=== PATIENT | male | born 1940 | race Caucasian/White ===

== ENCOUNTER → 2019-10-18 12:07 | Outpatient (BNVA) | payer MEDICARE, OTHER, SELFPAY | PROVIDERS: PCP Physician Assistant Medical; Visit Provider Internal Medicine Cardiovascular Disease | DX: I25.10 Atherosclerotic heart disease of native coronary artery without angina pectoris (principal); R94.39 Abnormal result of other cardiovascular function study; Z79.01 Long term (current) use of anticoagulants; R06.02 Shortness of breath; R07.1 Chest pain on breathing; E78.2 Mixed hyperlipidemia; I10 Essential (primary) hypertension; E11.65 Type 2 diabetes mellitus with hyperglycemia | CPT/HCPCS: 80048; 85025 ==

== ENCOUNTER 2019-10-19 13:51 | Observation (INO) | payer MEDICARE, OTHER, SELFPAY ==
--- NOTE | 2019-10-18 12:00 | XR_ITS ---
WS: [id number] XR chest 2V* [id number] REASON FOR EXAM: chest pain FINDINGS: The heart mediastinum are normal. The lung thomason are well aerated. No pneumonia, pleural effusion, pulmonary edema, or pneumothorax. The hilum and apices are normal. No osseous abnormalities. XR/XR chest 2V* [id number] IMPRESSION: Negative chest for acute pathology.
[2019-10-19] VITALS (45 sets, daily range): BP systolic 93–163; BP diastolic 45–134; PULSE 59–93; RESP 13–24; TEMP 36.6; O2SAT 95–100; BMI 25.4
--- NOTE | 2019-10-19 10:00 | XACV_ITS ---
Ht: 178 cm Wt: 80 kg BSA: 2.00 m2 Gender: Male : 1940 Any Known Allergies: No known allergies Exam Priority: Routine Procedure(s): Procedure Description: Diagnostic procedure Procedure Description: PCI procedure Procedure Description: Drug Eluting Coronary Stent Procedure Description: PTCA Procedure Description: Miscellaneous Procedure Description: ACT Procedure Description: Coronary Angiography Diagnostic Cath Status: Elective Diagnostic Findings Coronary angiography shows right dominance. The left main is a medium caliber vessel with mild diffuse disease. The left artery descending artery is a medium caliber vessel which appears to taper off towards the LV apex. The proximal stented segment of the LAD was found to be patent. No significant in-stent stenosis. The mid LAD was found to have minimal intimal irregularities. After the third diagonal branch, the LAD proper was found to have around 80 to 90% tubular narrowing. The distal LAD is a very small caliber vessel. The first septal heel sprayer was found to have 80 to 90% diffuse narrowing proximally. No other significant stenosis. The left circumflex artery is a medium caliber vessel. After giving off the first obtuse marginal branch, the circumflex artery was found to have around 90% lesion, involving the ostium. The mid and distal circumflex artery appears to have no significant stenotic lesions. The right coronary artery is a medium to large caliber vessel with was found to have mild diffuse intimal irregularities in the mid and distal segments. No significant stenotic lesions. The first RV branch also was found to be relatively long vessel with mild diffuse intimal irregularities. PCI Status: Elective Interventional Findings Mid Circumflex Coronary Artery: 99% stenosis treated with AB TREK 2.50X12 RX BALLOON, MDT R TYRELL 3.0X8 TIFFANY, and MDT CARMENZA EUPHORA RX 3.06R37CL BALLOON. 0% residual stenosis, BHARATHI: 3 flow. First Obtuse Marginal Branch Segment: 70% stenosis treated with AB MINI TREK 2.00X6 RX BALLOON. 0% residual stenosis, BHARATHI: 3 flow. Conclusions This is an 79-year-old white male with a history of hypertension, diabetes, dyslipidemia, coronary disease, status post PCI of the LAD in 2015, presenting with increasing episodes of chest pain and shortness of breath. He had a myocardial perfusion imaging in September of last year which revealed some areas of reversible and reversible defects. Because of the patient symptoms, a cardiac catheterization was recommended at that time. But the patient was wanting to wait and try medications. Lately his symptoms are getting worse. For that reason, a repeat cardiac catheterization was recommended. Patient underwent left heart catheterization with left and right coronary angiogram and LV angiogram today. The findings are as follows. The stented segment of the LAD was patent. There was a high-grade lesion in the distal LAD after the third diagonal branch. The distal left anterior descending artery was found to be a small caliber vessel . There is a high-grade lesion of around 90% at the mid circumflex, soon after the takeoff of the first obtuse marginal branch. Mild diffuse disease in the other vessels. LV ejection fraction was 55%. LVEDP 15 mmHg. Mild hypokinesia of the LV apex. I discussed and reviewed the cardiac catheterization data with It was thought to be appropriate to consider PCI of the circumflex and possible LAD lesions. Dr. Thompson took over further management of this patient at this point. Mid Circumflex Coronary Artery was treated with two Balloon and Drug Eluting Stent. First Obtuse Marginal Branch Segment was treated with Balloon. Recommendations 1-Return to inpatient for close monitoring and routine cath care2-Risk factor modification for secondary prevention3-Statin and aspirin 81 mg life--long, if tolerated4-Plavix 75mg p.o. daily for at least one year. We will assess at the end of one year again to continue if further or not5-Continue optimal medical management. Interventional RX Recommendation: PCI w/o planned CABG Diagnostic RX Recommendation: PCI w/o planned CABG Ejection Fraction: 55.0 % LV EDP: 15 mmHg Left Ventriculography Findings: The LV gram was performed the FONTENOT projection. The LV cavity appears to be of normal size. There is mild hypokinesia of the LV apex. No significant mitral valve prolapse or any mitral regurgitation. Pressures Phase:Rest AO : 134 mmHg / 63 mmHg ( 93 mmHg ) @ 7:42:00 AM 131 mmHg / 61 mmHg ( 90 mmHg ) @ 7:42:00 AM LV : 124 mmHg / -10 mmHg / @ 7:40:00 AM 120 mmHg / 1 mmHg / @ 7:42:00 AM 122 mmHg / -1 mmHg / @ 7:42:00 AM Valves Phase:DefaultPhase AV : 0.0 mmHg @ 1:42:09 PM AV Mean Gradient: 0.0 mmHg @ 1:42:09 PM Clinical Evaluation EBL: 5mL-10mL Procedural Details Procedure Consent Obtained. Pre-Procedure Time Out. Identified patient by full name and date of as verbalized by the patient/guarantor. Does the consent match the physician's order: Yes. Accurate & Complete Informed Consent: Yes. Inpatient/Outpatient History & Physical on Chart: Yes. If H&P is completed, is and addenduem needed: No; If yes, is the addendum complete: N/A. Visualize and Verify Site with Patient/Guarantor: N/A. Relevant Radiology Images available: Yes. Pre-op teaching completed and patient verbalized understanding. The risks, benefits, and alternatives of sedation and/or procedure were discussed by physician. The patient agrees to continue. Procedure started. Correct patient, site and procedure confirmed by cath team. Current diagnosis: Chest Pain. PERRLA. 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 Lungs clear x 5 lobes. IV Site on Arrival: 18 gauge in the left anticubital. IV Fluids: 0.9% NaCl at KVO. 0 mL infused prior to woven label designer. Oxygen started at 2liters/min via nasal canula. bilateral groins was prepped with chloroprep then draped in the usual sterile fashion. right radial was prepped with chloroprep then draped in the usual sterile fashion. Physician notified. Baseline sample Acquired. HR: 60 BPM. Physician arrived. Equipment: 6F - Radial. Game [employer] Manifold Kit Model BT 2000. Cardiac Cath Pack. Heparinized Saline (2 units/mL), 1000 mL bag. Physician scrubbed in. Immediate Pre-Procedure Time Out. Correct Patient: Yes; Correct Procedure: Yes; Correct Site: Yes; Correct Patient Position: Yes; Correct Supplies: Yes; Dried Flammable Prep: Yes; Blood Products Available: No;. Lidocaine 1% infiltrated to the right radial. Unable to obtain radial access. MD attempting to gain access in the Femoral artery. Lidocaine 1% infiltrated to the right groin. Arterial access obtained with micropuncture set. A 5 andorran JL4 catheter in over wire. Multiple views taken of left coronary artery. Catheter out. A 5 andorran JR4 catheter in over wire. Multiple views taken of right coronary artery. A 5 andorran Angled Pig catheter in over wire. Dr. Thompson contacted. EDP Sample taken: LV 124/-11,11; HR: 80 BPM; SpO2: 96%. Dr. Thompson arrived. LV gram performed in FONTENOT @ 10 mL/second for a total of 30 mL. EDP Sample taken: LV 120/1,12; HR: 78 BPM; SpO2: 96%. Pullback taken: LV 122/-2,13; AO 134/63(93); Mean: 0mmHg, Peak to Peak: 0mmHg, SEP: 7sec/min; HR: 78 BPM; SpO2: 96%. Flushing sheath periodically to maintain patency. Dr. Soto scrubbed out to review films. Dr. Thompson scrubbed in. Dr. Soto contacted and spoke with patient's . 6 andorran XB 3.5 guide catheter was inserted over the wire. [place] guidewire was advanced through the guide catheter to lesion in the mid Circ. Inflation number : 1 A AB TREK 2.50X12 RX BALLOON was prepped and advanced across the Mid CX , then inflated to 12 DANII for 0:09 seconds. Inflation number: 2 The AB TREK 2.50X12 RX BALLOON was reinflated across the Mid CX, to 12 DANII for 0:11 seconds. Balloon out. Inflation Number : 3 Yves Olivo TYRELL 3.0X8 TIFFANY -Lot Number# [id number] was prepped and advanced across the Mid CX. The stent was deployed at 12 DANII for 0:12 seconds. Stent expiration date: 05-15-2021. Stent balloon out over wire. Inflation number : 4 A MDT NC EUPHORA RX [id number] BALLOON was prepped and advanced across the Mid CX , then inflated to 12 DANII for 0:15 seconds. Inflation number: 5 The MDT NC EUPHORA RX 3.13S28BP BALLOON was reinflated across the Mid CX, to 12 DANII for 0:08 seconds. [place] wire out. ACT drawn. Results 277 seconds. Therapeutic limits - pre-heparin administration 90-150 seconds and monitoring heparin during a vascular procedure >250 seconds. Runthrough wire inserted. Inflation number : 1 A AB MINI TREK 2.00X6 RX BALLOON was prepped and advanced across the 1st Ob Ofe , then inflated to 10 DANII for 0:12 seconds. Inflation number: 2 The AB MINI TREK 2.00X6 RX BALLOON was reinflated across the 1st Ob Ofe, to 10 DANII for 0:06 seconds. Balloon and runthrough wire out. Sheath(s) sutured into position with 2-0 silk and sterile 4x4's and Op-site applied over the site. No oozing or signs and symptoms of hematoma noted. Arterial sheath flushed and connected to tranducer and pressure bag with heparinized saline. Post Procedure: Pulses reassessed and unchanged. PERRLA. 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 No VTE prophylaxis required. Medication's Wasted: Lidocaine 1% = 6 mL. Medication's Wasted: Heparin = 500 units. Medication's Wasted: Verapamil = 5 mg. Total IV fluids: 150 mL. Contrast type used: Omnipaque 300 mgI/mL, 500 mL bottle. Post-op diagnosis: Obstructive CAD. Complications: None. Estimated blood loss: 5mL-10mL. [facility] Clinical Fraility Score: 4: Vulnerable. Put In Beat Adjuster Indications: Worsening Angina. Chest Pain Symptom Assessment: Atypical Angina. Cardiovascular Instability: No. PCI Indication: CAD (without ischemic symptoms). Vital chart was stopped. Procedure completed. Patient transferred by bed to 1st floor. Site: Right Femoral artery Sheath Size: 5 Fr Hemostasis Success: Unsuccessful Procedure Medications Start: 12:09 PM Stop: 12:09 PM Medication: Versed Amount: 1 mg Route: I.V. Start: 12:10 PM Stop: 12:10 PM Medication: Fentanyl Amount: 50 mcg Route: I.V. Start: 12:20 PM Stop: 12:20 PM Medication: Versed Amount: 1 mg Route: I.V. Start: 12:25 PM Stop: 12:25 PM Medication: Versed Amount: 1 mg Route: I.V. Start: 12:25 PM Stop: 12:25 PM Medication: Fentanyl Amount: 50 mcg Route: I.V. Start: 12:28 PM Stop: 12:28 PM Medication: Heparin Amount: 1500 units Route: I.V. Start: 12:54 PM Stop: 12:54 PM Medication: Versed Amount: 1 mg Route: I.V. Start: 12:54 PM Stop: 12:54 PM Medication: Heparin Amount: 7000 units Route: I.V. I, the attending physician, have reviewed and verified all procedure medications. Yes, all medications given per verbal order History/Risk Factors Hypertension: Yes Dyslipidemia: Yes Diabetic Therapy: Insulin Peripheral Arterial Disease (PAD): No Myocardial Infarction (IL): Yes Obesity: No Renal Disease: No Tobacco Use: Never Prior Interventions PCI: Yes CABG: No Valve Surgery: No Date of PCI: 04/17/2016 Report Signatures Interventional Workflow - Finalized by: Franky Thompson MD on 10/31/2019 4:05:38 PM Diagnostic Workflow - Finalized by:Dr Tyra Soto MD [facility] on 10/19/2019 3:24:05 PM
--- NOTE | 2019-10-19 11:19 | W.PM.OPSUD ---
Surgery/Procedure H&P Update DATE OF PROCEDURE: October 19, 2019 DATE H&P PERFORMED: 10/18/19 H&P UPDATE INFORMATION: I have reviewed H&P completed within last 30 days, I have examined patient prior to procedure and No changes to prior documentation PREOP DIAGNOSIS: Atherosclerotic heart disease/unstable angina PLANNED PROCEDURE: Operation Date: 10/19/19 12:00 Proposed Procedures p Cardiac Catheterization(Left) - Tyra Soto MD PATIENT REASSESSED PRIOR TO SEDATION, WITH NO CHANGE NOTED: Yes PHYSICAL EXAM: alert, oriented x 3, clear to auscultation bilaterally and regular rate & rhythm AIRWAY EVAL/ANESTHESIA PLAN: normal airway, ASA III, Monitored Anesthesia, Local Anesthesia, Risks, benefits & alternatives of sedation and/or procedure discussed and Patient agrees to continue as planned
[2019-10-19 15:11] LABS: Glucose Point of Care 78 mg/dL (70-110)
[2019-10-19 16:06] LABS: Glucose Point of Care 125 mg/dL (70-110)
[2019-10-19 16:40] LABS: Partial Thromboplastin Time 156.6 SECONDS (23.9-36.7)
[2019-10-19] MEDS: ALPRAZolam 0.25 mg Tablet 0.125 MG PO (18:24)
--- NOTE | 2019-10-19 19:29 | PC.NURSE ---
REPORT RECEIVED FROM OFF GOING NURSE. PT DENIES PAIN AT THIS TIME. PT WISHES THAT THEY DIDN'T HAVE TO LAY ON THEIR BACK ANYMORE. WAITING ON PTT RESULTS FROM LAB TO COME BACK. DRESSING TO RIGHT GROIN IS C/D/I. SHEETH STILL IN PLACE. RN TO REMOVE PENDING PTT RESULTS. WILL CONTINUE TO MONITOR.
[2019-10-19 19:31] LABS: Partial Thromboplastin Time 33.8 SECONDS (23.9-36.7)
[2019-10-19 20:41] LABS: Glucose Point of Care 271 mg/dL (70-110)
[2019-10-19] MEDS: acetaminophen 325 mg Tablet 650 MG PO (20:53)
--- NOTE | 2019-10-19 21:26 | PC.NURSE ---
Initiated sheath removal at 2202 per protocol using aseptic technique. Hemostasis achieved immediately. Maintained pressure for 20min. No s/s of bleeding or hematoma formation. Dressed site with 2x2 and bio-occlusive. VS monitored every 5min and remained WNL. Patient denies pain to site. Instruction provided regarding site care and restrictions. Patient stated, I have been through this procedure many times verbalizing complete understanding. Positioned patient for comfort.
[2019-10-19 23:41] LABS: Anion Gap 16.1 (5-19); Blood Urea Nitrogen 16 mg/dL (8-23); Calcium 9.3 mg/dL (8.5-10.5); Carbon Dioxide 23 mmol/L (22-29); Chloride 99 mmol/L (98-107); Glucose 149 mg/dL (65-115); Osmolality Calculated 277 mOsm/kg (285-295); Potassium 4.1 mmol/L (3.5-5.1); Sodium 134 mmol/L (136-145)
[2019-10-20] VITALS (9 sets, daily range): BP systolic 105–136; BP diastolic 50–83; PULSE 61–100; RESP 15–22; TEMP 36.5–36.7; O2SAT 95–96
[2019-10-20] MEDS: acetaminophen 325 mg Tablet 650 MG PO (04:47)
[2019-10-20 05:49] LABS: Basophils % 0.2 %; Eosinophils % 0.2 %; Hematocrit 43.5 % (42.0-52.0); Hemoglobin 14.4 g/dL (11.7-16.6); Lymphocytes # 1.1 10^3/uL (0.8-4.8); Lymphocytes % 8.8 %; Mean Corpuscular HGB Conc 33.1 g/dL (30.0-36.0); Mean Corpuscular Hemoglobin 33.4 pg (28.0-34.0); Mean Corpuscular Volume 100.9 fL (80-94); Mean Platelet Volume 10.3 fL (7.4-10.4); Monocytes # 0.7 10^3/uL (0.2-0.9); Monocytes % 5.4 %; Neutrophils # 10.9 10^3/uL (1.8-7.7); Neutrophils % 84.9 %; Nucleated Red Blood Cells % 0 %; Platelet Count 174 10^3/cmm (130-400); Red Blood Count 4.31 10^6/uL (4.1-5.3); Red Cell Distribution Width 12.5 % (12.1-15.1); White Blood Count 12.8 10^3/uL (4.0-10.0)
[2019-10-20 06:11] LABS: Anion Gap 17.2 (5-19); Blood Urea Nitrogen 16 mg/dL (8-23); Calcium 9.3 mg/dL (8.5-10.5); Carbon Dioxide 23 mmol/L (22-29); Chloride 100 mmol/L (98-107); Glucose 93 mg/dL (65-115); Osmolality Calculated 278 mOsm/kg (285-295); Potassium 4.2 mmol/L (3.5-5.1); Sodium 136 mmol/L (136-145)
[2019-10-20 06:23] LABS: Glucose Point of Care 114 mg/dL (70-110)
--- NOTE | 2019-10-20 06:35 | PC.NURSE ---
PT HAD C/O HEADACHE 8/ PAIN. PRN TYLENOL WAS GIVEN. PT DENIES PAIN AT THIS TIME. DRESSING TO RIGHT GROIN IS C/D/I. NO REDNESS OR HEMATOMA PRESENT. WILL DO BESIDE REPORT WITH NURSE.
[2019-10-20 06:39] LABS: Basophils % 0.3 %; Eosinophils # 0.1 10^3/uL (0.0-0.8); Hematocrit 41.5 % (42.0-52.0); Hemoglobin 13.6 g/dL (11.7-16.6); Lymphocytes # 1.7 10^3/uL (0.8-4.8); Lymphocytes % 19.1 %; Mean Corpuscular HGB Conc 32.8 g/dL (30.0-36.0); Mean Corpuscular Hemoglobin 33.5 pg (28.0-34.0); Mean Corpuscular Volume 102.2 fL (80-94); Mean Platelet Volume 10.7 fL (7.4-10.4); Monocytes # 0.7 10^3/uL (0.2-0.9); Monocytes % 7.3 %; Neutrophils # 6.5 10^3/uL (1.8-7.7); Neutrophils % 72.1 %; Nucleated Red Blood Cells % 0 %; Platelet Count 165 10^3/cmm (130-400); Red Blood Count 4.06 10^6/uL (4.1-5.3); Red Cell Distribution Width 12.6 % (12.1-15.1)
[2019-10-20] MEDS: aspirin 81 mg EC Tablet PO (09:14)
[2019-10-20] MEDS: clopidogrel 75 mg Tablet PO (09:14)
[2019-10-20] MEDS: ALPRAZolam 0.25 mg Tablet 0.125 MG PO (09:14)
[2019-10-20] MEDS: lisinopril 10 mg Tablet 30 MG PO (09:15)
--- NOTE | 2019-10-20 09:49 | PM.DCS ---
Discharge Providers Date of Admission: 10/19/19 13:51 Date of Discharge: October 20, 2019 Attending Provider at Admission: Tyra Soto MD Attending Provider at Discharge: Robyn Rehman MD Primary Care Provider: Porter Mirza Diagnoses at Discharge Discharge Diagnosis (1) Abnormal stress test: Status: Acute (2) CAD (coronary artery disease): Status: Acute Problem details: Status post drug-eluting stent placement to mid circumflex and balloon angioplasty of jailed first obtuse marginal. Continue dual antiplatelet therapy and low-dose Crestor. Qualifiers: Coronary Disease-Associated Artery/Lesion type: cantwell artery [place] vs. transplanted heart: cantwell heart Associated angina: without angina Qualified Code(s): I25.10 - Atherosclerotic heart disease of cantwell coronary artery without angina pectoris (3) Hypertension: Status: Acute Problem details: Well-controlled. Continue current medications. Qualifiers: Hypertension type: essential hypertension Qualified Code(s): I10 - Essential (primary) hypertension (4) Hyperlipidemia: Status: Acute Qualifiers: Hyperlipidemia type: mixed hyperlipidemia Qualified Code(s): E78.2 - Mixed hyperlipidemia (5) Diabetes: Status: Acute Qualifiers: Diabetes mellitus type: type 2 Diabetes mellitus custodial insulin use: without custodial use Diabetes mellitus complication status: with hyperglycemia Qualified Code(s): E11.65 - Type 2 diabetes mellitus with hyperglycemia Reason for Visit Reason for Visit: NO DX AVAILABLE Brief History: Clinton is a 78-year-old man with past medical history of coronary artery disease status post drug-eluting stent placement in proximal LAD after non-ST elevation [place] in April 2016, hypertension, hyperlipidemia, diabetes mellitus type 2, history of TIA with right-sided weakness on 24 October 2018. He usually follows up with Dr. Soto and last saw him on 18 October 2019. He started having some left arm and chest pain and subsequently underwent sestamibi myocardial perfusion imaging that revealed moderate area of moderately decreased persistent tracer uptake in inferior and inferolateral hodges with subtle area of inconsistent reversibility in mid inferior and inferolateral hodges. Left ventricular ejection fraction was 86% with no regional wall motion abnormality. Given these findings, patient underwent elective outpatient coronary angiogram. Hospital Course Hospital Course: Patient underwent coronary angiogram with Dr. Soto and Dr. Thompson. He was found to have 99% stenosis of mid circumflex and underwent drug-eluting stent placement x 1. OM1 was jailed and underwent ballooning with good results at the end of the procedure. His only concern this morning is episodes of dizziness that he has been having for a while. Denies having any chest pain or shortness of breath. Physical Exam Narrative: EXAM NARRATIVE: GENERAL: Averagely built and averagely nourished in no acute distress HEENT: Extraocular movement intact. Pupils equal round reactive to light. No pallor or icterus. NECK: central trachea, no JVD, No carotid bruit. CARDIOVASCULAR SYSTEM: S1-S2 regular. No S3 or S4 present. No murmur rubs or gallops. RESPIRATORY SYSTEM: Chest clear to auscultation. No wheezes rhonchi or rubs heard. No use of accessory muscles. EXTREMITIES: No cyanosis or clubbing. No edema. No signs of chronic venous insufficiency. Right femoral access site with no significant bruising or hematoma. 2+ femoral, dorsalis pedis COUNTERINTELLIGENCE AGENT: Patient is alert oriented ?3. No focal neurological deficits. PSYCH: Normal insight and judgment. Discharge Data Data Completed and Pending: Completed Studies During Hospitalization Category Date Time Status XR chest 2V* [id number] 6 Routine Exams 10/18/19 12:00 Completed Pending at discharge Category Date Time Status PROJECT GEOPHYSICIST request for service Routin e Exams 10/19/19 10:00 Taken Labs from last 24 hours 10/20/19 10/20/19 10/20/19 06:15 05:10 05:10 WBC 12.8 H RBC 4.31 Hgb 14.4 Hct 43.5 MCV 100.9 H MCH 33.4 MCHC 33.1 RDW 12.5 Plt Count 174 MPV 10.3 Neut % (Auto) 84.9 Lymph % (Auto) 8.8 [place] % (Auto) 5.4 Eos % (Auto) 0.2 Baso % (Auto) 0.2 Neut # (Auto) 10.9 H Lymph # (Auto) 1.1 [place] # (Auto) 0.7 Eos # (Auto) 0.0 Baso # (Auto) 0.0 Nucleated RBC % (a uto) 0 Nucleated RBCs # 0.0 APTT Sodium 136 Potassium 4.2 Chloride 100 Carbon Dioxide 23 Anion Gap 17.2 BUN 16 Creatinine 1.0 Glucose 93 POC Glucose 114 Calculated Osmolal ity 278 L Calcium 9.3 06/19/20 06/19/20 06/19/20 23:10 23:10 20:03 WBC 9.0 RBC 4.06 L Hgb 13.6 Hct 41.5 L MCV 102.2 H MCH 33.5 MCHC 32.8 RDW 12.6 Plt Count 165 MPV 10.7 H Neut % (Auto) 72.1 Lymph % (Auto) 19.1 [place] % (Auto) 7.3 Eos % (Auto) 1.0 Baso % (Auto) 0.3 Neut # (Auto) 6.5 Lymph # (Auto) 1.7 [place] # (Auto) 0.7 Eos # (Auto) 0.1 Baso # (Auto) 0.0 Nucleated RBC % (a uto) 0 Nucleated RBCs # 0.0 APTT Sodium 134 L Potassium 4.1 Chloride 99 Carbon Dioxide 23 Anion Gap 16.1 BUN 16 Creatinine 1.0 Glucose 149 H POC Glucose 271 Calculated Osmolal ity 277 L Calcium 9.3 10/19/19 10/19/19 10/19/19 19:03 17:30 16:00 WBC RBC Hgb Hct MCV MCH MCHC RDW Plt Count MPV Neut % (Auto) Lymph % (Auto) [place] % (Auto) Eos % (Auto) Baso % (Auto) Neut # (Auto) Lymph # (Auto) [place] # (Auto) Eos # (Auto) Baso # (Auto) Nucleated RBC % (a uto) Nucleated RBCs # APTT 33.8 66.0 H D Sodium Potassium Chloride Carbon Dioxide Anion Gap BUN Creatinine Glucose POC Glucose 125 Calculated Osmolal ity Calcium 10/19/19 10/19/19 15:45 15:03 WBC RBC Hgb Hct MCV MCH MCHC RDW Plt Count MPV Neut % (Auto) Lymph % (Auto) [place] % (Auto) Eos % (Auto) Baso % (Auto) Neut # (Auto) Lymph # (Auto) [place] # (Auto) Eos # (Auto) Baso # (Auto) Nucleated RBC % (a uto) Nucleated RBCs # APTT 156.6 H* Sodium Potassium Chloride Carbon Dioxide Anion Gap BUN Creatinine Glucose POC Glucose 78 Calculated Osmolal ity Calcium Vitals: Last Vital Signs Temp 98.0 F 10/20/19 07:23 Pulse 79 10/20/19 07:23 Resp 15 10/20/19 07:23 BP 136/82 10/20/19 07:23 Pulse Ox 95 10/20/19 07:23 Discharge Plan Discharge Patient Disposition: Home, Self-Care Condition: Stable Prescriptions: Continued lisinopril 30 mg tablet 30 mg PO DAILY RF: 0 clopidogrel 75 mg tablet 75 mg PO DAILY RF: 0 rosuvastatin 5 mg tablet 5 mg PO DAILY RF: 0 Tresiba FlexTouch U-100 100 unit/mL (3 mL) insulin pen 12 unit SUBCUT DAILY RF: 0 nitroglycerin [Nitrostat] 0.4 mg tablet, sublingual 0.4 mg SUBLINGUAL Q5M PRN (Reason: Chest Pain) RF: 0 glipizide 10 mg tablet extended release 24hr 10 mg PO BID RF: 0 alprazolam 0.25 mg tablet 0.125 mg PO BID RF: 0 aspirin [Adult Low Dose Aspirin] 81 mg tablet,delayed release (DR/EC) 81 mg PO DAILY RF: 0 Discharge Orders: Discharge Order (Routine); Ordered 10/20/19 Ordered By: Robyn Rehman Referrals: Tyra Soto MD [Physician] - 3 months Nicki Martinez FNP [Nurse Practitioner] - 1 week (Post cath. Follow up for site check and BMP) Discharge Diet: Cardiac and Low Fat Discharge Activity: Increase activity as tolerated Patient Instructions: Left Heart Catheterization (DC) Activity Restrictions/Additional Instructions: Do not lift anything more than 10 lbs for 1 week. Keep the site dry and clean Take medications as prescribed and follow up as scheduled. Discharge Attestations Time Spent in Discharge Care*: less than 30 min Specific Discharge Activities: Specific discharge activities: educating patient and documenting/other paperwork Status at Discharge: Cognitive status at discharge: cognitively intact, Behavioral status at discharge: cooperative, Functional status at discharge: independent ambulation Quality Metrics Clinical Quality Measures During this hospital stay, did patient experience: None Coding Level of Care Code Acute Supervisor Residential for [facility] Diagnoses Abnormal stress test R94.39 CAD (coronary artery disease) I25.10 Coronary Disease-Associated Artery/Lesion type: cantwell artery [place] vs. transplanted heart: cantwell heart Associated angina: without angina Hypertension I10 Hypertension type: essential hypertension Hyperlipidemia E78.2 Hyperlipidemia type: mixed hyperlipidemia Diabetes E11.65 Diabetes mellitus type: type 2 Diabetes mellitus custodial insulin use: without custodial use Diabetes mellitus complication status: with hyperglycemia
--- NOTE | 2019-10-20 11:11 | PC.NURSE ---
Discharge to home Instructed pt on ff-up appointments. Educated pt on post angiogram home care instructions such as activity, how to take care of his incision and what to expect. Informed pt to take his glipizide starting tomorrow as ordered and to continue the rest of his home meds. Pt verbalizes understanding. Discharge papers provided. Ushered pt via wheelchair to E.R
== END 2019-10-20 11:07 | disposition home or self-care (01) ==
LOC: CSU 13:53
PROVIDERS: Internal Medicine Cardiovascular Disease; Admitting Provider Internal Medicine Cardiovascular Disease; PCP Physician Assistant Medical; Visit Provider Internal Medicine Cardiovascular Disease
DX: I25.110 Atherosclerotic heart disease of native coronary artery with unstable angina pectoris (principal); R94.39 Abnormal result of other cardiovascular function study; E78.2 Mixed hyperlipidemia; I10 Essential (primary) hypertension; E11.65 Type 2 diabetes mellitus with hyperglycemia; I25.10 Atherosclerotic heart disease of native coronary artery without angina pectoris; Z79.01 Long term (current) use of anticoagulants; R06.02 Shortness of breath; R07.1 Chest pain on breathing
CPT/HCPCS: 12345; 36415; 36416; 71046; 80048; 82962; 85025; 85347; 85730; 93452; 96372; C1725; C1769; C1874; C1887; C1894; C9600; G0378; J1644; J1815; J2001; J2250; J3010; J3490; J7030; Q0163; Q9967

== ENCOUNTER → 2019-10-29 10:56 | Outpatient (BNVA) | payer MEDICARE, OTHER, SELFPAY | PROVIDERS: PCP Physician Assistant Medical; Visit Provider Internal Medicine Cardiovascular Disease | DX: R07.1 Chest pain on breathing (principal); R06.02 Shortness of breath; E78.2 Mixed hyperlipidemia; I25.10 Atherosclerotic heart disease of native coronary artery without angina pectoris; E11.65 Type 2 diabetes mellitus with hyperglycemia; I10 Essential (primary) hypertension | CPT/HCPCS: 80048; 84484 ==

== ENCOUNTER → 2019-12-26 15:02 | Outpatient (BNVA) | payer MEDICARE, OTHER, SELFPAY | PROVIDERS: PCP Physician Assistant Medical; Visit Provider Internal Medicine Cardiovascular Disease | DX: Z79.01 Long term (current) use of anticoagulants (principal); R06.02 Shortness of breath | CPT/HCPCS: 80048; 85025 ==

== ENCOUNTER → 2020-02-25 15:02 | Outpatient (BNVA) | payer MEDICARE, OTHER, SELFPAY | PROVIDERS: PCP Physician Assistant Medical; Visit Provider Internal Medicine Cardiovascular Disease | DX: I25.10 Atherosclerotic heart disease of native coronary artery without angina pectoris (principal); Z79.01 Long term (current) use of anticoagulants; R06.02 Shortness of breath; R07.1 Chest pain on breathing; I10 Essential (primary) hypertension; R07.9 Chest pain, unspecified | CPT/HCPCS: 80048 ==

== ENCOUNTER 2021-03-29 15:20 | Inpatient (IN) | payer MEDICARE, OTHER, SELFPAY ==
[2021-03-29] VITALS (7 sets, daily range): BP systolic 125–161; BP diastolic 74–89; PULSE 69–100; RESP 13–18; TEMP 36.3; O2SAT 98–100; BMI 26.5
--- NOTE | 2021-03-29 15:44 | XRR_ITS ---
PROCEDURE INFORMATION: Exam: XR Chest Exam date and time: 03/29/2021 3:44 PM Age: 80 years old Clinical indication: Left-sided; Patient HX: Chest pain down L arm TECHNIQUE: Imaging protocol: XR of the chest. Views: 1 view. Total images: 1 COMPARISON: CR XR chest 2V* [id number] 10/18/2019 2:12 PM FINDINGS: Lungs: Minimal left basilar costophrenic angle subsegmental consolidated alveolar airspace disease which could reflect atelectasis and/or pneumonia. Pleural spaces: No visible pneumothorax or pleural effusion. Heart/Mediastinum: Cardiac structures and configuration with arteriosclerosis. Bones/joints: Unremarkable. XR/XR chest 1V portable [id number] IMPRESSION: Minimal left basilar costophrenic angle subsegmental consolidated alveolar airspace disease which could reflect atelectasis and/or pneumonia. Radiation Dose CTDIVOL = (mGy): DLP = (mGy-cm)
--- NOTE | 2021-03-29 15:45 | ECG_ITS ---
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
[2021-03-29] MEDS: aspirin 325 mg Tablet PO (16:08)
--- NOTE | 2021-03-29 16:09 | W.ED.CHESTPA ---
Documented by User: Davina Mir 03/29/21 16:12 HPI - Chest Pain General: Chief Complaint: Chest Pain Stated Complaint: CHEST PAIN, LEADING DOWN ARM Time Seen by Provider: 03/29/21 15:33 Source: patient Mode of arrival: ambulatory Limitations: no limitations History of Present Illness: HPI narrative: Mr. Duran is a very nice 80-year-old male who comes in complaining of chest pain intermittently for the past week. He describes the pain is left-sided that causes him to have pain radiate down his left arm. It is brought on or made worse by exertion. It is relieved by rest and somewhat by nitroglycerin. He denies any nausea or vomiting and denies any diaphoresis. Patient states that the pain will last anywhere up to a few minutes to 2 hours. Today it is worse in intensity and how long it lasted. Because of this and having history of heart problems he came into the hospital to be evaluated. Associated symptoms: Deny abdominal pain, diaphoresis, dyspnea, fever(s), nausea, palpitations, syncope or vomiting Review of Systems Const: Denies: fever(s), chills, body aches, fatigue, malaise or diaphoresis Eyes: Denies: change in vision, blurry vision, photophobia, eye discomfort, eye discharge, eye redness or yellow eyes ENMT: Denies: throat pain, odynophagia, hoarseness, swelling of lips/tongue, ear or mastoid pain, ear discharge, change in hearing or nasal discharge Card: Reports: chest pain and dyspnea on exertion; Denies: palpitations, irregular heart rhythm, edema, lightheadedness, syncope, pre-syncope or orthopnea Resp: Denies: dyspnea, productive cough, non-productive cough, wheezing, hemoptysis or chest congestion GI: Denies: abdominal pain, nausea, vomiting, hematemesis, coffee ground emesis, heartburn, diarrhea, constipation, GI cramping, hematochezia or melena : Denies: flank pain, dysuria, urinary frequency, urinary urgency or hematuria Musc: Denies: neck pain, back pain, extremity pain, extremity swelling, joint pain, joint swelling, joint redness, joint warmth or joint stiffness Skin/Breast: Denies: rash, pruritus, erythema, skin pain or skin tenderness Neuro: Denies: headache(s), numbness in extremities, weakness in extremities, sensory changes, lack of coordination, difficulty walking, dizziness, vertigo, confusion, Slurred speech present or seizure-like activity Wyatt/Lymph: Denies: easy bruising, easy bleeding, petechiae, purpura or enlarged lymph nodes All/Imm: Denies: urticaria, throat swelling, tongue swelling, facial swelling or acute wheezing PFSH ED PFSH: Medical History Abnormal stress test Atherosclerotic heart disease of [place] coronary artery with other forms of angina pectoris EKG revealed on 12/26/2019 revealed a sinus rhythm with a normal ST-T's. No evidence of pericarditis or ischemia. CAD (coronary artery disease) Status post drug-eluting stent placement to mid circumflex and balloon angioplasty of jailed first obtuse marginal. Continue dual antiplatelet therapy and low-dose Crestor. Chest pain Diabetes Dizziness Hyperlipidemia Hypertension Well-controlled. Continue current medications. Osteoarthritis Renal insufficiency TIA (transient ischemic attack) Surgical History H/O hernia repair H/O vein stripping History of back surgery Stented coronary artery Family History Brother Cancer Chronic kidney disease (CKD) Diabetes Mother Diabetes Father Diabetes Sister Diabetes Denies family history of CAD (coronary artery disease) Clotting disorder Dementia Suicide Anesthesia complication Bleeding disorder Lung disease Stroke Social History Smoking and tobacco status: never smoked Alcohol intake: never Physical Exam Const: COMMON NORMALS: no acute distress, patient oriented x3, no limitations and alert GENERAL APPEARANCE: cooperative HENMT: COMMON NORMALS: normocephalic, atraumatic, external ears normal, EAC's normal and Normal external nose present HEAD & SCALP: normal to inspection, normocephalic and atraumatic FACE & SINUS: normal facial exam and face symmetric NOSE: Normal external nose present and Normal nares present EXTERNAL EAR: Yes external ears normal EXTERNAL AUDITORY CANAL: EAC's normal MOUTH: Normal oral and palatal mucosa present, lip normal and tongue normal Eye: COMMON NORMALS: Equal, round and reactive pupils present and conjunctivae normal GENERAL EYE: appearance normal, both eyes and all related structures ALIGNMENT: Yes alignment normal PERIORBITAL: periorbital findings normal EYELID: eyelids normal CONJUNCTIVA: Yes conjunctivae normal SCLERA: sclerae normal PUPIL: Yes Equal, round and reactive pupils present Neck/C-Spine: COMMON NORMALS: full ROM, no lymphadenopathy, supple, no meningeal signs and no JVD GENERAL: Yes normal visual inspection and Yes trachea midline Chest: COMMONS NORMALS: normal inspection of the chest and normal palpation of entire chest wall Resp: COMMON NORMALS: normal respiratory effort, No retractions, No use of accessory muscles and clear to auscultation bilaterally EFFORT & INSPECTION: Yes able to speak in complete sentences and Yes symmetric chest movement AUSCULTATION: clear to auscultation bilaterally, no crackles, no rales, no rhonchi and no wheezes Cardio: COMMON NORMALS: no JVD, regular rate, regular rhythm, S1 normal heart sound present and S2 normal heart sound present RATE: regular rate RHYTHM: regular rhythm HEART SOUNDS: S1 normal heart sound present, S2 normal heart sound present, no click, no gallops, no murmurs and no rubs GI: COMMON NORMALS: Soft to palpation and No hepatosplenomegaly present PALPATION: Yes Soft to palpation, No Tenderness to palpation present (GI), No Guarding due to palpation present (GI), No Rigid due to palpation, Yes No hepatosplenomegaly present, No Hernia present, No Palpable mass present and No Pulsatile mass present : COMMON NORMALS: Yes no CVA tenderness BLADDER/KIDNEY EXAM: Yes no CVA tenderness Back/Pelvis: COMMON NORMALS: no CVA tenderness, thoracic and lumbar spine normal to inspection, no thoracic nor lumbar tenderness and thoraco-lumbar ROM normal Extremity: COMMON NORMALS: normal to inspection, full ROM, capillary refill normal, no joint enlargement, no clubbing, cyanosis or edema and no calf tenderness Neuro: COMMON NORMALS: patient oriented x3, CN's II-XII intact bilaterally, moves all extremities, no focal motor deficits and no sensory deficits noted SENSORIUM/ORIENTATION: Yes alert MENINGEAL SIGNS: Yes no meningeal signs SPEECH: speech normal Psych: COMMON NORMALS: mental status grossly normal, Normal thought process present, cooperative, normal affect, speech normal and activity/motor behavior normal SPEECH: Yes normal speech THOUGHT PROCESS: Normal thought process present Skin: COMMON NORMALS: no rashes or lesions noted, turgor normal, no jaundice, no petechiae and no mottling GENERAL SKIN EXAM: no rashes or lesions noted and turgor normal Course Vital Signs: Vital signs: Vital Signs Temperature 97.3 F L 03/29/21 15:33 Pulse Rate 100 03/29/21 20:39 Respiratory Rate 18 03/29/21 20:39 Blood Pressure 157/89 03/29/21 20:39 Pulse Oximetry 99 03/29/21 20:39 MDM - Chest Pain Lab Data: Labs: Lab Results 03/29/21 03/29/21 03/29/21 16:16 17:25 17:25 WBC 7.9 10^3/uL 10^3/ uL (4.0-10.0) RBC 4.36 10^6/uL 10^6 /uL (4.1-5.3) Hgb 14.4 g/dL g/dL (11.7-16.6) Hct 43.2 % % (42.0-52.0) MCV 99.1 fl H fl (80-94) MCH 33.0 pg pg (28.0-34.0) MCHC 33.3 g/dL g/dL (30.0-36.0) RDW 12.4 % % (12.1-15.1) Plt Count 184 10^3/cmm 10^3 /cmm (130-400) MPV 10.1 fL fL (7.4-10.4) Neut % (Auto) 75.8 % % Lymph % (Auto) 16.5 % % [place] % (Auto) 6.2 % % Eos % (Auto) 1.1 % % Baso % (Auto) 0.1 % % Neut # (Auto) 5.99 10^3/uL 10^3 /uL (1.8-7.7) Lymph # (Auto) 1.3 10^3/uL 10^3/ uL (0.8-4.8) [place] # (Auto) 0.5 10^3/uL 10^3/ uL (0.2-0.9) Eos # (Auto) 0.1 10^3/uL 10^3/ uL (0.0-0.8) Baso # (Auto) 0.0 10^3/uL 10^3/ uL (0.0-0.1) Nucleated RBC % (a uto) 0 % % Nucleated RBCs # 0.0 /100WBC /100W BC Sodium 134 mmol/L L mmol /L (136-145) Potassium 4.3 mmol/L mmol/L (3.5-5.1) Chloride 99 mmol/L mmol/L (98-107) Carbon Dioxide 22 mmol/L mmol/L (22-29) Anion Gap 17.3 (5-19) BUN 16 mg/dL mg/dL (8-23) Creatinine 1.1 mg/dL mg/dL (0.7-1.2) GFR Calculation Not Reportable Glucose 381 mg/dL H mg/dL (65-115) Calculated Osmolal ity 295 mOsm/kg mOsm/ kg (285-295) Calcium 8.5 mg/dL mg/dL (8.5-10.5) Magnesium 2.0 mg/dL mg/dL (1.7-2.3) Total Bilirubin 0.3 mg/dL mg/dL (0.15-1.2) AST 14 U/L U/L (0-40) ALT 15 U/L U/L (0-41) Alkaline Phosphata se 120 IU/L IU/L (40-130) Troponin T Baselin e Troponin T 120 Min [place] Troponin T Total Protein 6.1 g/dL L g/dL (6.6-8.7) Albumin 4.1 g/dL g/dL (3.5-5.2) Globulin 2.0 g/dL g/dL (1.3-4.6) Urine Color Yellow (Yellow) Urine Appearance Clear (CLEAR) Urine pH 5 (5-7) Ur Specific Gravit y 1.020 (1.005-1.030) Urine Protein Neg (Negative) Urine Glucose (UA) 4+ H (Normal) Urine Ketones Negative (Negative) Urine Blood Neg (Negative) Urine Nitrate Negative (Negative) Urine Bilirubin Neg (Negative) Urine Urobilinogen Norm mg/dL mg/dL (Negative) Ur Leukocyte Love ase Negative (Negative) 03/29/21 03/29/21 17:25 19:28 WBC RBC Hgb Hct MCV MCH MCHC RDW Plt Count MPV Neut % (Auto) Lymph % (Auto) [place] % (Auto) Eos % (Auto) Baso % (Auto) Neut # (Auto) Lymph # (Auto) [place] # (Auto) Eos # (Auto) Baso # (Auto) Nucleated RBC % (a uto) Nucleated RBCs # Sodium Potassium Chloride Carbon Dioxide Anion Gap BUN Creatinine GFR Calculation Glucose Calculated Osmolal ity Calcium Magnesium Total Bilirubin AST ALT Alkaline Phosphata se Troponin T Baselin e 15 ng/L ng/L (0-15) Troponin T 120 Min [place] 15.02 ng/L H ng/L (0-15) Delta Troponin T 0.02 ABS# ABS# (0-10) Total Protein Albumin Globulin Urine Color Urine Appearance Urine pH Ur Specific Gravit y Urine Protein Urine Glucose (UA) Urine Ketones Urine Blood Urine Nitrate Urine Bilirubin Urine Urobilinogen Ur Leukocyte Love ase EKG Data^: EKG 1: EKG interpretation date: 03/29/21 EKG interpretation time: 16:12 Interpretation: Normal sinus rhythm at 81 beats a minute, left axis deviation, no blocks, normal intervals, no acute ST or T wave changes. Discharge Plan Discharge Patient Disposition: Placed in Observation Clinical Impression: CAD (coronary artery disease) Chest pain Qualifiers: Chest pain type: precordial pain Qualified Code(s): R07.2 - Precordial pain Coding Level of Care Code ED Microbiology Analyst for Chg Fwd Exam Comprehensive Documented by User: Sander Ruelas DO 03/29/21 22:18 HPI - Chest Pain General: Chief Complaint: Chest Pain Stated Complaint: CHEST PAIN, LEADING DOWN ARM Time Seen by Provider: 03/29/21 15:33 PFSH ED PFSH: Medical History Abnormal stress test Atherosclerotic heart disease of [place] coronary artery with other forms of angina pectoris EKG revealed on 12/26/2019 revealed a sinus rhythm with a normal ST-T's. No evidence of pericarditis or ischemia. CAD (coronary artery disease) Status post drug-eluting stent placement to mid circumflex and balloon angioplasty of jailed first obtuse marginal. Continue dual antiplatelet therapy and low-dose Crestor. Chest pain Diabetes Dizziness Hyperlipidemia Hypertension Well-controlled. Continue current medications. Osteoarthritis Renal insufficiency TIA (transient ischemic attack) Surgical History H/O hernia repair H/O vein stripping History of back surgery Stented coronary artery Family History Brother Cancer Chronic kidney disease (CKD) Diabetes Mother Diabetes Father Diabetes Sister Diabetes Denies family history of CAD (coronary artery disease) Clotting disorder Dementia Suicide Anesthesia complication Bleeding disorder Lung disease Stroke Social History Smoking and tobacco status: never smoked Alcohol intake: never Course Consultations: Consultation #1: ashlee Time: 22:16 Vital Signs: Vital signs: Vital Signs Temperature 97.3 F L 03/29/21 15:33 Pulse Rate 100 03/29/21 20:39 Respiratory Rate 18 03/29/21 20:39 Blood Pressure 157/89 03/29/21 20:39 Pulse Oximetry 99 03/29/21 20:39 MDM - Chest Pain MDM Narrative: Medical decision making narrative: 80-year-old gentleman checked out to me by Dr. Domingo at shift change. This gentleman has a history of coronary disease and has been experiencing crescendoing chest discomfort over the past couple of weeks. His EKG remained unchanged at 2 hours. Both showed sinus rhythm with a first-degree AV block, rate of 70, mild left axis, and no acute ST changes. His troponin did not change. Chest x-ray shows minimal atelectasis in the left lower lobe. His CBC and BMP are essentially normal. He will be observed for a 6-hour troponin, and potentially a stress Lab Data: Labs: Lab Results 03/29/21 03/29/21 03/29/21 16:16 17:25 17:25 WBC 7.9 10^3/uL 10^3/ uL (4.0-10.0) RBC 4.36 10^6/uL 10^6 /uL (4.1-5.3) Hgb 14.4 g/dL g/dL (11.7-16.6) Hct 43.2 % % (42.0-52.0) MCV 99.1 fl H fl (80-94) MCH 33.0 pg pg (28.0-34.0) MCHC 33.3 g/dL g/dL (30.0-36.0) RDW 12.4 % % (12.1-15.1) Plt Count 184 10^3/cmm 10^3 /cmm (130-400) MPV 10.1 fL fL (7.4-10.4) Neut % (Auto) 75.8 % % Lymph % (Auto) 16.5 % % [place] % (Auto) 6.2 % % Eos % (Auto) 1.1 % % Baso % (Auto) 0.1 % % Neut # (Auto) 5.99 10^3/uL 10^3 /uL (1.8-7.7) Lymph # (Auto) 1.3 10^3/uL 10^3/ uL (0.8-4.8) [place] # (Auto) 0.5 10^3/uL 10^3/ uL (0.2-0.9) Eos # (Auto) 0.1 10^3/uL 10^3/ uL (0.0-0.8) Baso # (Auto) 0.0 10^3/uL 10^3/ uL (0.0-0.1) Nucleated RBC % (a uto) 0 % % Nucleated RBCs # 0.0 /100WBC /100W BC Sodium 134 mmol/L L mmol /L (136-145) Potassium 4.3 mmol/L mmol/L (3.5-5.1) Chloride 99 mmol/L mmol/L (98-107) Carbon Dioxide 22 mmol/L mmol/L (22-29) Anion Gap 17.3 (5-19) BUN 16 mg/dL mg/dL (8-23) Creatinine 1.1 mg/dL mg/dL (0.7-1.2) GFR Calculation Not Reportable Glucose 381 mg/dL H mg/dL (65-115) Calculated Osmolal ity 295 mOsm/kg mOsm/ kg (285-295) Calcium 8.5 mg/dL mg/dL (8.5-10.5) Magnesium 2.0 mg/dL mg/dL (1.7-2.3) Total Bilirubin 0.3 mg/dL mg/dL (0.15-1.2) AST 14 U/L U/L (0-40) ALT 15 U/L U/L (0-41) Alkaline Phosphata se 120 IU/L IU/L (40-130) Troponin T Baselin e Troponin T 120 Min [place] Troponin T Total Protein 6.1 g/dL L g/dL (6.6-8.7) Albumin 4.1 g/dL g/dL (3.5-5.2) Globulin 2.0 g/dL g/dL (1.3-4.6) Urine Color Yellow (Yellow) Urine Appearance Clear (CLEAR) Urine pH 5 (5-7) Ur Specific Gravit y 1.020 (1.005-1.030) Urine Protein Neg (Negative) Urine Glucose (UA) 4+ H (Normal) Urine Ketones Negative (Negative) Urine Blood Neg (Negative) Urine Nitrate Negative (Negative) Urine Bilirubin Neg (Negative) Urine Urobilinogen Norm mg/dL mg/dL (Negative) Ur Leukocyte Love ase Negative (Negative) 03/29/21 03/29/21 17:25 19:28 WBC RBC Hgb Hct MCV MCH MCHC RDW Plt Count MPV Neut % (Auto) Lymph % (Auto) [place] % (Auto) Eos % (Auto) Baso % (Auto) Neut # (Auto) Lymph # (Auto) [place] # (Auto) Eos # (Auto) Baso # (Auto) Nucleated RBC % (a uto) Nucleated RBCs # Sodium Potassium Chloride Carbon Dioxide Anion Gap BUN Creatinine GFR Calculation Glucose Calculated Osmolal ity Calcium Magnesium Total Bilirubin AST ALT Alkaline Phosphata se Troponin T Baselin e 15 ng/L ng/L (0-15) Troponin T 120 Min [place] 15.02 ng/L H ng/L (0-15) Delta Troponin T 0.02 ABS# ABS# (0-10) Total Protein Albumin Globulin Urine Color Urine Appearance Urine pH Ur Specific Gravit y Urine Protein Urine Glucose (UA) Urine Ketones Urine Blood Urine Nitrate Urine Bilirubin Urine Urobilinogen Ur Leukocyte Love ase Discharge Plan Discharge Patient Disposition: Placed in Observation Clinical Impression: CAD (coronary artery disease) Chest pain Qualifiers: Chest pain type: precordial pain Qualified Code(s): R07.2 - Precordial pain Coding Level of Care Code ED Microbiology Analyst for [facility] Fwd Exam Comprehensive
[2021-03-29 16:33] LABS: Add Urine Microscopic? NO; Charge for UA Resulting for Rev
[2021-03-29 16:39] LABS: Urine Appearance Clear (CLEAR); Urine Color Yellow (Yellow); pH Urine 5 (5-7)
[2021-03-29 16:40] LABS: Bilirubin Urine Neg (Negative); Blood Urine Neg (Negative); Glucose Urine UA 4+ (Normal); Ketones Urine Negative (Negative); Leukocyte Esterase Urine Negative (Negative); Nitrate Urine Negative (Negative); Protein Urine Neg (Negative); Urobilinogen Urine Norm (Negative)
[2021-03-29] MEDS: nitroglycerin 0.4 mg sublingual Tablet SUBLINGUAL ×2 (16:59→17:25)
[2021-03-29 17:34] LABS: Basophils % 0.1 %; Eosinophils # 0.1 10^3/uL (0.0-0.8); Eosinophils % 1.1 %; Hematocrit 43.2 % (42.0-52.0); Hemoglobin 14.4 g/dL (11.7-16.6); Lymphocytes # 1.3 10^3/uL (0.8-4.8); Lymphocytes % 16.5 %; Mean Corpuscular HGB Conc 33.3 g/dL (30.0-36.0); Mean Corpuscular Volume 99.1 fl (80-94); Mean Platelet Volume 10.1 fL (7.4-10.4); Monocytes # 0.5 10^3/uL (0.2-0.9); Monocytes % 6.2 %; Neutrophils # 5.99 10^3/uL (1.8-7.7); Neutrophils % 75.8 %; Nucleated Red Blood Cells % 0 %; Platelet Count 184 10^3/cmm (130-400); Red Blood Count 4.36 10^6/uL (4.1-5.3); Red Cell Distribution Width 12.4 % (12.1-15.1); White Blood Count 7.9 10^3/uL (4.0-10.0)
--- NOTE | 2021-03-29 17:45 | ECG_ITS ---
[facility] Test Date: 2021-03-29 Pat Name: Clinton Duran Department: Room: Gender: Male Devops Solutions Architect: : 1940 Requested By: Davina Almeida Order Number: [id number] Reading MD: ELIZABETH GALINDO Measurements Intervals [place] Rate: 67 P: 55 VA: 235 QRS: -3 QRSD: 97 T: 30 QT: 395 QTc: 420 Interpretive Statements SINUS RHYTHM WITH FIRST DEGREE AV BLOCK Compared to ECG 03/29/2021 15:32:27 First degree AV block now present Electronically Signed On 03-30-2021 12:58:06 AUTOMOTIVE PAINTER HELPER by ELIZABETH GALINDO [id number]
[2021-03-29 17:59] LABS: Alanine Aminotransferase 15 U/L (0-41); Albumin Level 4.1 g/dL (3.5-5.2); Alkaline Phosphatase 120 IU/L (40-130); Anion Gap 17.3 (5-19); Aspartate Amino Transferase 14 U/L (0-40); Blood Urea Nitrogen 16 mg/dL (8-23); Calcium 8.5 mg/dL (8.5-10.5); Carbon Dioxide 22 mmol/L (22-29); Chloride 99 mmol/L (98-107); Glucose 381 mg/dL (65-115); Osmolality Calculated 295 mOsm/kg (285-295); Potassium 4.3 mmol/L (3.5-5.1); Sodium 134 mmol/L (136-145); Total Bilirubin 0.3 mg/dL (0.15-1.2); Total Protein 6.1 g/dL (6.6-8.7)
[2021-03-29 18:03] LABS: Troponin(5th) Baseline 15 ng/L (0-15)
[2021-03-29 20:09] LABS: Troponin 5 2HR 15.02 ng/L (0-15); Troponin 5 2HR Delta 0.02 ABS# (0-10)
--- NOTE | 2021-03-29 21:45 | ECG_ITS ---
[facility] Test Date: 2021-03-29 Pat Name: Clinton Duran Department: Room: Gender: Male Imcu Specialist: : 1940 Requested By: Davina Almeida Order Number: [id number] Reading MD: ELIZABETH GALINDO Measurements Intervals [place] Rate: 70 P: 75 SC: 214 QRS: -21 QRSD: 97 T: 23 QT: 398 QTc: 430 Interpretive Statements SINUS RHYTHM WITH FIRST DEGREE AV BLOCK Compared to ECG 03/29/2021 18:14:21 No significant changes Electronically Signed On 03-30-2021 12:57:45 SAUSAGE WRAPPER by ELIZABETH GALINDO [id number]
[2021-03-29] MEDS: lidocaine 2% viscous 15 ML, aluminum-mag hydrox-simethicon 30 ML, sucralfate oral liq 1 GM PO (21:59)
--- NOTE | 2021-03-29 23:05 | PM.HP ---
Providers/Chief Complaint Primary Care Provider: Porter Mirza Chief Complaint: CHEST PAIN, LEADING DOWN ARM History of Present Illness 80 year old with past medical history of hypertension, hyperlipidemia, diabetes mellitus, chronic kidney disease and coronary artery disease with hx of PCI/Carlos to mLcx on10/2019 who presented to ER with left sided chest pain. Patient stated this has been ongoing intermittently for the past few days. Excerbated with any type of exertion. Radiating to left upper extremity. Resolved with SL NGT. Upon arrival to emergency room she has had laboratory workup showed a WBC of 7.9, hemoglobin 14.4, hematocrit of 43.2 and platelet count of 184. Sodium 134, potassium 4.3, chloride 99, bicarb 22, BUN 16 and creatinine of 1.1. Glucose was elevated 381. Troponin T 15 -> 15.02 -> 13.7. EKG did not show any evidence of acute ischemia.Emergency room patient was given sublingual nitroglycerin, aspirin 325 mg p.o. x1 and GI cocktail. Review of Systems General: Reports: 10 or more systems reviewed and unremarkable except in HPI and below Medications/Allergies Home Medications Medication Instructions Recorded Confirmed Last Taken Type alprazolam 0.25 mg tablet 0.125 mg PO BID tab 07/04/19 12/26/19 Unknown History clopidogrel 75 mg tablet 75 mg PO DAILY 07/04/19 12/26/19 Unknown History nitroglycerin 0.4 mg sublingual 0.4 mg SUBLINGUAL Q5M PRN 07/04/19 12/26/19 Unknown History tablet amlodipine 5 mg tablet 5 mg PO DAILY #30 tab 12/27/19 12/28/19 Unknown Rx baclofen 10 mg tablet 5 mg PO .bedtime tab 10/27/20 Unknown History insulin degludec 100 unit/mL (3 20 unit SUBCUT DAILY ml 10/27/20 Unknown History mL) subcutaneous pen Allergies Allergy/AdvReac Type Severity Reaction Status Date / Time lisinopril AdvReac Mild Rashes and Verified 10/27/20 07:55 Dizziness PFSH Acute PFSH: Medical History Abnormal stress test Atherosclerotic heart disease of [place] coronary artery with other forms of angina pectoris EKG revealed on 12/26/2019 revealed a sinus rhythm with a normal ST-T's. No evidence of pericarditis or ischemia. CAD (coronary artery disease) Status post drug-eluting stent placement to mid circumflex and balloon angioplasty of jailed first obtuse marginal. Continue dual antiplatelet therapy and low-dose Crestor. Chest pain Diabetes Dizziness Hyperlipidemia Hypertension Well-controlled. Continue current medications. Osteoarthritis Renal insufficiency TIA (transient ischemic attack) Surgical History H/O hernia repair H/O vein stripping History of back surgery Stented coronary artery Family History Brother Cancer Chronic kidney disease (CKD) Diabetes Mother Diabetes Father Diabetes Sister Diabetes Denies family history of CAD (coronary artery disease) Clotting disorder Dementia Suicide Anesthesia complication Bleeding disorder Lung disease Stroke Social History Smoking and tobacco status: never smoked Alcohol intake: never Vitals/I&O/Wt Last Vital Signs Temp 97.3 F L 03/29/21 15:33 Pulse 69 03/29/21 22:18 Resp 18 03/29/21 22:18 BP 152/78 03/29/21 22:18 Pulse Ox 98 03/29/21 22:18 Weight last 48 hrs Weight 83.915 kg Physical Exam Narrative: EXAM NARRATIVE: General: Alert, Awake, NAD HEENT : Grossly unremarkable CVS; RRR Chest : CTABL Abd: Soft,NT,ND Ext: No edema Data : 03/29/21 17:25 03/29/21 17:25 A&P Assessment and plan (1) Chest pain: Status: Acute Qualifiers: Chest pain type: precordial pain Qualified Code(s): R07.2 - Precordial pain (2) Hyperlipidemia: Status: Acute Qualifiers: Hyperlipidemia type: mixed hyperlipidemia Qualified Code(s): E78.2 - Mixed hyperlipidemia (3) CAD (coronary artery disease): Status: Acute (4) Hypertension: Status: Acute Qualifiers: Hypertension type: essential hypertension Qualified Code(s): I10 - Essential (primary) hypertension (5) Diabetes: Status: Acute Qualifiers: Diabetes mellitus type: type 2 Diabetes mellitus penitentiary insulin use: without penitentiary use Diabetes mellitus complication status: with hyperglycemia Qualified Code(s): E11.65 - Type 2 diabetes mellitus with hyperglycemia Additional A&P Information Chest pain hx of CAD s/p PCI/CARLOS to mLCx ACS ruled out Troponin trend negative Monitor on telemetry Aspirin 325 mg PO x 1 in ER Plavix 75 mg PO daily restarted Noted to have statin intolerance ? - noted weakness NPO at midnight Lexiscan in am PRN SL ngt GERD Protonix 40 mg PO daily GI cocktail in ER DVT ppx Lovenox 40 mg SQ daily Additional Medical Problems Hypertension Hyperlipidemia Diabetes Mellitus Chronic stage 2 kidney disease Attestations Medical Necessity Statement*: Anticipate less than 2 midnight stay in hospital for evaluation treatment Time Spent in Patient Care: Greater than 35 minutes (>than 50% of time spent in counselling and/or direct pt care on unit). Coding Level of Care Code Acute Staff Services Manager for Dawn [employer] Diagnoses Chest pain R07.2 Chest pain type: precordial pain Hyperlipidemia E78.2 Hyperlipidemia type: mixed hyperlipidemia CAD (coronary artery disease) I25.10 Hypertension I10 Hypertension type: essential hypertension Diabetes E11.65 Diabetes mellitus type: type 2 Diabetes mellitus penitentiary insulin use: without penitentiary use Diabetes mellitus complication status: with hyperglycemia
[2021-03-29] MEDS: enoxaparin 40 mg/0.4 mL Syringe SUBCUT (23:55)
[2021-03-29 23:56] LABS: Glucose Point of Care 372 mg/dL (70-110)
[2021-03-29 23:56] LABS: Troponin 5 6HR 13.79 ng/L (0-15)
[2021-03-30] LABS: Troponin 5 6HR Delta -1.21 ng/L (0-12)
[2021-03-30 02:05] VITALS: BP 163/97; PULSE 73; RESP 18; O2SAT 99
[2021-03-30] MEDS: acetaminophen 325 mg Tablet 650 MG PO ×2 (02:14→23:12)
--- NOTE | 2021-03-30 02:29 | PC.NURSE ---
0214 Pt complaint of headache. Tylenol given.
--- NOTE | 2021-03-30 06:10 | PC.NURSE ---
Spoke with Michelle DOMÍNGUEZ. Pt to go for stress test this a.m.
--- NOTE | 2021-03-30 06:30 | ECG_ITS ---
[facility] Test Date: 2021-03-30 Pat Name: Clinton Duran Department: Room: EDIP Gender: Male Early Childhood Educator Aide: Myesha White : 1940 Requested By: Allen Fernandez Order Number: [id number] Hedy MD: Robyn Rehman M.D. Interpretive Statements NAME OF STUDY: LEXISCAN SESTAMIBI STRESS TEST INDICATION: Chest Pain PROCEDURE: At the baseline, the blood pressure was 163/84 mmHg with a heart rate of 62 bpm. The electrocardiogram showed normal sinus rhythm with frequent PACs. Normal axis. Normal ST and T wave changes. The Lexiscan was infused over a period of 20 seconds. A total of 0.4 milligrams of Lexiscan was infused. The stress phase was continued for a total of 5 minutes. Heart rate at the end of the stress phase was 85 bpm with a blood pressure of 146/81 mmHg. The EKG at the peak infusion revealed sinus rhythm with no significant ST-T wave changes. The study was terminated due to protocol completion. Sestamibi was injected 20 seconds after the Lexiscan infusion. Blood pressure at the end of the recovery phase was 146/81 mmHg with a heart rate of 84 beats per minute. CONCLUSION: 1. No significant EKG changes with the LexiScan infusion. 2. No LexiScan induced chest pain or cardiac arrhythmia. 3. Normal blood pressure and heart rate response. 4. Sestamibi/sestamibi perfusion scan pending; see separate report. Electronically Signed On 03-30-2021 13:50:06 VEGETABLE FARMING SUPERVISOR by Robyn Rehman M.D. [id number]
[2021-03-30 06:40] LABS: Basophils % 0.4 %; Eosinophils # 0.1 10^3/uL (0.0-0.8); Eosinophils % 2.3 %; Hematocrit 40.7 % (42.0-52.0); Hemoglobin 13.5 g/dL (11.7-16.6); Lymphocytes # 1.4 10^3/uL (0.8-4.8); Lymphocytes % 24.1 %; Mean Corpuscular HGB Conc 33.2 g/dL (30.0-36.0); Mean Corpuscular Hemoglobin 32.8 pg (28.0-34.0); Mean Platelet Volume 10.1 fL (7.4-10.4); Monocytes # 0.5 10^3/uL (0.2-0.9); Monocytes % 8.5 %; Neutrophils # 3.67 10^3/uL (1.8-7.7); Neutrophils % 64.5 %; Nucleated Red Blood Cells % 0 %; Platelet Count 159 10^3/cmm (130-400); Red Blood Count 4.11 10^6/uL (4.1-5.3); Red Cell Distribution Width 12.4 % (12.1-15.1); White Blood Count 5.7 10^3/uL (4.0-10.0)
[2021-03-30 07:05] LABS: Alanine Aminotransferase 13 U/L (0-41); Albumin Level 3.6 g/dL (3.5-5.2); Alkaline Phosphatase 107 IU/L (40-130); Anion Gap 14.1 (5-19); Aspartate Amino Transferase 13 U/L (0-40); Carbon Dioxide 23 mmol/L (22-29); Chloride 105 mmol/L (98-107); Globulin 1.9 g/dL (1.3-4.6); Potassium 4.1 mmol/L (3.5-5.1); Sodium 138 mmol/L (136-145)
[2021-03-30 07:12] LABS: Blood Urea Nitrogen 14 mg/dL (8-23); Calcium 8.2 mg/dL (8.5-10.5); Creatinine Clr Calc Pharmacy 77.9033; Glucose 178 mg/dL (65-115); Osmolality Calculated 289 mOsm/kg (285-295); Total Bilirubin 0.4 mg/dL (0.15-1.2); Total Protein 5.6 g/dL (6.6-8.7)
--- NOTE | 2021-03-30 08:33 | PC.NURSE ---
Intermittent pneumatic compression not available in the ER.
--- NOTE | 2021-03-30 08:36 | PC.NURSE ---
Attempted to call central scheduling to inquire about stress test. Placed on hold for 15 minutes, no answer by staff.
[2021-03-30 08:37] LABS: Glucose Point of Care 154 mg/dL (70-110)
[2021-03-30 08:44] VITALS: BP 157/81; PULSE 67; RESP 18; O2SAT 99
--- NOTE | 2021-03-30 08:53 | PC.NURSE ---
Spoke to the supervisor labor gang. They estimate that pt will go for the stress test sometime between 1-2pm. Pt notified. States he's upset about the wait. This RN apologizes for the wait but explains the importance of the stress test. Pt verbalizes understanding.
--- NOTE | 2021-03-30 12:16 | PM.CONSULT ---
Providers/Reason For Consult Consulting Physician/Specialty*: Dr. Rehman, cardiology Reason for Consult*: Exertional chest discomfort, history of coronary artery disease Attending Physician: Oz Dow MD Primary Care Provider: Porter Mirza History of Present Illness History of Present Illness Clinton Duran is a 80 year old male with past medical history of coronary artery disease s/p mid LAD stent in 2015, TIFFANY placement to mid circumflex and balloon angioplasty of jailed first obtuse marginal in 09/2018, hypertension, hyperlipidemia, insulin-dependent diabetes mellitus, intermittent chronic dizziness, osteoarthritis, history of TIA and renal insufficiency. He tells me that even after his stent in 10/2019 he has been having exertional chest and left arm pain. These symptoms have worsened in last 3 weeks. No fever, chills, edema, URI or UTi like symptoms. EKG with sinus rhythm, first degree AV block and non specific T wave changes. Troponin T x3 with no delta change. No chest pain at the time of symptoms. He took NTG Sl yesterday that helped him some and then presented to ER. Review of Systems General: Reports: 10 or more systems reviewed and unremarkable except in HPI and below Const: Denies: fever(s) or chills Card: Reports: chest pain and lightheadedness; Denies: irregular heart rhythm or swelling of feet/ankles Resp: Reports: dyspnea; Denies: productive cough GI: Denies: diarrhea or hematochezia : Denies: oliguria or hematuria Skin/Breast: Denies: rash Neuro: Reports: dizziness; Denies: headache(s) or frequent falls Psych: Denies: anxiety or depression Wyatt/Lymph: Denies: petechiae or purpura Meds/Allergies Home Medications and Allergies Home Medications Medication Instructions Recorded Confirmed Last Taken Type alprazolam 0.25 mg tablet 0.125 mg PO BID tab 07/04/19 03/30/21 Unknown History clopidogrel 75 mg tablet 75 mg PO BEDTIME 07/04/19 03/30/21 Unknown History nitroglycerin 0.4 mg sublingual 0.4 mg SUBLINGUAL Q5M PRN 07/04/19 03/30/21 Unknown History tablet Vitamin B-6 1 cap PO DAILY 03/30/21 03/30/21 Unknown History amlodipine 5 mg PO BEDTIME 03/30/21 03/30/21 Unknown History insulin degludec [Tresiba 22 unit SUBCUT DAILY@19 03/30/21 03/30/21 Unknown History FlexTouch U-200] lovastatin 20 mg PO BEDTIME 03/30/21 03/30/21 Unknown History Allergies Allergy/AdvReac Type Severity Reaction Status Date / Time lisinopril AdvReac Mild Rashes and Verified 03/30/21 08:10 Dizziness Current Medications Current Medications Generic Name Dose Route Start Last Admin Trade Name Freq PRN Reason Stop Dose Admin Acetaminophen 650 mg 03/29/21 23:01 03/30/21 02:14 Acetaminophen 325 Mg Tablet PO 650 mg Q6H PRN Administration Mild/Mod Pain Or Temp >/= 101 Enoxaparin Sodium 40 mg 03/29/21 23:15 03/29/21 23:55 Enoxaparin 40 Mg/0.4 Ml Syringe SUBCUT 40 mg Q24H SOLOMON Administration Nitroglycerin 0.4 mg 03/29/21 15:44 03/29/21 17:25 Nitroglycerin 0.4 Mg Sublingual Tablet SUBLINGUAL 1 tab Q5M PRN Administration CHEST PAIN PFSH Acute PFSH: Medical History Abnormal stress test Atherosclerotic heart disease of [place] coronary artery with other forms of angina pectoris EKG revealed on 12/26/2019 revealed a sinus rhythm with a normal ST-T's. No evidence of pericarditis or ischemia. CAD (coronary artery disease) Status post drug-eluting stent placement to mid circumflex and balloon angioplasty of jailed first obtuse marginal. Continue dual antiplatelet therapy and low-dose Crestor. Chest pain Diabetes Dizziness Hyperlipidemia Hypertension Well-controlled. Continue current medications. Osteoarthritis Renal insufficiency TIA (transient ischemic attack) Surgical History H/O hernia repair H/O vein stripping History of back surgery Stented coronary artery Family History Brother Cancer Chronic kidney disease (CKD) Diabetes Mother Diabetes Father Diabetes Sister Diabetes Denies family history of CAD (coronary artery disease) Clotting disorder Dementia Suicide Anesthesia complication Bleeding disorder Lung disease Stroke Social History Smoking and tobacco status: never smoked Alcohol intake: never Vitals/I&O/Wt Last Vital Signs Temp 97.3 F L 03/29/21 15:33 Pulse 67 03/30/21 08:44 Resp 18 03/30/21 08:44 BP 157/81 03/30/21 08:44 Pulse Ox 99 03/30/21 08:44 Weight last 48 hrs Weight 185 lb Physical Exam Narrative: EXAM NARRATIVE: GENERAL: Averagely built and averagely nourished in no acute distress HEENT: Pupils equal round reactive to light. No pallor or icterus. NECK: No JVD, . No carotid bruit. CARDIOVASCULAR SYSTEM: S1-S2 regular. No murmur or gallops. RESPIRATORY SYSTEM: Chest clear to auscultation. No wheezes rhonchi or rubs heard. [] No use of accessory muscles. ABDOMEN: Soft, nontender and nondistended. Normal bowel sounds present. EXTREMITIES: No cyanosis or clubbing. No edema. No signs of chronic venous insufficiency. SAP PAYROLL CONSULTANT: Patient is alert oriented ?3. No focal neurological deficits. Data Labs: Other Labs: Baseline troponin T 15 at 2 hours 15 and at 6 hours 14. TSH 2.8. Other Data: Other data: Chest x-ray Mar, IMPRESSION: Minimal left basilar costophrenic angle subsegmental consolidated alveolar airspace disease which could reflect atelectasis and/or pneumonia. [facility] 10/19/2019 Patient underwent left heart catheterization with left and right coronary angiogram and LV angiogram today. The findings are as follows. The stented segment of the LAD was patent. There was a high-grade lesion (80 to 90% tubular narrowing) in the distal LAD after the third diagonal branch. The distal left anterior descending artery was found to be a small caliber vessel . The first septal materials coordinator was found to have 80 to 90% diffuse narrowing proximally. There is a high-grade lesion of around 90% at the mid circumflex, soon after the takeoff of the first obtuse marginal branch. Mild diffuse disease in the other vessels. LV ejection fraction was 55%. LVEDP 15 mmHg. Mild hypokinesia of the LV apex. Mid Circumflex Coronary Artery was treated with two Balloon and Drug Eluting Stent. First Obtuse Marginal Branch Segment was treated with Balloon. CAROTID DUPLEX EXAMINATION 10/25/2018 Normal carotid doppler ultrasound. LEXISCAN SPECT CARDIAC STRESS TEST 09/04/2018 1. No significant EKG changes with the LexiScan infusion 2. No LexiScan induced chest pain or cardiac arrhythmia 3. Normal blood pressure and heart rate response #1. Myocardial perfusion imaging revealing a moderate area of moderately decreased persistent tracer uptake in the inferior wall and inferolateral regions with a subtle area of inconsistent reversibility in the mid inferior and inferolateral regions, suggestive of myocardial scarring with subtle area of ischemia in the distribution of the right coronary artery/circumflex artery. However because of the inconsistency, this could be artifactual. #2. Normal LV ejection fraction 86%. #3. LV wall motion analysis revealing no gross wall motion abnormalities. #4. Normal LV volume. ECHOCARDIOGRAPHY, COMPLETE 08/21/2018 Normal left ventricular size and systolic function, EF 73 %. Mild left ventricular hypertrophy. No regional wall motion abnormalities. Grade I/IV diastolic dysfunction (abnormal relaxation filling pattern), normal to mildly elevated filling pressures. Minimally thickened aortic and mitral valves. Mild left atrial enlargement Mild mitral annular calcification. Trace mitral and pulmonic valve regurgitation. There is no pericardial effusion. There are no intracardiac masses. No similar previous studies available for comparison HOLTER MONITORING WITH INTERPRETATION [10/10/2017]: 1. Baseline rhythm is sinus bradycardia to sinus tachycardia with first-degree AV block and sinus arrhythmia. Average heart rate of 77 bpm. 2. 0.02% of total beats were supraventricular ectopic and less than 0.01% of total beats were ventricular ectopic beats. 3. No significant pauses or bradycardias noted.No significant tachyarrhythmia. 4. No symptoms note A&P Assessment and plan (1) Chest pain: Stress test today with old IN with mild darrius-infarct ischemia in LCx artery territory. -continue DAPT, statin and amlodipine. -He did not tolerate 10 mg of amlodipine d/t leg swelling. -start on low dose imdur and monitor overnight. -May consider LHC if patient continues to be symptomatic. Status: Acute Qualifiers: Chest pain type: precordial pain Qualified Code(s): R07.2 - Precordial pain (2) CAD (coronary artery disease): s/p LAD and LCx stents, see above. Status: Acute (3) Hypertension: BP elevated in ER. Status: Acute Qualifiers: Hypertension type: essential hypertension Qualified Code(s): I10 - Essential (primary) hypertension (4) Diabetes: Status: Acute Qualifiers: Diabetes mellitus complication status: with hyperglycemia Diabetes mellitus mcfp insulin use: without regional intermodal truck driver use Diabetes mellitus type: type 2 Qualified Code(s): E11.65 - Type 2 diabetes mellitus with hyperglycemia Additional A&P Information Hyperlipidemia History of statin intolerance Chronic kidney disease Thank you for allowing me to participate in patient care. Please feel free to call with questions or concerns. Consult Attestations Medical Necessity Statement: Needs hospital stay for chest pain. Time Spent in Patient Care: 16 - 35 minutes (>than 50% of time spent in counselling and/or direct pt care on unit). Coding Level of Care Code Acute Bullet Slug Casting Machine Operator for Naseem Caterinad Diagnoses Chest pain R07.2 Chest pain type: precordial pain CAD (coronary artery disease) I25.10 Hypertension I10 Hypertension type: essential hypertension Diabetes E11.65 Diabetes mellitus complication status: with hyperglycemia Diabetes mellitus regional intermodal truck driver insulin use: without mcfp use Diabetes mellitus type: type 2
[2021-03-30] MEDS: regadenoson 0.4 Mg/5 ml Syringe IVP (12:33)
[2021-03-30 12:40] VITALS: BP 163/84; PULSE 86
[2021-03-30] MEDS: pantoprazole DR 40 mg Tablet PO (13:58)
[2021-03-30] MEDS: clopidogrel 75 mg Tablet PO (13:59)
--- NOTE | 2021-03-30 14:01 | PC.NURSE ---
Pt back from stress test at this time.
[2021-03-30 14:04] LABS: Glucose Point of Care 150 mg/dL (70-110)
--- NOTE | 2021-03-30 14:24 | PM.PN ---
Subjective Subjective: Interval history: History and physical reviewed. He reports progressive chest discomfort with radiation into his left arm worsening with exertion lately. He is always had some, even after his last angiogram with intervention. He denies any chest discomfort currently. Medications: Reviewed: Yes Vitals/I&O/Wt Last Vital Signs Temp 97.3 F L 03/29/21 15:33 Pulse 86 03/30/21 12:40 Resp 18 03/30/21 08:44 BP 163/84 03/30/21 12:40 Pulse Ox 99 03/30/21 08:44 Weight last 48 hrs Weight 83.915 kg Physical Exam Narrative: EXAM NARRATIVE: General exam no distress Neck is supple Cardiovascular regular rate and rhythm without murmur Lungs clear Abdomen is soft with positive bowel sounds Extremities no cyanosis clubbing or edema Data : 03/30/21 06:29 03/30/21 06:29 A&P Assessment and plan (1) Chest pain: Patient with increasing exertional symptoms of chest discomfort and left arm discomfort that go away with rest. Troponin with no significant delta Nuclear stress test ordered Continue Plavix, statin Add aspirin Unsure why he is not on beta-mayelin Check echocardiogram Check TSH Cardiology consultation Status: Acute Qualifiers: Chest pain type: precordial pain Qualified Code(s): R07.2 - Precordial pain (2) CAD (coronary artery disease): Most recent angiogram October 2019 demonstrated third diagonal narrowing of 85 to 90%, septal elevator repair mechanic 80 to 90%, circumflex ostial 90%. He received obtuse marginal and circumflex balloon. I believe drug-eluting stent was used on 1 of these vessels. Aspirin, statin, Plavix Status: Acute (3) Diabetes: Sliding scale insulin Consistent carb diet Status: Acute Qualifiers: Diabetes mellitus type: type 2 Diabetes mellitus senior living insulin use: without assistant terminal manager use Diabetes mellitus complication status: with hyperglycemia Qualified Code(s): E11.65 - Type 2 diabetes mellitus with hyperglycemia (4) Hypertension: Continue amlodipine Status: Acute Qualifiers: Hypertension type: essential hypertension Qualified Code(s): I10 - Essential (primary) hypertension Additional A&P Information Lovenox for DVT prophylaxis Attestations Medical Necessity Statement*: Needs continued hospitalization for delineation of chest discomfort with nuclear stress testing and cardiology consultation. Coding Level of Care Code Acute Mold Maker Apprentice for Dawn Ho Diagnoses Chest pain R07.2 Chest pain type: precordial pain CAD (coronary artery disease) I25.10 Diabetes E11.65 Diabetes mellitus type: type 2 Diabetes mellitus senior living insulin use: without assistant terminal manager use Diabetes mellitus complication status: with hyperglycemia Hypertension I10 Hypertension type: essential hypertension
--- NOTE | 2021-03-30 15:00 | PC.NURSE ---
Attempted to call report to Med Surg. Told that patient is not on the board and to call back.
--- NOTE | 2021-03-30 15:30 | PC.NURSE ---
Attempted to call report to Med Surg. Told room is not clean.
--- NOTE | 2021-03-30 15:50 | PC.NURSE ---
Attempted to call report to med surg. Phone rang with no answer for 4 minutes.
--- NOTE | 2021-03-30 16:10 | PC.NURSE ---
Attempted to call report to med surg. Staff state they will get RN. Placed on hold for 9 minutes with no answer. veterinary technologist aware of attempts.
[2021-03-30 17:29] LABS: Glucose Point of Care 252 mg/dL (70-110)
[2021-03-30 17:32] VITALS: BMI 26.5
[2021-03-30] MEDS: insulin lispro 100 unit/1 mL SUBCUT ×2 (19:02→20:16)
[2021-03-30] MEDS: isosorbide mononitrate ER 30 mg Tablet 15 MG PO (19:02)
[2021-03-30 20:00] VITALS: BP 151/79; PULSE 68; RESP 17; TEMP 36.6; O2SAT 98
[2021-03-30] MEDS: atorvastatin 40 mg Tablet 20 MG PO (20:16)
[2021-03-30] MEDS: amlodipine 5 mg Tablet PO (20:16)
[2021-03-30 21:16] LABS: Glucose Point of Care 233 mg/dL (70-110)
--- NOTE | 2021-03-30 23:03 | NMCV_ITS ---
NM [place] perf SPECT r/s* [id number] Clinton Duran Age: 80 Gender: M : 1940 Exam Date: 03/30/2021 23:03 Ordering Phys: Allen Fernandez MD Technologist: BETH Herrera Exam Location: [facility] Indications: CHEST PAIN STRESS TEST Please see separate stress test report in [facility] for full findings IMAGE PROTOCOL Rest/Stress 1 Lexiscan Day Radiopharmaceutical Dose (mCi) Administration Site Administered by Rest: Tc-99m 11.0 IV BETH Herrera Sestamibi Stress:Tc-99m 33.0 IV BETH Colón Sestamibi Rest: 30-Mar-2021 60 Discovery 630 Stress: 30-Mar-2021 30 Discovery 630 0.4mg Lexiscan. Images obtained in supine and prone position. SPECT RESULTS Technical Quality: Excellent Raw Data Analysis: Normal Image Corrections: No attenuation or motion correction applied Summed Stress Score: 4 Summed Rest Score: 4 Summed Difference Score: 1 PERFUSION FINDINGS Small sized perfusion abnormality of mild severity of basal to mid inferior hodges with subtle reversibility in apical lateral wall. FUNCTIONAL RESULTS (calculated via Gated SPECT) Stress Image LV EF (%): 74 Stress EDV (mL):61 TID: 1.13 Stress ESV (mL):16 FUNCTIONAL FINDINGS: The left ventricle is normal in size. Transient Ischemia Dilatation of 1.1. The left ventricular ejection fraction is normal with a value of 74%. There is normal left ventricular wall thickening with no regional wall motion abnormality. Normal end-diastolic and end-systolic volumes. IMPRESSIONS 1. Small sized perfusion abnormality of mild severity of basal to mid inferior hodges with subtle reversibility in mid to apical lateral wall. 2. This is suggestive of old myocardial infarction with mild darrius-infarct ischemia in circumflex artery territory. 3. Overall left ventricular systolic function is normal without regional wall motion abnormalities, LVEF=74%. 4. No significant EKG changes with Lexiscan infusion. Please refer to separate report for details. Robyn Rehman MD (Electronically Signed) Final Date: 30 March 2021 16:48 S
[2021-03-30] MEDS: enoxaparin 40 mg/0.4 mL Syringe SUBCUT (23:12)
[2021-03-31] VITALS: BP 121/65; PULSE 95; RESP 17; TEMP 36.6; O2SAT 97
[2021-03-31 04:00] VITALS: BP 116/61; PULSE 90; RESP 17; TEMP 36.6; O2SAT 95
[2021-03-31 06:45] LABS: Glucose Point of Care 145 mg/dL (70-110)
[2021-03-31 06:54] LABS: Basophils % 0.2 %; Eosinophils # 0.1 10^3/uL (0.0-0.8); Eosinophils % 1.2 %; Hematocrit 40.1 % (42.0-52.0); Hemoglobin 13.5 g/dL (11.7-16.6); Lymphocytes # 1.6 10^3/uL (0.8-4.8); Lymphocytes % 17.1 %; Mean Corpuscular HGB Conc 33.7 g/dL (30.0-36.0); Mean Corpuscular Hemoglobin 33.3 pg (28.0-34.0); Mean Corpuscular Volume 98.8 fl (80-94); Mean Platelet Volume 10.4 fL (7.4-10.4); Monocytes # 0.6 10^3/uL (0.2-0.9); Monocytes % 6.3 %; Neutrophils # 7.03 10^3/uL (1.8-7.7); Neutrophils % 74.8 %; Nucleated Red Blood Cells % 0 %; Platelet Count 176 10^3/cmm (130-400); Red Blood Count 4.06 10^6/uL (4.1-5.3); Red Cell Distribution Width 12.4 % (12.1-15.1); White Blood Count 9.4 10^3/uL (4.0-10.0)
[2021-03-31 07:19] LABS: Alanine Aminotransferase 13 U/L (0-41); Albumin Level 3.8 g/dL (3.5-5.2); Alkaline Phosphatase 86 IU/L (40-130); Anion Gap 17.3 (5-19); Aspartate Amino Transferase 12 U/L (0-40); Blood Urea Nitrogen 19 mg/dL (8-23); Carbon Dioxide 20 mmol/L (22-29); Chloride 105 mmol/L (98-107); Globulin 1.7 g/dL (1.3-4.6); Glucose 133 mg/dL (65-115); Osmolality Calculated 290 mOsm/kg (285-295); Potassium 4.3 mmol/L (3.5-5.1); Sodium 138 mmol/L (136-145); Total Bilirubin 0.6 mg/dL (0.15-1.2); Total Protein 5.5 g/dL (6.6-8.7)
[2021-03-31 07:39] VITALS: BP 116/64; PULSE 65; RESP 18; TEMP 36.5; O2SAT 96
[2021-03-31] MEDS: insulin lispro 100 unit/1 mL SUBCUT (07:45)
[2021-03-31] MEDS: aspirin 81 mg EC Tablet PO (07:46)
[2021-03-31] MEDS: isosorbide mononitrate ER 30 mg Tablet 15 MG PO (07:46)
[2021-03-31] MEDS: pantoprazole DR 40 mg Tablet PO (07:46)
[2021-03-31] MEDS: clopidogrel 75 mg Tablet PO (07:46)
--- NOTE | 2021-03-31 09:56 | P.PN_ITS ---
Subjective Subjective: Interval history: He feels well and denies any chest pain overnight or with ambulation. Medications: Reviewed: Yes Vitals/I&O/Wt Last Vital Signs Temp 97.7 F 03/31/21 07:39 Pulse 65 03/31/21 07:39 Resp 18 03/31/21 07:39 BP 116/64 03/31/21 07:39 Pulse Ox 96 03/31/21 07:39 03/30/21 03/31/21 03/31/21 22:59 06:59 14:59 Intake Total 480 / 480 180 / 660 360 / 360 Balance 480 / 480 180 / 660 360 / 360 Weight last 48 hrs Weight 185 lb Weight 185 lb Physical Exam Narrative: EXAM NARRATIVE: GENERAL: Averagely built and averagely nourished in no acute distress HEENT: Pupils equal round reactive to light. No pallor or icterus. NECK: No JVD, . No carotid bruit. CARDIOVASCULAR SYSTEM: S1-S2 regular. No murmur or gallops. RESPIRATORY SYSTEM: Chest clear to auscultation. No wheezes rhonchi or rubs heard. [] No use of accessory muscles. ABDOMEN: Soft, nontender and nondistended. Normal bowel sounds present. EXTREMITIES: No cyanosis or clubbing. No edema. No signs of chronic venous insufficiency. RESIDENTIAL MANAGER: Patient is alert oriented ?3. No focal neurological deficits. Data : 03/31/21 04:59 03/31/21 04:59 A&P Assessment and plan (1) Chest pain: Stress test today with old MD with mild darrius-infarct ischemia in LCx artery territory. -continue DAPT, statin and amlodipine. -He did not tolerate 10 mg of amlodipine d/t leg swelling. -started on low dose imdur. tolerating imdue fine so far w/o side effects. -stable to be discharged on imdur 15 mg and NTG SL PRN -advised to track BP/HR at least twice a day till his office follow up. -f/u with Dr. Soto in [facility] in 2-3 weeks Status: Acute Qualifiers: Chest pain type: precordial pain Qualified Code(s): R07.2 - Precordial pain (2) CAD (coronary artery disease): s/p LAD and LCx stents, see above. Status: Acute (3) Hypertension: BP elevated in ER. well controlled now. Status: Acute Qualifiers: Hypertension type: essential hypertension Qualified Code(s): I10 - Essential (primary) hypertension (4) Diabetes: Status: Acute Qualifiers: Diabetes mellitus type: type 2 Diabetes mellitus prison insulin use: without prison use Diabetes mellitus complication status: with hyperglycemia Qualified Code(s): E11.65 - Type 2 diabetes mellitus with hyperglycemia Additional A&P Information Hyperlipidemia History of statin intolerance Chronic kidney disease Thank you for allowing me to participate in patient care. Please feel free to call with questions or concerns. Attestations Medical Necessity Statement*: stable to be discharged Time Spent in Patient Care: 16 - 35 minutes (>than 50% of time spent in counselling and/or direct pt care on unit) . Coding Level of Care Code Acute Sous Chef for Dawn Ho Diagnoses Chest pain R07.2 Chest pain type: precordial pain CAD (coronary artery disease) I25.10 Hypertension I10 Hypertension type: essential hypertension Diabetes E11.65 Diabetes mellitus type: type 2 Diabetes mellitus intermediate card tender insulin use: without intermediate card tender use Diabetes mellitus complication status: with hyperglycemia
--- NOTE | 2021-03-31 10:00 | P.DS_ITS ---
Discharge Providers Date of Admission: 03/30/21 15:00 Date of Discharge: March 31, 2021 Attending Provider at Admission: Allen Fernandez Attending Provider at Discharge: Oz Dow MD Primary Care Provider: Porter Mirza Diagnoses at Discharge Discharge Diagnosis (1) Chest pain: Status: Acute Qualifiers: Chest pain type: precordial pain Qualified Code(s): R07.2 - Precordial pain (2) CAD (coronary artery disease): Status: Acute Permanent problem details: Status post drug-eluting stent placement to mid circumflex and balloon angioplasty of jailed first obtuse marginal. Continue dual antiplatelet therapy and low-dose Crestor. (3) Hypertension: Status: Acute Permanent problem details: Well-controlled. Continue current medications. Qualifiers: Hypertension type: essential hypertension Qualified Code(s): I10 - Essential (primary) hypertension (4) Diabetes: Status: Acute Qualifiers: Diabetes mellitus type: type 2 Diabetes mellitus mcc insulin use: without mcc use Diabetes mellitus complication status: with hyperglycemia Qualified Code(s): E11.65 - Type 2 diabetes mellitus with hyperglycemia Reason for Visit Reason for Visit: CHEST PAIN, LEADING DOWN ARM Hospital Course Hospital Course Clinton is an 80-year-old white male who presented to the emergency department with complaints of chest discomfort radiating down into his left arm from his left chest with exertion. He reported he had some of this present since his last angiogram but it had worsened lately. EKG was nondiagnostic. Troponin had no significant delta. He was placed in the hospital and a nuclear stress test was ordered. Cardiology was consulted. Nuclear stress test demonstrated small sized perfusion abnormality with subtle reversibility mid to apical lateral wall. This was suggestive of old myocardial infarction with some mild darrius- infarct ischemia. Cardiology visited with the patient, adjusted medications by adding low-dose Imdur. Patient tolerated this well, was able to ambulate around the hospital floor without any recurrent chest discomfort. 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 He is to return for any severe return of discomfort. He will continue his statin and Plavix. Aspirin was added to his regimen. Physical Exam Narrative: EXAM NARRATIVE: General exam no distress Neck supple Cardiovascular regular rate and rhythm without murmur Lungs clear Abdomen is soft with positive bowel sounds Extremities no cyanosis clubbing or edema Discharge Data Data Completed and Pending: Completed Studies During Hospitalization Category Date Time Status Cardiac Stress Te st MIBI [Sestamibi Stress Test Reque st Exams 03/30/21 06:30 Completed ] Routine XR chest 1V tara ble [id number] Stat Exams 03/29/21 15:44 Completed NM [place] perf SPECT r/s* [id number] Routin e Nuc Med 03/30/21 23:03 Completed Pending at discharge Category Date Time Status Sestamibi Stress Test Request Routi ne Exams 03/29/21 23:03 Ordered CV. echo complete * [id number] Routine Ultrasound 03/31/21 06:00 Stop Req Labs from last 24 hours 03/31/21 03/31/21 03/31/21 06:37 04:59 04:59 WBC 9.4 RBC 4.06 L Hgb 13.5 Hct 40.1 L MCV 98.8 H MCH 33.3 MCHC 33.7 RDW 12.4 Plt Count 176 MPV 10.4 Neut % (Auto) 74.8 Lymph % (Auto) 17.1 Meade % (Auto) 6.3 Eos % (Auto) 1.2 Baso % (Auto) 0.2 Neut # (Auto) 7.03 Lymph # (Auto) 1.6 Meade # (Auto) 0.6 Eos # (Auto) 0.1 Baso # (Auto) 0.0 Nucleated RBC % (a uto) 0 Nucleated RBCs # 0.0 Sodium 138 Potassium 4.3 Chloride 105 Carbon Dioxide 20 L Anion Gap 17.3 BUN 19 Creatinine 0.9 GFR Calculation Not Reportable Glucose 133 H POC Glucose 145 H Calculated Osmolal ity 290 Calcium 8.0 L Total Bilirubin 0.6 AST 12 ALT 13 Alkaline Phosphata se 86 Total Protein 5.5 L Albumin 3.8 Globulin 1.7 03/30/21 03/30/21 03/30/21 21:08 17:23 14:00 WBC RBC Hgb Hct MCV MCH MCHC RDW Plt Count MPV Neut % (Auto) Lymph % (Auto) Meade % (Auto) Eos % (Auto) Baso % (Auto) Neut # (Auto) Lymph # (Auto) Meade # (Auto) Eos # (Auto) Baso # (Auto) Nucleated RBC % (a uto) Nucleated RBCs # Sodium Potassium Chloride Carbon Dioxide Anion Gap BUN Creatinine GFR Calculation Glucose POC Glucose 233 H 252 H 150 H Calculated Osmolal ity Calcium Total Bilirubin AST ALT Alkaline Phosphata se Total Protein Albumin Globulin Vitals: Last Vital Signs Temp 97.7 F 03/31/21 07:39 Pulse 65 03/31/21 07:39 Resp 18 03/31/21 07:39 BP 116/64 03/31/21 07:39 Pulse Ox 96 03/31/21 07:39 Discharge Plan Discharge Patient Disposition: Home Condition: Stable Prescriptions: New pantoprazole 40 mg Tablet,Delayed Release (Dr/Ec) 40 mg PO DAILY Qty: 30 RF: 0 aspirin 81 mg Tablet,Delayed Release (Dr/Ec) 81 mg PO DAILY Qty: 30 RF: 0 isosorbide mononitrate 30 mg Tablet Extended Release 24 Hr 15 mg PO DAILY Qty: 15 RF: 0 Continued clopidogrel 75 mg tablet 75 mg PO BEDTIME RF: 0 alprazolam 0.25 mg tablet 0.125 mg PO BID RF: 0 amlodipine 5 mg tablet 5 mg PO BEDTIME RF: 0 lovastatin 20 mg tablet 20 mg PO BEDTIME RF: 0 Tresiba FlexTouch U-200 200 unit/mL (3 mL) insulin pen 22 unit SUBCUT DAILY@19 RF: 0 Vitamin B-6 1 cap PO DAILY RF: 0 nitroglycerin [Nitrostat] 0.4 mg tablet, sublingual 0.4 mg SUBLINGUAL Q5M PRN (Reason: Chest Pain) Qty: 30 RF: 2 Discharge Orders: Discharge Order (Routine); Ordered 03/31/21 Ordered By: Oz Dow Referrals: Porter Mirza [Primary Care Provider] - 4-7 days Tyra Soto MD [Physician] - 7-10 days Discharge Diet: Cardiac and Diabetic Discharge Activity: Increase activity as tolerated Patient Instructions: Opioid Safety Activity Restrictions/Additional Instructions: Return for any persistent chest discomfort, worsening chest discomfort. Follow- up with your primary care provider 3 to 5 days. Follow-up with cardiology 7 to 10 days. 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
--- NOTE | 2021-03-31 10:04 | PC.CHAP ---
Pastoral Care Encounter/Spiritual Assessment Type of Contact [] Declined oracle manager visit [] Patient/Family/Request visit [] Outpatient visit [] Follow-up visit [] Physician referral [] Code/Alert [x] Routine visit [] Staff referral [] Actively dying [] Patient sleeping [] Family support [] [] Out of room [] Palliative care [] [] Receiving care in room [] Pre-surgical visit [] Trauma [] Long length of stay [] ICU visit [] Other: Relational/Emotional Strength [x] Patient feels connected with others/family/visitors/staff [] Distress [] Loneliness/isolation [] Abandonment Spirituality of Patient [x] Person of Wendy [] Attends Congregation of their Wendy [x] Believes in Prayer [] Reads Bible or Shinto materials [] There are Spiritual issues to be addressed Exceptional Student Education Aide Interventions [x] Prayer [x] Active listening [x] Non-anxious presence [x] Spiritual/emotional support [] Crisis/trauma care [] Spiritual counseling [] Bereavement support [] Provided bereavement packet [] Provided Bible/devotional materials [] Provided toy/stuffed animal, coloring book to patient or family member [] Provided Communion [] Anointing/[place] [] Salvation [x] Completed spiritual assessment [] Other: Impact on Illness or Injury [] Angry [] Fearful [] Anxious [] Often cries [] Exhaustion [] Unable to work [] Unable to attend tenriism [] Unable to walk/stand [] Unable to read [] Unable to drive [] Unable to eat/drink [] Unable to sleep [] Unable to be with family [] Patient intubated [] Other: Summary Pt expecting to be released today. His is coming around noon so he will have a ride home. [place] live 125 [place]. The doctors have decided to change his medication in an attempt to correct the heart issues he is having. He was in the ER 25 hours before moved to a room. Time spent with patient 15m
--- NOTE | 2021-04-02 09:47 | PC.SOCIAL ---
pts nitro didn't get his nitro from the pharmacy, there was no script. policy writer typist called nitro into [facility].
--- NOTE | 2021-04-02 13:39 | PC.SOCIAL ---
pt wished for his follow up appointment with Dr. Vargas to be cancelled. he will reschedule when he is ready.
== END 2021-03-31 12:27 | disposition home or self-care (01) | DRG 303 ==
LOC: ER 22:18 → ER IP 03-30 01:50 → MEDSURG 03-30 15:40
PROVIDERS: Emergency Medicine; Admitting Provider Hospitalist; Emergency Provider Emergency Medicine; PCP Physician Assistant Medical; Visit Provider Internal Medicine
DX: I25.10 Atherosclerotic heart disease of native coronary artery without angina pectoris (principal); R07.2 Precordial pain; Z95.5 Presence of coronary angioplasty implant and graft; E11.65 Type 2 diabetes mellitus with hyperglycemia; E11.22 Type 2 diabetes mellitus with diabetic chronic kidney disease; I12.9 Hypertensive chronic kidney disease with stage 1 through stage 4 chronic kidney disease, or unspecified chronic kidney disease; N18.9 Chronic kidney disease, unspecified; E78.5 Hyperlipidemia, unspecified; M19.90 Unspecified osteoarthritis, unspecified site; Z86.73 Personal history of transient ischemic attack (TIA), and cerebral infarction without residual deficits; I25.2 Old myocardial infarction; Z79.02 Long term (current) use of antithrombotics/antiplatelets
CPT/HCPCS: 36415; 36416; 71045; 78452; 80053; 81003; 82962; 83735; 84443; 84484; 85025; 93005; 96372; 99285; A9500; G0378; J1650; J1815; J2785

== ENCOUNTER → 2021-08-06 14:08 | Outpatient (BNVA) | payer MEDICARE, OTHER, SELFPAY | PROVIDERS: PCP Family Medicine; Visit Provider Internal Medicine Cardiovascular Disease | DX: I25.118 Atherosclerotic heart disease of native coronary artery with other forms of angina pectoris (principal); E78.2 Mixed hyperlipidemia; I10 Essential (primary) hypertension; N28.9 Disorder of kidney and ureter, unspecified; E11.65 Type 2 diabetes mellitus with hyperglycemia; Z79.4 Long term (current) use of insulin | CPT/HCPCS: 99214 ==

== ENCOUNTER 2023-11-27 10:57 | Emergency (ER) | payer MEDICARE, OTHER, SELFPAY ==
[2023-11-27 11:02] VITALS: PULSE 65; TEMP 37.1; O2SAT 99; BMI 24.7
--- NOTE | 2023-11-27 11:06 | XRR_ITS ---
PROCEDURE INFORMATION: Exam: XR Left Hip Exam date and time: 11/27/2023 11:21 AM Age: 83 years old Clinical indication: Hip pain; Left hip; Additional info: Nontraumatic left hip pain. With pelvis TECHNIQUE: Imaging protocol: Radiologic exam of the left hip. Views: 2 or 3 views hip with pelvis when performed. COMPARISON: No relevant prior studies available. FINDINGS: Bones/joints: Mild-moderate degenerative changes left hip joint consisting of mild joint space narrowing, subchondral sclerosis and mild marginal spurring. No fracture or malalignment. Similar degenerative changes are present at the right hip joint. Soft tissues: Unremarkable. XR/XR hip LT 2-3V wo/w pel* [id number] IMPRESSION: Mild-moderate degenerative changes left hip joint. No acute bony abnormalities.
--- NOTE | 2023-11-27 11:17 | W.ED.EXTPRO ---
HPI - Extremity Problem General: Chief complaint: Extremity Injury, Lower Stated complaint: left side hip pain Time Seen by Provider: 11/27/23 11:04 History of Present Illness: Patient developed left hip pain radiating down the back of his leg for the last 3 days. He is never anything like this before. No known injury. He is still able to walk but with difficulty. He is neurovascularly intact. Review of Systems Narrative: Constitutional symptoms: Negative except as documented in HPI. Skin symptoms: Negative except as documented in HPI. Eye symptoms: Negative except as documented in HPI. ENMT symptoms: Negative except as documented in HPI. Respiratory symptoms: Negative except as documented in HPI. Cardiovascular symptoms: Negative except as documented in HPI. Gastrointestinal symptoms: Negative except as documented in HPI. Genitourinary symptoms: Negative except as documented in HPI. Musculoskeletal symptoms: Negative except as documented in HPI. Neurologic symptoms: Negative except as documented in HPI. Psychiatric symptoms: Negative except as documented in HPI. Endocrine symptoms: Negative except as documented in HPI. [facility] ED PFSH: Medical History Abnormal stress test Atherosclerotic heart disease of [place] coronary artery with other forms of angina pectoris EKG revealed on 12/26/2019 revealed a sinus rhythm with a normal ST-T's. No evidence of pericarditis or ischemia. CAD (coronary artery disease) Status post drug-eluting stent placement to mid circumflex and balloon angioplasty of jailed first obtuse marginal. Continue dual antiplatelet therapy and low-dose Crestor. Chest pain Diabetes Dizziness Hyperlipidemia Hypertension Well-controlled. Continue current medications. Osteoarthritis Renal insufficiency TIA (transient ischemic attack) Surgical History H/O hernia repair H/O vein stripping History of back surgery Stented coronary artery Family History Brother Cancer Chronic kidney disease (CKD) Diabetes Mother Diabetes Father Diabetes Sister Diabetes Denies family history of CAD (coronary artery disease) Clotting disorder Dementia Suicide Anesthesia complication Bleeding disorder Lung disease Stroke Social History Smoking and tobacco/nicotine status: never used tobacco/nicotine Alcohol intake: never Substance/Drug Use: never Physical Exam Narrative: EXAM NARRATIVE: General: Alert, no acute distress. Skin: warm and dry Head: Normocephalic Neck: Trachea midline Eye: Extraocular movements are intact. Ears, nose, mouth and throat: Oral mucosa moist Respiratory: Respirations are non-labored Musculoskeletal: Normal ROM Neurological: Alert and oriented, No focal neurological deficit observed. Psychiatric: Cooperative, appropriate mood & affect. Course Vital Signs: Vital signs: Vital Signs Temperature 98.7 F 11/27/23 11:02 Pulse Rate 65 11/27/23 11:02 Pulse Oximetry 99 11/27/23 11:02 MDM - Extremity (Nontraumatic) Medical Decision Making X-ray of the left hip and pelvis: No obvious focal abnormalities. No fractures. No dislocations. He does have some degenerative changes of his hip. Films were interpreted by myself the emergency room provider and pending final radiology review. Assessment and plan: Sciatica -Low-dose IM Toradol and IM Decadron in the emergency room - Discharged home - Discussed plan with patient. Answered any questions. - Evaluation and treatment of this problem were appropriate in the emergency setting. All radiology interpretation(s) finalized by discharge Discharge Plan Discharge Patient Disposition: Home Clinical Impression: Sciatica Qualifiers: Laterality: left Qualified Code(s): M54.32 - Sciatica, left side Condition: Stable Prescriptions: New diclofenac sodium 50 mg tablet,delayed release (DR/EC) 50 mg PO BID PRN (Reason: pain) Qty: 14 0RF tramadol 50 mg tablet 50 mg PO Q8H PRN (Reason: pain) Qty: 10 0RF cyclobenzaprine 5 mg tablet 5 mg PO BEDTIME PRN (Reason: back pain) Qty: 10 0RF No Action clopidogrel 75 mg tablet 75 mg PO BEDTIME alprazolam 0.25 mg tablet 0.125 mg PO BID isosorbide mononitrate 30 mg tablet extended release 24 hr 30 mg PO DAILY Patient Comments: Pt wants to continue taking 15mg for now due to stomach upset ketoconazole 2 % cream 1 applic topical BID Qty: 30 6RF Rx Instructions: Apply to red, scaly areas on face 1-2 times daily amlodipine 5 mg tablet 5 mg PO BEDTIME lovastatin 20 mg tablet 20 mg PO BEDTIME Tresiba FlexTouch U-200 200 unit/mL (3 mL) insulin pen 22 unit SUBCUT DAILY@19 Vitamin B-6 1 cap PO DAILY Nitrostat 0.4 mg tablet, sublingual 0.4 mg SUBLINGUAL Q5M PRN (Reason: Chest Pain) Qty: 30 2RF Discharge Orders: Discharge ED (Routine); Ordered 11/27/23 Ordered By: Bijal Tinoco Referrals: Francisco Vargas [Primary Care Provider] - 1-3 days Discharge Diet: Usual diet Discharge Activity: Increase activity as tolerated Patient Instructions: Sciatica (ED) Activity Restrictions/Additional Instructions: Please be very careful taking the tramadol and Flexeril as they can make older individuals dizzy and off balance and sometimes confused. If any of these things happen please discontinue their use. Thank you for choosing [facility] for your healthcare needs today. Please realize this is an emergency room and that we are providing you with a medical screening exam and this may not be complete and all inclusive of all the testing and or work up that you may need to determine your ailment or severity of your illness. You have been screened and evaluated and felt safe for discharge. Health conditions do change or evolve sometimes and as such it is important that you follow up with your Primary Doctor to be re checked, 3-5 days is a general good time frame for follow up. You are always welcome to return to the ED for re assessment if your symptoms are worsening or you have new concerns Coding Level of Care Code ED Physicist Astrophysics for Dawn Ho
[2023-11-27] MEDS: ketorolac 30 mg/mL INJ IM (12:17)
[2023-11-27] MEDS: dexamethasone 10 mg/mL INJ IM (12:17)
== END 2023-11-27 12:34 | disposition home or self-care (01) ==
PROVIDERS: Emergency Provider Emergency Medicine; PCP Family Medicine
DX: M54.32 Sciatica, left side (principal); Z79.02 Long term (current) use of antithrombotics/antiplatelets; Z79.4 Long term (current) use of insulin; I25.10 Atherosclerotic heart disease of native coronary artery without angina pectoris; E11.9 Type 2 diabetes mellitus without complications; E78.5 Hyperlipidemia, unspecified; I10 Essential (primary) hypertension; Z86.73 Personal history of transient ischemic attack (TIA), and cerebral infarction without residual deficits
CPT/HCPCS: 73502; 96372; 99284; J1100; J1885

== ENCOUNTER → 2024-01-16 08:23 | Outpatient (BNVA) | payer MEDICARE, OTHER, SELFPAY | PROVIDERS: PCP Family Medicine; Visit Provider Specialist | DX: M70.62 Trochanteric bursitis, left hip (principal) | CPT/HCPCS: 20610; 73502; 99204; J1100; J2795; J3301 ==

== ENCOUNTER → 2024-02-27 10:31 | Outpatient (BNVA) | payer MEDICARE, OTHER, SELFPAY | PROVIDERS: PCP Family Medicine; Visit Provider Specialist | DX: M16.11 Unilateral primary osteoarthritis, right hip (principal) | CPT/HCPCS: 20610; 73502; 99214 ==

== ENCOUNTER → 2024-03-01 09:02 | Outpatient (BNVA) | payer MEDICARE, OTHER, SELFPAY | PROVIDERS: PCP Family Medicine; Visit Provider Orthopaedic Surgery | DX: M54.50 Low back pain, unspecified (principal); M54.9 Dorsalgia, unspecified; M48.062 Spinal stenosis, lumbar region with neurogenic claudication | CPT/HCPCS: 72110; 99204 ==

== ENCOUNTER 2024-03-05 11:49 | Outpatient (CLI) | payer MEDICARE, OTHER, SELFPAY ==
--- NOTE | 2024-03-05 12:15 | MR_ITS ---
WS: [id number] MRI LUMBAR SPINE NONCONTRAST HISTORY: back pain COMPARISON: None available. TECHNIQUE: Sagittal and axial multisequence imaging is submitted. Moderate increase in thoracic kyphosis. Increase in cervical lordosis. C5-6 Central disc protrusion. Normal posterior lumbar alignment. Disc spaces are desiccated. No fracture. No marrow edema Conus terminates normally at L1-2 disc level. L1-L2: Diffuse annular disc bulging. No stenosis. Mild facet arthritis. L2-L3: Diffuse annular disc bulging. Shallow bilateral foraminal disc protrusions with moderate ligam entum flavum and facet arthritis. Encroachment upon the central thecal sac and subarticular recesses. Mild central, bilateral subarticular recess and LEFT foraminal stenosis. Encroachment upon the trave rsing L3 nerve roots. L3-L4: Diffuse annular disc bulging with moderate ligamentum flavum and facet arthritis. Disc contact s the traversing L4 nerve roots. Mild central, bilateral subarticular recess and LEFT foraminal steno sis. L4-L5: Diffuse annular disc bulging with osteophytic ridging. Central and bilateral small foraminal d isc protrusions. There is contact on the traversing L5 nerve roots. Mild central with moderate subart icular recess and LEFT foraminal stenosis. Mild RIGHT foraminal stenosis. L5-S1: Diffuse annular disc bulging with disc contacting the traversing S1 nerve roots. Small amount of fluid in the facet joints. Mild bilateral foraminal and subarticular recess stenosis. MR/MR lumbar spine wo con* [id number] IMPRESSION: 1. L4-5: Small central and bilateral foraminal disc protrusions contacting the traversing L5 nerve roots. Mild central with moderate subarticular recess and LEFT foraminal stenosis. 2. L3-4: Mild central, bilateral subarticular recess and LEFT foraminal stenos is. 3. L2-3: Mild central, bilateral subarticular recess and LEFT foraminal stenos is. Encroachment upon the traversing L3 nerve roots. 4. L5-S1: Mild bilateral foraminal and subarticular recess stenosis.
== END 2024-03-05 11:50 | disposition home or self-care (01) ==
LOC: RAD 11:50
PROVIDERS: PCP Family Medicine; Visit Provider Orthopaedic Surgery
DX: M47.896 Other spondylosis, lumbar region (principal); M51.360 Other intervertebral disc degeneration, lumbar region with discogenic back pain only; M99.63 Osseous and subluxation stenosis of intervertebral foramina of lumbar region; M25.78 Osteophyte, vertebrae
CPT/HCPCS: 72148

== ENCOUNTER → 2024-03-08 13:03 | Outpatient (BNVA) | payer MEDICARE, OTHER, SELFPAY | PROVIDERS: PCP Family Medicine; Visit Provider Orthopaedic Surgery | DX: Z01.818 Encounter for other preprocedural examination (principal); E11.65 Type 2 diabetes mellitus with hyperglycemia; M48.062 Spinal stenosis, lumbar region with neurogenic claudication | CPT/HCPCS: 36415; 80053; 81001; 83036; 85025; 99214 ==

== ENCOUNTER → 2024-03-13 08:13 | Outpatient (BNVA) | payer MEDICARE, OTHER, SELFPAY | PROVIDERS: PCP Family Medicine; Visit Provider Family Medicine | DX: Z01.818 Encounter for other preprocedural examination (principal) | CPT/HCPCS: 93005 ==

== ENCOUNTER 2024-03-19 09:46 | Day surgery (SDC) | payer MEDICARE, OTHER, SELFPAY ==
[2024-03-19] VITALS (9 sets, daily range): BP systolic 150–180; BP diastolic 72–102; PULSE 62–74; RESP 13–20; TEMP 36.1–36.4; O2SAT 95–100; BMI 24.9
--- NOTE | 2024-03-19 10:02 | W.PM.OPSUD ---
Surgery/Procedure H&P Update DATE OF PROCEDURE: March 19, 2024 DATE H&P PERFORMED: 03/13/24 H&P UPDATE INFORMATION: I have reviewed H&P completed within last 30 days, I have examined patient prior to procedure and No changes to prior documentation PREOP DIAGNOSIS: Lumbar stenosis with neurogenic claudication PLANNED PROCEDURE: Operation Date: 03/19/24 11:30 Proposed Procedures p Lumbar Spine Decompression Lumbar Decompression(Not Applicable) - Cecilio Prado DO
--- NOTE | 2024-03-19 10:29 | ANES.PREANE2 ---
Pre-Anesthetic Assessment Height/Weight: Height 1.73 m Preop Diagnosis: Lumbar stenosis with neurogenic claudication Operation Date: 03/19/24 11:30 Proposed Procedures p Lumbar Spine Decompression Lumbar Decompression(Not Applicable) - Cecilio Prado DO Familial anesthetic complications: None Was Beta Shon taken within 24 hours: N/A Was Clonidine taken within 24 hours: N/A Last intake: > 8 hrs Social No alcohol and No tobacco Exam alert, oriented x 3, clear to auscultation bilaterally and regular rate & rhythm Airway Mallampati: Class II Dentition: other (missing (Mulitple)) CV/HEM Coronary Artery Disease (TIFFANY in 2019 - denies any interim CP) and Hypertension Metabolic Diabetes Mellitus (BG 93) and Hyperlipidemia Neuropsych Cerebrovascular Accident Anesthetic Plan ASA status: 3 Anesthesia: General Risk of > 500 ml blood loss (7ml/kg in children): No Medications/Allergies Home Medications Medication Instructions Recorded Confirmed Last Taken Type alprazolam 0.25 mg tablet 0.125 mg PO BID 07/04/19 03/15/24 03/14/24 History clopidogrel 75 mg tablet 75 mg PO BEDTIME 07/04/19 03/15/24 03/14/24 History amlodipine 5 mg tablet 5 mg PO BEDTIME 03/30/21 03/15/24 03/14/24 History lovastatin 20 mg tablet 20 mg PO BEDTIME 03/30/21 03/15/24 03/15/24 History insulin degludec 200 unit/mL (3 24 unit SUBCUT DAILY@19 03/13/24 03/15/24 03/15/24 History mL) subcutaneous pen (Tresiba FlexTouch U-200 insulin) isosorbide mononitrate 30 mg 30 mg PO DAILY 03/13/24 03/15/24 03/15/24 History tablet,extended release 24 hr Allergies Allergy/AdvReac Type Severity Reaction Status Date / Time lisinopril AdvReac Mild Rashes and Verified 03/13/24 08:44 Dizziness [facility] Anesthesia Medical History Renal insufficiency Dizziness Atherosclerotic heart disease of [place] coronary artery with other forms of angina pectoris EKG revealed on 12/26/2019 revealed a sinus rhythm with a normal ST-T's. No evidence of pericarditis or ischemia. Abnormal stress test Chest pain Hyperlipidemia CAD (coronary artery disease) Status post drug-eluting stent placement to mid circumflex and balloon angioplasty of jailed first obtuse marginal. Continue dual antiplatelet therapy and low-dose Crestor. Hypertension Well-controlled. Continue current medications. TIA (transient ischemic attack) Osteoarthritis Diabetes Surgical History History of back surgery H/O hernia repair Stented coronary artery H/O vein stripping Family History Brother Cancer Chronic kidney disease (CKD) Diabetes Mother Diabetes Father Diabetes Sister Diabetes Denies family history of CAD (coronary artery disease) Clotting disorder Dementia Suicide Anesthesia complication Bleeding disorder Lung disease Stroke Social History Smoking and tobacco/nicotine status: never used tobacco/nicotine Alcohol intake: never Substance/Drug Use: never Data Anesthesia Cardiac Studies: Sestamibi Stress Test (Cardiology) 03/30/21
[2024-03-19] MEDS: ceFAZolin 2,000 mg SDV 2000 MG IVP (10:34)
[2024-03-19] MEDS: sodium chloride 0.9% 1,000 ML 30 ML IV (10:37)
[2024-03-19] MEDS: lidocaine-epi 1% 20 mL INJ INJECTION (11:16)
--- NOTE | 2024-03-19 12:10 | PM.OP ---
Operative Report Date of procedure: March 19, 2024 Pre-op diagnosis: Lumbar stenosis neurogenic claudication Post-op diagnosis: same Procedure done: 1. L4-5 revision laminectomy with partial facetectomy Surgeon: Cecilio Prado DO Estimated blood loss (mL): 5 Procedure: 1. L4-5 revision laminectomy with partial facetectomy Patient is brought to the operative suite. After undergoing anesthesia they are placed in the prone position. All areas of impingement are well padded. Patient is then prepped and draped in the normal sterile fashion. A skin incision is made over the L4/5 level. This is confirmed under c-arm guidance. A series of dilators are passed and the tubular retractor is docked on the L4/5 lamina. A bovie is used to clear the soft tissue off the lamina and the L 4/5 facet joint. A high speed watson is then used to perform the laminectomy and take down the medial aspect of the L 4/5 facet joint. A kerrison rongeure was then used to take down the remaining lamina and smooth the edge of the laminectomy up to the point where the ligamentum flavum attaches. Attention was then brought to the medial aspect of the facet joint. The remaining medial aspect of the superior and inferior aspect of the facet joint were taken down with the kerrison from the pedicle of L4 to L 5. The facet joint had significant hypertrophy. Attention was then brought to the Ligamentum Flavum. The ligament was scarred it was peeled off of the facet joint. It was mostly scar tissue. Curved curette was used to separate the nerve from the scar tissue. In the facet. The ligament was taken down from the lamina of L4 to L5 and out medially to the remaining facet joint. The ligament was scarred down. The dura was then exposed. The dura was in good repair. The L4 nerve was then traced with a curette out the L4/5 foramen and found to be adequately decompressed. The L5 nerve was traced with a curette around the L5 pedicle. The lateral recess was opened with a kerrison helping to further decompress the L5 nerve. Wound is then irrigated copiously with saline and surgiflo is used to stop any bleeding. The tubular retractor is removed and the wound is closed with vicryl and monocryl suture. Glue is then used to protect the wound. A sterile dressing is then placed. Patient was then placed in the supine position and transferred to the PACU in stable condition.
--- NOTE | 2024-03-19 13:35 | ANE.PACU2 ---
Inpatient post-anesthesia follow up: Airway intact: Yes Vital signs: Temperature 97.6 F Pulse Rate 67 Respiratory Rate 16 Blood Pressure 150/102 Pulse Oximetry 98 Oxygen Delivery Me thod Room Air Oxygen Flow Rate 8 Fraction of Inspir ed Oxygen Hydration adequate: Yes Nausea and vomiting: No Pain level: 1 Mental status: Baseline
[2024-03-19 14:02] LABS: Glucose Point of Care 93 mg/dL (70-110)
== END 2024-03-19 13:35 | disposition home or self-care (01) ==
PROVIDERS: PCP Family Medicine; Visit Provider Orthopaedic Surgery
PROC: (CPT 63005; principal; 2024-03-19 11:10)
DX: M48.062 Spinal stenosis, lumbar region with neurogenic claudication (principal); I25.110 Atherosclerotic heart disease of native coronary artery with unstable angina pectoris; I10 Essential (primary) hypertension; E11.9 Type 2 diabetes mellitus without complications; E78.5 Hyperlipidemia, unspecified; Z86.73 Personal history of transient ischemic attack (TIA), and cerebral infarction without residual deficits; Z79.4 Long term (current) use of insulin; Z95.5 Presence of coronary angioplasty implant and graft
CPT/HCPCS: 63047; 36416; 76000; 82962; J0690; J1100; J2405; J2704; J3010; J3490; J7030

== ENCOUNTER → 2024-04-03 14:02 | Outpatient (BNVA) | payer MEDICARE, OTHER, SELFPAY | PROVIDERS: PCP Family Medicine; Visit Provider Orthopaedic Surgery | DX: Z98.890 Other specified postprocedural states (principal) | CPT/HCPCS: 99024 ==

== ENCOUNTER → 2024-05-24 10:21 | Outpatient (BNVA) | payer MEDICARE, OTHER, SELFPAY | PROVIDERS: PCP Family Medicine; Visit Provider Orthopaedic Surgery | DX: Z98.890 Other specified postprocedural states (principal) | CPT/HCPCS: 99024 ==

== ENCOUNTER 2024-06-11 13:02 | Emergency (ER) | payer MEDICARE, OTHER, SELFPAY ==
--- NOTE | 2024-06-11 13:12 | XR_ITS ---
WS: [id number] XR chest 1V portable [id number] REASON FOR EXAM: weakness FINDINGS: Mild tortuosity and ectasia of the thoracic aorta. Normal heart size. Calcified granulomatous disease in both hemithoraces. No acute pulmonary parenchymal or pleural abnormality is identified. The chest is unchanged compared to 03/29/2024. XR/XR chest 1V portable [id number] IMPRESSION: Stable chest without acute abnormality.
--- NOTE | 2024-06-11 13:12 | ECG_ITS ---
[facility] Test Date: 2024-06-11 Pat Name: Clinton Duran Department: Room: Gender: Male Department Supervisor: : 1940 Requested By: Guero Aguirre Order Number: [id number] Hedy MD: Tyra Soto M.D. Measurements Intervals [place] Rate: 78 P: 73 ND: 182 QRS: -19 QRSD: 110 T: 44 QT: 372 QTc: 425 Interpretive Statements SINUS RHYTHM WITH OCCASIONAL SUPRAVENTRICULAR PREMATURE COMPLEXES LOW QRS VOLTAGE IN PRECORDIAL LEADS [QRS DEFLECTION < 1.0 mV IN CHEST LEADS] Compared to ECG 03/13/2024 08:22:45 Sinus arrhythmia no longer present Left ventricular hypertrophy no longer present Electronically Signed On 06-13-2024 17:30:06 CLOTH BOIL OFF MACHINE OPERATOR by Tyra Soto M.D. [email or web address]
[2024-06-11 13:15] VITALS: BP 181/97; PULSE 82; TEMP 36.4; O2SAT 97; BMI 25.2
[2024-06-11 13:58] LABS: Basophils % 0.3 %; Eosinophils # 0.1 10^3/uL (0.0-0.8); Eosinophils % 1.3 %; Hematocrit 46.2 % (37-53); Lymphocytes # 1.6 10^3/uL (0.8-4.8); Lymphocytes % 21.5 %; Mean Corpuscular HGB Conc 33.5 g/dL (30-55); Mean Corpuscular Volume 98.3 fl (82-101); Mean Platelet Volume 9.7 fL (7.4-10.4); Monocytes # 0.6 10^3/uL (0.2-0.9); Monocytes % 8.2 %; Neutrophils # 5.19 10^3/uL (1.8-7.7); Neutrophils % 68.4 %; Nucleated Red Blood Cells % 0 %; Platelet Count 168 10^3/cmm (157-399); Red Cell Distribution Width 12.3 % (12.1-15.1); White Blood Count 7.58 10^3/uL (3.29-11.43)
[2024-06-11 14:14] LABS: Alanine Aminotransferase 20 U/L (0-41); Albumin Level 4.3 g/dL (3.5-5.2); Alkaline Phosphatase 132 U/L (40-130); Anion Gap 16.4 (5-19); Aspartate Amino Transferase 17 U/L (0-40); Blood Urea Nitrogen 17 mg/dL (8-23); Calcium 9.5 mg/dL (8.5-10.5); Carbon Dioxide 24 mmol/L (22-29); Chloride 99 mmol/L (98-107); Creatinine Clr Calc Pharmacy 70.9995; Glucose 180 mg/dL (65-115); Osmolality Calculated 286 mOsm/kg (285-295); Potassium 4.4 mmol/L (3.5-5.1); Sodium 135 mmol/L (136-145); Total Bilirubin 0.4 mg/dL (0.15-1.2); Total Protein 7.3 g/dL (6.6-8.7)
--- NOTE | 2024-06-11 16:27 | W.ED.WEAKNES ---
HPI - Weakness General: Chief complaint: Weakness Stated complaint: lighthead, weak Time Seen by Provider: 06/11/24 16:21 Source: patient Mode of arrival: ambulatory Limitations: no limitations History of Present Illness: 84-year-old male states that over the last few weeks he is having some increasing fatigue and just not feeling well states has had some lightheadedness he is also been having some chest pain over the last week. He states that he had had an ultrasound done at [facility] he has a follow-up appointment with Dr. Thompson in cardiology in 2 weeks. He denies any pain currently denies any shortness of breath. Associated symptoms: Reports chest pain; Denies chills, fever(s), headache(s), nausea or vomiting Review of Systems Const: Reports: fatigue and malaise; Denies: fever(s), chills, body aches or change in appetite Eyes: Denies: blurry vision or eye discomfort ENMT: Denies: throat pain or dental pain Card: Reports: chest pain Resp: Denies: dyspnea GI: Denies: abdominal pain, nausea, vomiting or diarrhea Musc: Denies: neck pain or back pain Skin/Breast: Denies: rash Neuro: Denies: headache(s) PFSH ED PFSH: Medical History Renal insufficiency Dizziness Atherosclerotic heart disease of [place] coronary artery with other forms of angina pectoris EKG revealed on 12/26/2019 revealed a sinus rhythm with a normal ST-T's. No evidence of pericarditis or ischemia. Abnormal stress test Chest pain Hyperlipidemia CAD (coronary artery disease) Status post drug-eluting stent placement to mid circumflex and balloon angioplasty of jailed first obtuse marginal. Continue dual antiplatelet therapy and low-dose Crestor. Hypertension Well-controlled. Continue current medications. TIA (transient ischemic attack) Osteoarthritis Diabetes Surgical History History of back surgery H/O hernia repair Stented coronary artery H/O vein stripping Family History Brother Cancer Chronic kidney disease (CKD) Diabetes Mother Diabetes Father Diabetes Sister Diabetes Denies family history of CAD (coronary artery disease) Clotting disorder Dementia Suicide Anesthesia complication Bleeding disorder Lung disease Stroke Social History Smoking and tobacco/nicotine status: never used tobacco/nicotine Alcohol intake: never Substance/Drug Use: never Physical Exam Const: COMMON NORMALS: patient oriented x3 HENMT: COMMON NORMALS: normocephalic and atraumatic HEAD & SCALP: normocephalic and atraumatic Eye: COMMON NORMALS: Equal, round and reactive pupils present and EOMs intact bilaterally PUPIL: Yes Equal, round and reactive pupils present Neck/C-Spine: COMMON NORMALS: full ROM and supple Chest: COMMONS NORMALS: normal inspection of the chest and normal palpation of entire chest wall Resp: COMMON NORMALS: normal respiratory effort, No retractions, No use of accessory muscles and clear to auscultation bilaterally AUSCULTATION: clear to auscultation bilaterally Cardio: COMMON NORMALS: regular rate, regular rhythm and No murmurs present (Cardio) RATE: regular rate RHYTHM: regular rhythm GI: COMMON NORMALS: Normal to inspection, nondistended, normoactive bowel sounds present, Soft to palpation, non-tender and no masses PALPATION: Yes Soft to palpation Extremity: COMMON NORMALS: normal to inspection and full ROM Neuro: COMMON NORMALS: patient oriented x3, moves all extremities and no focal motor deficits Psych: COMMON NORMALS: mental status grossly normal, Normal thought process present and cooperative THOUGHT PROCESS: Normal thought process present Skin: COMMON NORMALS: no rashes or lesions noted and no wounds GENERAL SKIN EXAM: no rashes or lesions noted Course Vital Signs: Vital signs: Vital Signs Temperature 97.6 F 06/11/24 13:15 Pulse Rate 81 06/11/24 18:00 Respiratory Rate 16 06/11/24 18:00 Blood Pressure 147/99 06/11/24 18:00 Pulse Oximetry 98 06/11/24 18:00 Oxygen Delivery Me thod Room Air 06/11/24 18:00 MDM - Weakness Medical Decision Making Patient presents here with feeling generally weak along with having chest pain his troponin and blood work here are all normal he has been well-appearing here he has follow-up with cardiology in 2 weeks he is follow-up as scheduled he is return if worsening he understands agrees to plan Medical Records I reviewed the patient's medical records. Lab Data I reviewed the patient's lab results. 06/11/24 13:49 06/11/24 13:49 Radiology Impressions Chest X-Ray 06/11/24 13:12 IMPRESSION: Stable chest without acute abnormality. Laboratory Results WBC 7.58 10^3/uL (3.29-11.43) 06/11/24 13:49 RBC 4.70 10^6/uL (3.85-5.65) 06/11/24 13:49 Hgb 15.50 g/dL (11.27-16.99) 06/11/24 13:49 Hct 46.2 % (37-53) 06/11/24 13:49 MCV 98.3 fl (82-101) 06/11/24 13:49 MCH 33.0 pg (27-33) 06/11/24 13:49 MCHC 33.5 g/dL (30-55) 06/11/24 13:49 RDW 12.3 % (12.1-15.1) 06/11/24 13:49 Plt Count 168 10^3/cmm (157-399) 06/11/24 13:49 MPV 9.7 fL (7.4-10.4) 06/11/24 13:49 Neut % (Auto) 68.4 % 06/11/24 13:49 Lymph % (Auto) 21.5 % 06/11/24 13:49 [place] % (Auto) 8.2 % 06/11/24 13:49 Eos % (Auto) 1.3 % 06/11/24 13:49 Baso % (Auto) 0.3 % 06/11/24 13:49 Neut # (Auto) 5.19 10^3/uL (1.8-7.7) 06/11/24 13:49 Lymph # (Auto) 1.6 10^3/uL (0.8-4.8) 06/11/24 13:49 [place] # (Auto) 0.6 10^3/uL (0.2-0.9) 06/11/24 13:49 Eos # (Auto) 0.1 10^3/uL (0.0-0.8) 06/11/24 13:49 Baso # (Auto) 0.0 10^3/uL (0.0-0.1) 06/11/24 13:49 Nucleated RBC % (auto) 0 % 06/11/24 13:49 Nucleated RBCs # 0.0 /100WBC 06/11/24 13:49 Sodium 135 mmol/L (136-145) L 06/11/24 13:49 Potassium 4.4 mmol/L (3.5-5.1) 06/11/24 13:49 Chloride 99 mmol/L (98-107) 06/11/24 13:49 Carbon Dioxide 24 mmol/L (22-29) 06/11/24 13:49 Anion Gap 16.4 (5-19) 06/11/24 13:49 BUN 17 mg/dL (8-23) 06/11/24 13:49 Creatinine 0.8 mg/dL (0.7-1.2) 06/11/24 13:49 GFR Calculation Not Reportable 06/11/24 13:49 Glucose 180 mg/dL (65-115) H 06/11/24 13:49 Calculated Osmolality 286 mOsm/kg (285-295) 06/11/24 13:49 Calcium 9.5 mg/dL (8.5-10.5) 06/11/24 13:49 Total Bilirubin 0.4 mg/dL (0.15-1.2) 06/11/24 13:49 AST 17 U/L (0-40) 06/11/24 13:49 ALT 20 U/L (0-41) 06/11/24 13:49 Alkaline Phosphatase 132 U/L (40-130) H 06/11/24 13:49 Troponin T Baseline 14 ng/L (0-15) 06/11/24 17:16 Total Protein 7.3 g/dL (6.6-8.7) 06/11/24 13:49 Albumin 4.3 g/dL (3.5-5.2) 06/11/24 13:49 Globulin 3.0 g/dL (1.3-4.6) 06/11/24 13:49 Urine Color Yellow (Yellow) 06/11/24 16:47 Urine Appearance Clear (CLEAR) 06/11/24 16:47 Urine pH 5.5 (5-7) 06/11/24 16:47 Ur Specific Crystal 1.033 (1.005-1.030) H 06/11/24 16:47 Urine Protein 1+ (Negative) A 06/11/24 16:47 Urine Glucose (UA) 3+ (Normal) H 06/11/24 16:47 Urine Ketones Trace (Negative) 06/11/24 16:47 Urine Blood Negative (Negative) 06/11/24 16:47 Urine Nitrate Negative (Negative) 06/11/24 16:47 Urine Bilirubin Negative (Negative) 06/11/24 16:47 Urine Urobilinogen 1.0 mg/dL (Negative) 06/11/24 16:47 Ur Leukocyte Esterase Negative (Negative) 06/11/24 16:47 Urine RBC 0-2 /hpf (0-2) 06/11/24 16:47 Urine WBC 0-5 /hpf (0-5) 06/11/24 16:47 Ur Squamous Epith Cells 0-5 /hpf (0-5) 06/11/24 16:47 Amorphous Sediment Not Reportable 06/11/24 16:47 Urine Bacteria None seen /hpf (NONE) 06/11/24 16:47 Hyaline Casts 1.21 /lpf 06/11/24 16:47 All radiology interpretation(s) finalized by discharge EKG Data EKG 1: I personally reviewed and interpreted this EKG as follows: EKG interpretation date: 06/11/24 EKG interpretation time: 10:55 Interpretation: paced hr [address] elevation qrs 173 qtc 494 Discharge Plan Discharge Patient Disposition: Home Clinical Impression: Chest pain Condition: Stable Prescriptions: No Action clopidogrel 75 mg tablet 75 mg PO BEDTIME alprazolam 0.25 mg tablet 0.125 mg PO BID isosorbide mononitrate 30 mg tablet extended release 24 hr 30 mg PO DAILY hydrocodone-ibuprofen 5-200 mg tablet 1 tab PO Q4H MDD 6 PRN (Reason: pain) 7 Days Qty: 42 0RF Rx Instructions: replace the hydrocodone/APAP insurance does not pay for amlodipine 5 mg tablet 5 mg PO BEDTIME lovastatin 20 mg tablet 20 mg PO BEDTIME Tresiba FlexTouch U-200 200 unit/mL (3 mL) insulin pen 24 unit SUBCUT DAILY@19 celecoxib [Celebrex] 200 mg capsule 200 mg PO BID PRN (Reason: Pain) Discharge Orders: Discharge ED (Routine); Ordered 06/11/24 Ordered By: Guero Aguirre Referrals: Francisco Vargas [Primary Care Provider] - Discharge Diet: Advance as tolerated Discharge Activity: Resume usual activity Patient Instructions: Chest Pain (ED) Print Language: Ukrainian Coding Level of Care Code ED Wrapper And Preserver for Chg Fwd Related Data Home Medications ?Medication ?Instructions ?Recorded ?Confirmed alprazolam 0.25 mg tablet 0.125 mg PO BID 07/04/19 06/11/24 clopidogrel 75 mg tablet 75 mg PO BEDTIME 07/04/19 06/11/24 Held on 03/19/24. Instructions: Resume on 03/21/24. amlodipine 5 mg tablet 5 mg PO BEDTIME 03/30/21 06/11/24 lovastatin 20 mg tablet 20 mg PO BEDTIME 03/30/21 06/11/24 insulin degludec 200 unit/mL (3 24 unit SUBCUT DAILY@19 03/13/24 06/11/24 mL) subcutaneous pen (Tresiba FlexTouch U-200 insulin) isosorbide mononitrate 30 mg 30 mg PO DAILY 03/13/24 06/11/24 tablet,extended release 24 hr celecoxib 200 mg capsule (Celebrex) 200 mg PO BID PRN Pain 06/11/24 06/11/24 Previous Rx's ?Medication ?Instructions ?Recorded hydrocodone 5 mg-ibuprofen 200 mg 1 tab PO Q4H PRN pain 7 days #42 04/03/24 tablet tabs Allergies Allergy/AdvReac Type Severity Reaction Status Date / Time lisinopril AdvReac Mild Rashes and Verified 06/11/24 13:25 Dizziness
[2024-06-11 17:13] VITALS: BP 151/108; PULSE 84; RESP 15; O2SAT 98
[2024-06-11 17:17] LABS: Bilirubin Urine Negative (Negative); Blood Urine Negative (Negative); Glucose Urine UA 3+ (Normal); Ketones Urine Trace (Negative); Leukocyte Esterase Urine Negative (Negative); Nitrate Urine Negative (Negative); Protein Urine 1+ (Negative); Urine Appearance Clear (CLEAR); Urine Color Yellow (Yellow); pH Urine 5.5 (5-7)
[2024-06-11 17:19] LABS: Add Urine Microscopic? YES; Bacteria Urine None Seen /hpf; Hyaline Casts Urine 1.21 /lpf; RBC Urine 0-2 /hpf (0-2); Squamous Epithelial Cell Urine 0-5 /hpf (0-5); WBC Urine 0-5 /hpf (0-5)
[2024-06-11 17:20] LABS: Specific Gravity, Urine 1.033 (1.005-1.030)
[2024-06-11 18:00] VITALS: BP 147/99; PULSE 81; RESP 16; O2SAT 98
--- NOTE | 2024-06-11 18:08 | ECG_ITS ---
[facility] Test Date: 2024-06-11 Pat Name: Clinton Duran Department: Room: Gender: Male Exercise Teacher: : 1940 Requested By: Guero Aguirre Order Number: [id number] Hedy MD: Tyra Soto M.D. Measurements Intervals [place] Rate: 82 P: 56 ME: 219 QRS: -13 QRSD: 99 T: 31 QT: 361 QTc: 424 Interpretive Statements SINUS RHYTHM WITH SINUS ARRHYTHMIA WITH FIRST DEGREE AV BLOCK LOW QRS VOLTAGE IN PRECORDIAL LEADS [QRS DEFLECTION < 1.0 mV IN CHEST LEADS] INCOMPLETE RIGHT BUNDLE BRANCH BLOCK [90+ ms QRS DURATION, TERMINAL R IN V1/V2, 40+ ms S IN I/aVL/V4/V5/V6] MINIMAL VOLTAGE CRITERIA FOR LVH, CONSIDER NORMAL VARIANT [MEETS CRITERIA IN ONE OF: R(aVL), S(V1), R(V5), R(V5/V6)+S(V1)] Compared to ECG 06/11/2024 13:20:36 First degree AV block now present Incomplete right bundle-branch block now present Electronically Signed On 06-13-2024 18:04:52 MONKEY BREEDER by Tyra Soto M.D. [id number] [id number]
[2024-06-11 18:27] LABS: Troponin(5th) Baseline 14 ng/L (0-15)
[2024-06-11 18:49] VITALS: BP 187/89; PULSE 90; RESP 16; O2SAT 100
== END 2024-06-11 18:49 | disposition home or self-care (01) ==
PROVIDERS: Emergency Provider Emergency Medicine; PCP Family Medicine
DX: R07.9 Chest pain, unspecified (principal); Z79.02 Long term (current) use of antithrombotics/antiplatelets; Z86.73 Personal history of transient ischemic attack (TIA), and cerebral infarction without residual deficits; I25.10 Atherosclerotic heart disease of native coronary artery without angina pectoris; E78.5 Hyperlipidemia, unspecified; E11.9 Type 2 diabetes mellitus without complications; I10 Essential (primary) hypertension
CPT/HCPCS: 36415; 71045; 80053; 81001; 84484; 85025; 93005; 99285

== ENCOUNTER 2024-07-06 08:36 | Outpatient (CLI) | payer MEDICARE, OTHER, SELFPAY ==
--- NOTE | 2024-07-06 | ECG_ITS ---
[facility] Test Date: 2024-07-06 Pat Name: Clinton Duran Department: Room: Gender: Male Suction Plate Carrier Cleaner: : 1940 Requested By: Franky Thompson Order Number: [id number] Reading MD: FRANKY THOMPSON Interpretive Statements Lung unchanged pre/post procedure; Intraprocedure shortess of breath; Symptoms resoled by discharge NOTE: Please note that this is the electrocardiogram portion of the Lexiscan/Sestamibi stress test. The perfusion scan will be documented separately. DATA: Baseline heart rate was 71 beats per minute. Baseline blood pressure was 177/90 millimeters of mercury. Target heart rate was 134. Maximum heart rate achieved was 96. which was 71 % of the predicted target heart rate. Maximum blood pressure was 177/91 millimeters of mercury. The reason for ending the test was completion of the protocol. The patient did not experience any symptoms. ELECTROCARDIOGRAM: BASELINE: Sinus rhythm. Normal axis. Otherwise, no ST-T changes suggestive of ischemia noted. No arrhythmia noted. EXERCISE: After Lexiscan injection, no ST-T changes suggestive of ischemic noted. No arrhythmia noted. CONCLUSION: Please note due to baseline abnormality of the EKG specificity and sensitivity of the EKG portion of LexiScan MIBI stress test will be low 1. EKG not suggestive of ischemia 2. Lexiscan injection unremarkable. 3. Perfusion scan will be documented separately. Electronically Signed On 08-12-2024 20:59:09 CDT by FRANKY THOMPSON [id number] [id number]
[2024-07-06 09:39] VITALS: BMI 25.2
--- NOTE | 2024-07-06 09:39 | NMCV_ITS ---
NM elmira perf SPECT r/s* [id number] Clinton Duran Age: 84 Gender: M : 1940 Exam Date: 07/06/2024 09:39 Ordering Phys: Franky Thompson MD ([email or web address]) Technologist: BETH Tomas Exam Location: [facility] Indications: cp STRESS TEST Please see separate stress test report in [facility] for full findings IMAGE PROTOCOL Rest/Stress 1 Lexiscan Day Radiopharmaceutical Dose (mCi) Administration Site Administered by Rest: Tc-99m 10.6 IV Jeanie Quispe CAMP DISHWASHER Sestamibi Stress:Tc-99m 32.8 IV Jeanie Quispe, CAMP DISHWASHER Sestamibi Rest: 06-Jul-2024 60 Discovery 630 Stress: 06-Jul-2024 30 Discovery 630 0.4mg Lexiscan. Images obtained in supine and prone position. SPECT RESULTS Technical Quality: Good Raw Data Analysis: Normal Image Corrections: No attenuation or motion correction applied Summed Stress Score: 9 Summed Rest Score: 6 Summed Difference Score: 3 PERFUSION FINDINGS There is medium size fixed perfusion defect noted in basal to distal inferior and inferolateral wall suggestive of old myocardial infarction without darrius infarct ischemia. FUNCTIONAL RESULTS (calculated via Gated SPECT) Stress Image LV EF (%): 78 Stress EDV (mL):55 TID: 0.96 Stress ESV (mL):12 FUNCTIONAL FINDINGS: Basal to distal inferior wall akinesis IMPRESSIONS There is medium size fixed perfusion defect noted in basal to distal inferior and inferolateral wall suggestive of old myocardial infarction without darrius infarct ischemia. Franky Thompson MD (Electronically Signed) Final Date: 09 July 2024 09:27 S
[2024-07-06] MEDS: regadenoson 0.4 Mg/5 ml Syringe IVP (11:21)
[2024-07-06 11:30] VITALS: BP 160/91; PULSE 80
== END 2024-07-06 08:37 | disposition home or self-care (01) ==
LOC: CDL 08:37
PROVIDERS: PCP Family Medicine; Visit Provider Internal Medicine Cardiovascular Disease
DX: R07.9 Chest pain, unspecified (principal); R93.1 Abnormal findings on diagnostic imaging of heart and coronary circulation
CPT/HCPCS: 36415; 78452; 93017; 96374; A9500; J2785

== ENCOUNTER → 2024-09-05 14:33 | Outpatient (BNVA) | payer MEDICARE, OTHER, SELFPAY | PROVIDERS: PCP Family Medicine; Visit Provider Internal Medicine Cardiovascular Disease | DX: R26.9 Unspecified abnormalities of gait and mobility (principal); E78.2 Mixed hyperlipidemia; I25.118 Atherosclerotic heart disease of native coronary artery with other forms of angina pectoris; R42 Dizziness and giddiness; E11.65 Type 2 diabetes mellitus with hyperglycemia; I35.0 Nonrheumatic aortic (valve) stenosis; I10 Essential (primary) hypertension; Z79.01 Long term (current) use of anticoagulants; Z86.73 Personal history of transient ischemic attack (TIA), and cerebral infarction without residual deficits; Z95.5 Presence of coronary angioplasty implant and graft | CPT/HCPCS: 99214 ==

== ENCOUNTER 2024-11-05 15:44 | Emergency (ER) | payer MEDICARE, OTHER, SELFPAY ==
--- NOTE | 2024-11-05 15:46 | XRR_ITS ---
PROCEDURE INFORMATION: Exam: XR Chest Exam date and time: 11/05/2024 5:52 PM Age: 84 years old Clinical indication: Cough; Additional info: Weakness TECHNIQUE: Imaging protocol: Radiologic exam of the chest. Views: 1 view. COMPARISON: CR XR chest 1V portable [id number] 06/11/2024 3:35 PM FINDINGS: Lungs: Unremarkable. No consolidation. Pleural spaces: Mild chronic scar or pleural reaction noted in the left costophrenic angle similar to prior. Heart/Mediastinum: Unremarkable. No cardiomegaly. Bones/joints: Unremarkable. XR/XR chest 1V portable [id number] IMPRESSION: No acute findings.
--- OUTSIDE RECORDS SUMMARY | 2024-11-05 15:49 | XMS_ITS | Encounter Summary ---
Author Organization [facility] Address [address] [place] [address] Care Team Providers Care Intelligent Systems Engineer Name Role Phone Francisco Vargas MD Primary Care Provider [phone] [phone] Encounter Details Date Type Department Care Team (Latest Contact Info) Description 10/19/2006 Outpatient Historical [facility]- [address] [phone] Porter Mirza PA NO ADDRESS ON FILE Adjustment Disorder with Anxiety (Primary Dx); Unspecified Essential Hypertension; Other Testicular Hypofunction; Allergy, Unspecified not Elsewhere Classified Social History Tobacco Use Types Packs/Day Years Used Date Smoking Tobacco: Never Assessed Sex and Gender Information Value Date Recorded Sex Assigned at Not on file Legal 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
--- OUTSIDE RECORDS SUMMARY | 2024-11-05 15:49 | XMS_ITS | Encounter Summary ---
Author Organization [facility] Address [address] [place] [address] Care Team Providers Care Sieve Grader Tender Name Role Phone Francisco Vargas MD Primary Care Provider [phone] Encounter Details Date Type Department Care Team (Latest Contact Info) Description 10/28/2004 Outpatient Historical [facility] [address] [place] [phone] Dung Benson MD [address] [facility] [address] [place] [id number] DIABETES MELLITUS TYPE II-UNCOMPL (CMS/HCC) (Primary Dx); TESTICULAR HYPOFUNC NEC; DEPRESSIVE DISORDER NEC Social History Tobacco Use Types Packs/Day Years Used Date Smoking Tobacco: Never Assessed Sex and Gender Information Value Date Recorded Sex Assigned at Not on file Legal 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 Gender Identity Not on file Sexual Orientation Not on file documented as of this encounter Plan of Treatment Not on file documented as of this encounter Visit Diagnoses Diagnosis Type II or unspecified type diabetes mellitus without mention of complication, not stated as uncontrolled- Primary Other testicular hypofunction Depressive disorder, not elsewhere classified documented in this encounter Care Teams Sieve Grader Tender Relationship Specialty Start Date End Date Francisco Vargas MD [address] [facility] [address] [place] [address] PCP - General Family Practice 10/28/20 documented as of this encounter
--- OUTSIDE RECORDS SUMMARY | 2024-11-05 15:49 | XMS_ITS | Encounter Summary ---
Author Organization [facility] Address [address] [place] [address] Care Team Providers Care Bank Note Designer Name Role Phone Francisco Vargas MD Primary Care Provider [phone] Encounter Details Date Type Department Care Team (Late st Contact Info) Description 05/23/2007 Outpatient Historical [facility] Medicine- [address] [phone] Reynold Mejia MD NO ADDRESS ON FILE Social History Tobacco Use Types Packs/Day Years Used Date Smoking Tobacco: Never Assessed Sex and Gender Information Value Date Recorded Sex Assigned at Not on file Legal Sex Male 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
--- OUTSIDE RECORDS SUMMARY | 2024-11-05 15:49 | XMS_ITS | Encounter Summary ---
Author Organization [facility] Address [address] [place] [address] Care Team Providers Care Pilot Instructor Name Role Phone Francisco Vargas MD Primary Care Provider [phone] Encounter Details Date Type Department Care Team (Latest Contact Info) Description 02/22/2007 Outpatient Historical [facility] [place] [address] [place] [address] Rao Lew MD NO ADDRESS ON FILE Special Screening for Malignant Neoplasms, Colon (Primary Dx); Benign Neoplasm of Colon; Benign Neoplasm of Rectum and Anal Canal; DM w/o Complication Type II (CMS/HCC); Old Myocardial Infarction; Unspecified Essential Hypertension Social History Tobacco Use Types Packs/Day Years Used Date Smoking Tobacco: Never Assessed Sex and Gender Information Value Date Recorded Sex Assigned at Not on file Legal Sex 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 Gender Identity Not on file Sexual Orientation Not on file documented as of this encounter Plan of Treatment Not on file documented as of this encounter Procedures Procedure Name Priority Date/Time Associated Diagnosis Comments POC GLUCOSE Routine 02/22/2007 1:59 PM CDT documented in this encounter Results * POC GLUCOSE (02/22/2007 1:59 PM CDT) GLUCOSE POC 98 60 - 100 mg/dL INTERFACE SYSTEM 02/22/2007 1:59 PM CDT us Rao Lew MD POINT OF CARE TESTING Ed ited INTERFACE SYSTEM Refer to clinic/hospital department documented in this encounter Visit Diagnoses Diagnosis Special screening for malignant neoplasms, colon- Primary Benign neoplasm of colon Benign neoplasm of rectum and anal canal Type II or unspecified type diabetes mellitus without mention of complication, not stated as uncontrolled Old myocardial infarction Unspecified essential hypertension documented in this encounter Care Teams Pilot Instructor Relationship Specialty Start Date End Date Francisco Vargas MD [address] [facility] [address] [place] [address] PCP - General Family Practice 10/28/20 documented as of this encounter
--- OUTSIDE RECORDS SUMMARY | 2024-11-05 15:49 | XMS_ITS | Encounter Summary ---
Author Organization [facility] Address [address] [place] [address] Care Team Providers Care Fuel Conversion Technician Name Role Phone Francisco Vargas MD Primary Care Provider [phone] Encounter Details Date Type Department Care Team (Latest Contact Info) Description 03/08/2007 Outpatient Historical [facility]- [address] [phone] Rafal Seth DO NO ADDRESS ON FILE Acute Sinusitis, Unspecified (Primary Dx); Embolism and Thrombosis of Deep Vessels of Proximal Lower Extremity (CMS/HCC); Asymptomatic Varicose Veins Social History Tobacco Use Types Packs/Day Years Used Date Smoking Tobacco: Never Assessed Sex and Gender Information Value Date Recorded Sex Assigned at Not on file Legal 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 Gender Identity Not on file Sexual Orientation Not on file documented as of this encounter Plan of Treatment Not on file documented as of this encounter Visit Diagnoses Diagnosis Acute sinusitis, unspecified- Primary Acute venous embolism and thrombosis of deep vessels of proximal lower extremity (CMS/HCC) Acute venous embolism and thrombosis of deep vessels of proximal lower extremity Asymptomatic varicose veins Uncomplicated varicose veins documented in this encounter Care Teams Fuel Conversion Technician Relationship Specialty Start Date End Date Francisco Vargas MD [address] [facility] [address] [place] [address] PCP - General Family Practice 10/28/20 documented as of this encounter
--- OUTSIDE RECORDS SUMMARY | 2024-11-05 15:49 | XMS_ITS | Encounter Summary ---
Author Organization [facility] Address [address] [place] [address] Care Team Providers Care Buffer Copper Name Role Phone Francisco Vargas MD Primary Care Provider +1 [phone] Encounter Details Date Type Department Care Team (Late st Contact Info) Description 10/08/1998 Outpatient Historical [facility] Medicine- [facility] [address] [place] [phone] Social History Tobacco Use Types Packs/Day Years Used Date Smoking Tobacco: Never Assessed Sex and Gender Information Value Date Recorded Sex Assigned at Not on file Legal 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
--- OUTSIDE RECORDS SUMMARY | 2024-11-05 15:49 | XMS_ITS | Encounter Summary ---
Author Organization [facility] Address [address] [place] [address] Care Team Providers Care Production Support Analyst Name Role Phone Francisco Vargas MD Primary Care Provider +1 -[phone] Encounter Details Date Type Department Care Team (Latest Contact Info) Description 10/07/2004 Outpatient Historical [facility] [address] [place] [phone] Dung Benson MD [address] [facility] [address] [place] [phone] DIABETES MELLITUS TYPE II-UNCOMPL (CMS/HCC) (Primary Dx); ORCHITIS/EPIDIDYMIT NOS Social History Tobacco Use Types Packs/Day Years Used Date Smoking Tobacco: Never Assessed Sex and Gender Information Value Date Recorded Sex Assigned at Not on file 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 Gender Identity Not on file Sexual Orientation Not on file documented as of this encounter Plan of Treatment Not on file documented as of this encounter Visit Diagnoses Diagnosis Type II or unspecified type diabetes mellitus without mention of complication, not stated as uncontrolled- Primary Orchitis and epididymitis, unspecified documented in this encounter Care Teams Production Support Analyst Relationship Specialty Start Date End Date Francisco Vargas MD [address] [facility] [address] [place] [address] PCP - General Family Practice 10/28/20 documented as of this encounter
--- OUTSIDE RECORDS SUMMARY | 2024-11-05 15:49 | XMS_ITS | Encounter Summary ---
Author Organization [facility] Address [address] [place] [address] Care Team Providers Care Residential Specialist Name Role Phone Francisco Vargas MD Primary Care Provider +1 [phone] Encounter Details Date Type Department Care Team (Late st Contact Info) Description 12/07/2006 Outpatient Historical [facility] Medicine- [facility] [address] [place] [phone] Social History Tobacco Use Types Packs/Day Years Used Date Smoking Tobacco: Never Assessed Sex and Gender Information Value Date Recorded Sex Assigned at Not on file 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
--- OUTSIDE RECORDS SUMMARY | 2024-11-05 15:49 | XMS_ITS | Encounter Summary ---
Author Organization [facility] Address [address] [place] [address] Care Team Providers Care Operations And Maintenance Manager Name Role Phone Francisco Vargas MD Primary Care Provider +1 -[phone] Encounter Details Date Type Department Care Team (Late st Contact Info) Description 08/24/2006 Outpatient Historical [facility] Medicine- [facility] [address] [place] [phone] Social History Tobacco Use Types Packs/Day Years Used Date Smoking Tobacco: Never Assessed Sex and Gender Information Value Date Recorded Sex Assigned at Not on file Legal 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
--- OUTSIDE RECORDS SUMMARY | 2024-11-05 15:49 | XMS_ITS | Encounter Summary ---
Author Organization [facility] Address [address] [place] [address] Care Team Providers Care Sand Sifter Name Role Phone Francisco Vargas MD Primary Care Provider +1 [phone] Encounter Details Date Type Department Care Team (Latest Contact Info) Description 09/09/2004 Outpatient Historical [facility]- [address] [phone] Dung Benson MD [address] [phone] HYPERTENSION NOS (Primary Dx) Social History Tobacco Use Types Packs/Day Years Used Date Smoking Tobacco: Never Assessed Sex and Gender Information Value Date Recorded Sex Assigned at Not on file Legal Sex Male 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 Gender Identity Not on file Sexual Orientation Not on file documented as of this encounter Plan of Treatment Not on file documented as of this encounter Procedures Procedure Name Priority Date/Time Associated Diagnosis Comments VITAMIN B12 AND FOLATE Routine 09/09/2004 9:30 AM CDT LIPID PANEL Routine 09/09/2004 9:30 AM CDT BASIC METABOLIC PANEL Routine 09/09/2004 9:30 AM CDT documented in this encounter Results * (ABNORMAL) VITAMIN B12 AND FOLATE (09/09/2004 9:30 AM CDT) VITAMIN B12 >1000(H) 200 - 925 ng/dL INTERFACE SYSTEM FOLATE, SERUM >20.00 2.76 - 20.00 ng/dL INTERFACE SYSTEM 09/09/2004 9:30 AM CDT Result Maribell Benson MD CHEMISTRY ORDERABLES Final Result Performing Organization Address [facility] Phone Number INTERFACE SYSTEM Refer to clinic/hospital department * (ABNORMAL) LIPID PANEL (09/09/2004 9:30 AM CDT) CHOLESTEROL 165 75 - 200 mg/dL INTERFACE SYSTEM TRIGLYCERIDE 208(H) 0 - 200 mg/dL INTERFACE SYSTEM CALCULATED TOTAL CHOLESTEROL TO HDL RATIO 4.34 3.43 - 4.97 INTERFACE SYSTEM HDL 38(L) 40 - 60 mg/dL INTERFACE SYSTEM LDL CALCULATED 85 0 - 130 mg/dL INTERFACE SYSTEM 09/09/2004 9:30 AM CDT Result Maribell Benson MD CHEMISTRY ORDERABLES Final Result Performing Organization Address [facility] Phone Number INTERFACE SYSTEM Refer to clinic/hospital department * (ABNORMAL) BASIC METABOLIC PANEL (09/09/2004 9:30 AM CDT) GLUCOSE 218(H) 70 - 110 mg/dL INTERFACE SYSTEM BUN 18 9 - 20 mg/dL INTERFACE SYSTEM CREATININE 1.4 0.7 - 1.5 mg/dL INTERFACE SYSTEM SODIUM 137 136 - 145 mEq/L INTERFACE SYSTEM POTASSIUM 4.0 3.5 - 5.0 mEq/L INTERFACE SYSTEM CHLORIDE 105 95 - 110 mEq/L INTERFACE SYSTEM CO2 20(L) 22 - 32 mmol/l INTERFACE SYSTEM ANION GAP 16 9 - 20 mEq/L INTERFACE SYSTEM OSMOLALITY, CALCULATED 291 275 - 295 mOsm/Kg INTERFACE SYSTEM CALCIUM 9.1 8.4 - 10.5 mg/dL INTERFACE SYSTEM 09/09/2004 9:30 AM CDT Result Maribell Benson MD CHEMISTRY ORDERABLES Final Result Performing Organization Address City/[facility] Phone Number INTERFACE SYSTEM Refer to clinic/hospital department documented in this encounter Visit Diagnoses Diagnosis Unspecified essential hypertension- Primary documented in this encounter Care Teams Sand Sifter Relationship Specialty Start Date End Date Francisco Vargas MD [address] [address] PCP - General Family Practice 10/28/20 documented as of this encounter
--- OUTSIDE RECORDS SUMMARY | 2024-11-05 15:49 | XMS_ITS | Encounter Summary ---
Author Organization [facility] Address [address] [place] [address] Care Team Providers Care Thermostat Repairer Name Role Phone Francisco Vargas MD Primary Care Provider +1 [phone] Encounter Details Date Type Department Care Team (Latest Contact Info) Description 01/04/2007 Outpatient Historical [facility] [address] [place] [address] [place] [address] Rafal Seth, NO ADDRESS ON FILE Other Seborrheic Keratosis (Primary Dx) Social History Tobacco Use Types Packs/Day Years Used Date Smoking Tobacco: Never Assessed Sex and Gender Information Value Date Recorded Sex Assigned at Not on file Legal 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
--- OUTSIDE RECORDS SUMMARY | 2024-11-05 15:49 | XMS_ITS | Encounter Summary ---
Author Organization [facility] Address [address] [place] [address] Care Team Providers Care Body Finisher Name Role Phone Francisco Vargas MD Primary Care Provider +1 [phone] Encounter Details Date Type Department Care Team (Latest Contact Info) Description 09/16/2004 Outpatient Historical [facility]- [address] [phone] Dung Benson MD [address] [address] ANEMIA NOS (Primary Dx) Social History Tobacco Use Types Packs/Day Years Used Date Smoking Tobacco: Never Assessed Sex and Gender Information Value Date Recorded Sex Assigned at Not on file Legal 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 Gender Identity Not on file Sexual Orientation Not on file documented as of this encounter Plan of Treatment Not on file documented as of this encounter Procedures Procedure Name Priority Date/Time Associated Diagnosis Comments VITAMIN B12 AND FOLATE Routine 09/16/2004 9:05 AM CDT GLUCOSE LEVEL Routine 09/16/2004 9:05 AM CDT documented in this encounter Results * (ABNORMAL) GLUCOSE LEVEL (09/16/2004 9:05 AM CDT) GLUCOSE 140(H) 70 - 110 mg/dL INTERFACE SYSTEM 09/16/2004 9:05 AM CDT us Dung Benson MD CHEMISTRY ORDERABLES Final Result Performing Organization Address City/[facility] Co de Phone Number INTERFACE SYSTEM Refer to clinic/hospital department * (ABNORMAL) VITAMIN B12 AND FOLATE (09/16/2004 9:05 AM CDT) VITAMIN B12 >1000(H) 200 - 925 ng/dL INTERFACE SYSTEM FOLATE, SERUM >20.00 2.76 - 20.00 ng/dL INTERFACE SYSTEM 09/16/2004 9:05 AM CDT us Dung Benson MD CHEMISTRY ORDERABLES Final Result Performing Organization Address [facility] Phone Number INTERFACE SYSTEM Refer to clinic/hospital department documented in this encounter Visit Diagnoses Diagnosis Anemia, unspecified- Primary documented in this encounter Care Teams Body Finisher Relationship Specialty Start Date End Date Francisco Vargas MD [address] [phone] PCP - General Family Practice 10/28/20 documented as of this encounter
--- OUTSIDE RECORDS SUMMARY | 2024-11-05 15:49 | XMS_ITS | Encounter Summary ---
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
--- OUTSIDE RECORDS SUMMARY | 2024-11-05 15:49 | XMS_ITS | Encounter Summary ---
Author Organization [facility] Address [address] [place] [address] Care Team Providers Care Contact Finger Assembler Name Role Phone Francisco Vargas MD Primary Care Provider +1 -[phone] Encounter Details Date Type Department Care Team (Late st Contact Info) Description 04/11/2007 Outpatient Historical [facility] Medicine- [address] [phone] Reynold Mejia MD NO ADDRESS ON FILE Social History Tobacco Use Types Packs/Day Years Used Date Smoking Tobacco: Never Assessed Sex and Gender Information Value Date Recorded Sex Assigned at Not on file Legal Sex Male 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 EXAMINER Gender Identity Not on file Sexual Orientation Not on file documented as of this encounter Plan of Treatment Not on file documented as of this encounter Visit Diagnoses Not on filedocumented in this encounter Care Teams Contact Finger Assembler Relationship Specialty Start Date End Date Francisco Vargas MD [address] [facility] [address] [place] [address] PCP - General Family Practice 10/28/20 documented as of this encounter
--- OUTSIDE RECORDS SUMMARY | 2024-11-05 15:49 | XMS_ITS | Encounter Summary ---
Author Organization [facility] Address [address] [place] [address] Care Team Providers Care Script Artist Name Role Phone Francisco Vargas MD Primary Care Provider +1 -[phone] Encounter Details Date Type Department Care Team (Late st Contact Info) Description 04/19/2007 Outpatient Historical [facility] Cardiac Thoracic [facility] [place] [address] [place] [address] Rafal Mina MD [address] [place] [address] Social History Tobacco Use Types Packs/Day Years Used Date Smoking Tobacco: Never Assessed Sex and Gender Information Value Date Recorded Sex Assigned at Not on file Legal Sex Male 7: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
--- OUTSIDE RECORDS SUMMARY | 2024-11-05 15:49 | XMS_ITS | Encounter Summary ---
Author Organization [facility] Address [address] [place] [address] Care Team Providers Care Plugman Name Role Phone Francisco Vargas MD Primary Care Provider +1 -[phone] Encounter Details Date Type Department Care Team (Latest Contact Info) Description 10/10/2006 Outpatient Historical [facility] EMBEDDED DEVELOPER, Family Medicine and Maternal- Medicine 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
--- OUTSIDE RECORDS SUMMARY | 2024-11-05 15:49 | XMS_ITS | Encounter Summary ---
Author Organization [facility] Address [address] [place] [address] Care Team Providers Care Retail Sales Consultant Name Role Phone Francisco Vargas MD Primary Care Provider +1 -[phone] Encounter Details Date Type Department Care Team (Late st Contact Info) Description 05/01/[address] 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
--- OUTSIDE RECORDS SUMMARY | 2024-11-05 15:49 | XMS_ITS | Encounter Summary ---
Author Organization [facility] Address [address] [place] [address] Care Team Providers Care Media Professional Name Role Phone Unavailable Primary Care Provider Unavailabl e Encounter Details Date Type Department Care Team (Late st Contact Info) Description 09/15/2015 Orders Only [facility] Radiology [address] [facility] [place], [place] [address] System, Provider Not In, [address] [facility] [place] [address] Social History Tobacco Use Types Packs/Day Years Used Date Smoking Tobacco: Never Assessed Sex and Gender Information Value Date Recorded Sex Assigned at Not on file Legal Sex Male 8:16 PM CDT Gender Identity Not on file Sexual Orientation Not on file documented as of this encounter Plan of Treatment Not on file documented as of this encounter Procedures Procedure Name Priority Date/Time Associated Diagnosis Comments OUTSIDE IMAGES 09/15/2015 11:08 AM CDT documented in this encounter Results * Outside Images (09/15/2015 11:08 AM CDT) Anatomical Region Laterality Modality N/A Radiographic Jolie ging 09/15/2015 11:0 8 AM CDT Narrative 09/15/2015 11:08 AM CDT Historic images from [facility] exist and can be viewed by using the hyperlink to access [employer] pacs: CT AP W/ W/O CONTRAST Procedure Note System, Provider Not In, - 05/29/2020 Historic images from [facility] exist and can be viewed byusing the hyperlink to access [employer] pacs: CT AP W/ W/O CONTRAST us Provider Not In System MD [facility] OR DERABLES Final Result documented in this encounter Visit Diagnoses Not on filedocumented in this encounter
--- OUTSIDE RECORDS SUMMARY | 2024-11-05 15:49 | XMS_ITS | Encounter Summary ---
Author Organization [facility] Address [address] [place] [address] Care Team Providers Care Harness Fitter Name Role Phone Francisco Vargas MD Primary Care Provider +1 -[phone] Encounter Details Date Type Department Care Team (Latest Contact Info) Description 10/24/2006 Outpatient Historical [facility] Medicine [address] [phone] Rafal Seth DO NO ADDRESS ON FILE Other Testicular Hypofunction (Primary Dx) Social History Tobacco Use Types Packs/Day Years Used Date Smoking Tobacco: Never Assessed Sex and Gender Information Value Date Recorded Sex Assigned at Not on file Legal 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
--- OUTSIDE RECORDS SUMMARY | 2024-11-05 15:49 | XMS_ITS | Encounter Summary ---
Author Organization [facility] Address [address] [place] [address] Care Team Providers Care Accounting Clerk Name Role Phone Francisco Vargas MD Primary Care Provider +1 -[phone] Encounter Details Date Type Department Care Team (Latest Contact Info) Description 10/10/1998 Outpatient Historical [facility]- [address] [phone] Rafal Seth DO NO ADDRESS ON FILE Acute upper respiratory infections of unspecified site (Primary Dx); Unspecified essential hypertension Social History Tobacco Use Types Packs/Day Years Used Date Smoking Tobacco: Never Assessed Sex and Gender Information Value Date Recorded Sex Assigned at Not on file Legal Sex Male 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
--- OUTSIDE RECORDS SUMMARY | 2024-11-05 15:49 | XMS_ITS | Encounter Summary ---
Author Organization [facility] Address [address] [place] [address] Care Team Providers Care Photonics Engineer Name Role Phone Francisco Vargas MD Primary Care Provider +1 -[phone] Encounter Details Date Type Department Care Team (Latest Contact Info) Description 01/11/2007 Outpatient Historical [facility] Medicine [place] [address] [phone] Rafal Seth DO NO ADDRESS ON FILE DM w/o Complication Type II (CMS/HCC) (Primary Dx) Social History Tobacco Use Types Packs/Day Years Used Date Smoking Tobacco: Never Assessed Sex and Gender Information Value Date Recorded Sex Assigned at Not on file Legal Sex Male 7:05 AM GLASS FURNACE TENDER Gender Identity Not on file Sexual Orientation Not on file documented as of this encounter Plan of Treatment Not on file documented as of this encounter Visit Diagnoses Diagnosis Type II or unspecified type diabetes mellitus without mention of complication, not stated as uncontrolled- Primary documented in this encounter Care Teams Photonics Engineer Relationship Specialty Start Date End Date Francisco Vargas MD [address] [phone] PCP - General Family Practice 10/28/20 documented as of this encounter
--- OUTSIDE RECORDS SUMMARY | 2024-11-05 15:49 | XMS_ITS | Encounter Summary ---
Author Organization [facility] Address [address] [place] [address] Care Team Providers Care Digital Composer Name Role Phone Francisco Vargas MD Primary Care Provider [phone] Encounter Details Date Type Department Care Team (Late st Contact Info) Description 05/16/2024 Lab Requisition [facility] [place] [address] [address] Elaine Martinez, [facility] [address] [place] [id number] Muscle weakness (generalized) Social History Tobacco Use Types Packs/Day Years Used Date Smoking Tobacco: Never Smokeless Tobacco: Never Alcohol Use Standard Drinks/Week Comments No 0 (1 standard drink = 0.6 oz pur e alcohol) Financial Resource Strain Answer Date R ecorded How hard is it for you to pa y for the very basics like food, housing, medical care, and heating? Patient declined 07/07/2022 Food Insecurity Answer Date Recorded In the past 12 months, have you worried that your food would run out before you had money to buy more? Patient declined 2022 In the past 12 months, did y ou run out of food and didn't have money to buy more? Patient declined 07/07/2022 Transportation Needs Answer Date Record ed In the past 12 months, has l ack of transportation kept you from medical appointments or from getting medications? Patient declined 07/07/2022 Lack of Transportation (Non-Medical) Not on file 07/07/2022 Sex and Gender Information Value Date Recorded Sex Assigned at Not on file Legal Sex Male 3:08 AM SALES TRAINER Gender Identity Not on file Sexual Orientation Not on file documented as of this encounter Plan of Treatment Upcoming Encounters Date Type Department Care Team (Late st Contact Info) Description 02/26/2025 10:40 AM CDT Office Visit [facility] [address] [phone] Francisco Vargas MD [address] [phone] 05/30/2025 9:00 AM SALES TRAINER Office Visit [facility] [address] [place] [address] Francisco Vargas MD [address] [place] [address] documented as of this encounter Procedures Procedure Name Priority Date/Time Associated Diagnosis Comments CBC WITH DIFFERENTIAL Stat 05/16/2024 12:00 PM SALES TRAINER Muscle weakness (generalized) TROPONIN Stat 05/16/2024 12:00 PM SALES TRAINER Muscle weakness (generalized) BRAIN NATRIURETIC PEPTIDE, BNP OR PROBNP Stat 05/16/2024 12:00 PM SALES TRAINER Muscle weakness (generalized) MAGNESIUM LEVEL Stat 05/16/2024 12:00 PM SALES TRAINER Muscle weakness (generalized) COMPREHENSIVE METABOLIC PANEL Stat 05/16/2024 12:00 PM SALES TRAINER Muscle weakness (generalized) documented in this encounter Results * MAGNESIUM LEVEL (05/16/2024 12:00 PM SALES TRAINER) MAGNESIUM 2.0 1.6 - 2.4 mg/dL 05/16/2024 12:40 PM SALES TRAINER [facility] Blood Collection / Unknown 05/16/2024 12:00 PM SALES TRAINER 05/16/2024 12:04 PM SALES TRAINER us Elaine Martinez MANAGER CLINICAL PHARMACY CHEMISTRY ORDERABLES Fin al Result [facility] DUC # [id number] [address] [place] [address] * (ABNORMAL) COMPREHENSIVE METABOLIC PANEL (05/16/2024 12:00 PM SALES TRAINER) SODIUM 134(L) 136 - 145 mmol/L 05/16/2024 12:40 PM [facility] POTASSIUM 3.9 3.5 - 5.1 mmol/L 05/16/2024 12:40 PM [facility] CHLORIDE 98 98 - 107 mmol/L 05/16/2024 12:40 PM [facility] CO2 25 22 - 29 mmol/L 05/16/2024 12:40 PM [facility] CALCIUM 9.5 8.8 - 10.2 mg/dL 05/16/2024 12:40 PM [facility] BUN 16 8 - 23 mg/dL 05/16/2024 12:40 PM [facility] CREATININE 0.94 0.67 - 1.17 mg/dL 05/16/2024 12:40 PM [facility] Comment:The GFR result is no t clinically significant on patients <18 or >70 years of age. GLUCOSE 297(H) 74 - 99 mg/dL 05/16/2024 12:40 PM [facility] TOTAL PROTEIN 7.5 6.6 - 8.7 g/dL 05/16/2024 12:40 PM [facility] ALBUMIN 4.2 3.5 - 5.2 g/dL 05/16/2024 12:40 PM [facility] BILIRUBIN TOTAL 0.6 <=1.2 mg/dL 05/16/2024 12:40 PM [facility] ALKALINE PHOSPHATASE 155(H) 40 - 129 U/L 05/16/2024 12:40 PM [facility] AST 21 10 - 50 U/L 05/16/2024 12:40 PM [facility] ALT 21 10 - 50 U/L 05/16/2024 12:40 PM [facility] GFR >60 mL/min/1.7 3 sq meter 05/16/2024 12:40 PM [facility] Comment:eGFR calculated with 2020 CKD-EPI equation. Vegetarian diet, extremely high or low muscle mass, and may affect results. Cystatin C with Glomerular Filtration Rate is a suitable alternative for these patients. ANION GAP 11(L) 12 - 20 mmol/L 05/16/2024 12:40 PM [facility] Blood Collection / Unknown 05/16/2024 12:00 PM SALES TRAINER 05/16/2024 12:04 PM SALES TRAINER Elaine Martinez [facility] CHEMISTRY ORDERABLES Fin al Result Performing Organization Address City/State/[facility] [[email or web address]] Co de Phone Number [facility] CLIA # [id number] [address] [place] [phone] * BRAIN NATRIURETIC PEPTIDE, BNP OR PROBNP (05/16/2024 12:00 PM SALES TRAINER) PROBNP, N TERMINAL 247 0 - 450 pg/mL 05/16/2024 12:40 PM [facility] Comment: INTERPRETIVE COMMENT based on diagnosis: Diagnostic NT pro-BNP cutoffs for Heart Failure in the absence of renal failure is suggested for the following ranges <75 years: <125 pg/mL >=75 years: <450 pg/mL Exclusionary rule out cut-point for Acute Decompensated Heart Failure(ADHF) All ages: <300 pg/mL Diagnostic NT pro-BNP cutoffs for Acute Decompensated Heart Failure(ADHF) in the absence of renal failure is suggested for the following ages <50 years: > 450 pg/mL 50-75 years: > 900 pg/mL >75 years: >1800 pg/mL Blood Collection / Unknown 05/16/2024 12:00 PM SALES TRAINER 05/16/2024 12:04 PM SALES TRAINER Elaine Martinez [facility] CHEMISTRY ORDERABLES Fin al Result [facility] CLIA # [id number] [address] [place] [id number] * TROPONIN (05/16/2024 12:00 PM SALES TRAINER) TROPONIN T, 5TH GEN 15 <=15 ng/L 05/16/2024 12:39 PM [facility] Blood Collection / Unknown 05/16/2024 12:00 PM SALES TRAINER 05/16/2024 12:04 PM SALES TRAINER Narrative [facility] - 05/16/2024 12:39 PM SALES TRAINER Troponin Detectable but normal range. Elaine Martinez [facility] CHEMISTRY ORDERABLES Fin al Result Performing Organization Address [facility]/ZIP Co de Phone Number [facility] CLIA # [id number] [address] [place] [phone] * (ABNORMAL) CBC WITH DIFFERENTIAL (05/16/2024 12:00 PM SALES TRAINER) Pathologist [facility] WBC 6.4 4.2 - 9.1 K/uL 05/16/2024 12:10 PM [facility] RBC 4.25(L) 4.63 - 6.08 M/uL 05/16/2024 12:10 PM [facility] HEMOGLOBIN 14.5 13.7 - 17.5 g/dL 05/16/2024 12:10 PM [facility] HEMATOCRIT 41.5 40.1 - 51.0 % 05/16/2024 12:10 PM [facility] MCV 97.6(H) 79.0 - 92.2 fL 05/16/2024 12:10 PM [facility] MCH 34.1(H) 25.7 - 32.2 pg 05/16/2024 12:10 PM [facility] MCHC 34.9 32.3 - 36.5 g/dL 05/16/2024 12:10 PM [facility] RDW 12.8 11.0 - 14.5 % 05/16/2024 12:10 PM [facility] RDW-STDEV 46.0 36.9 - 56.9 fL 05/16/2024 12:10 PM [facility] PLATELETS 202 130 - 400 K/uL 05/16/2024 12:10 PM [facility] MPV 9.5(L) 10.0 - 14.8 fL 05/16/2024 12:10 PM [facility] NEUTROPHILS 61 34 - 68 % 05/16/2024 12:10 PM [facility] LYMPHOCYTES 23 22 - 53 % 05/16/2024 12:10 PM [facility] MONOCYTES 10 5 - 12 % 05/16/2024 12:10 PM [facility] EOSINOPHILS 5 1 - 7 % 05/16/2024 12:10 PM [facility] BASOPHILS 1 0 - 1 % 05/16/2024 12:10 PM [facility] IMMATURE GRANULOCYTES 1 % 05/16/2024 12:10 PM [facility] NEUTROPHIL ABSOLUTE 3.92 1.78 - 5.38 K/uL 05/16/2024 12:10 PM [facility] LYMPHOCYTE ABSOLUTE 1.45 1.20 - 3.40 K/uL 05/16/2024 12:10 PM [facility] MONOCYTE ABSOLUTE 0.64 0.30 - 0.82 K/uL 05/16/2024 12:10 PM [facility] EOSINOPHIL ABSOLUTE 0.33 0.04 - 0.54 K/uL 05/16/2024 12:10 PM [facility] BASOPHILS ABSOLUTE 0.03 0.01 - 0.08 K/uL 05/16/2024 12:10 PM [facility] IMMATURE GRANULOCYTES ABSOLUTE 0.03 K/uL 05/16/2024 12:10 PM [facility] Blood Collection / Unknown 05/16/2024 12:00 PM SALES TRAINER 05/16/2024 12:04 PM SALES TRAINER Elaine Martinez MANAGER CLINICAL PHARMACY HEMATOLOGY ORDERABLES Fi nal Result [facility] CLIA # [id number] [address] [address] documented in this encounter Visit Diagnoses Diagnosis Muscle weakness (generalized) documented in this encounter Care Teams Digital Composer Relationship Specialty Start Date End Date Francisco Vargas MD [address] [address] PCP - General Family Practice 11/01/22 documented as of this encounter
--- OUTSIDE RECORDS SUMMARY | 2024-11-05 15:49 | XMS_ITS | Clinical Summary ---
Author Organization [facility] e Address [address] [facility] [place] [address] Care Team Providers Care Ski Top Trimmer Name Role Phone Francisco Vargas MD Primary Care Provider [phone] Allergies Active Allergy Reactions Criticality Noted Date Comments Gabapentin Abdominal Pain,Dizziness Low 07/21/2016 Pregabalin Dizziness Low 12/30/2017 Medications pyridoxine (VITAMIN B6) 100 mg Tablet Take 50 mg by mouth daily. 10/05/19 20 Active lancets Daily testing 100 Each 4 10/24/19 21 Active Insulin Roscoe, Disposable, (BD Ultra-Fine Short Pen Needle) 31 gauge x 5/16 Needle USE TO INJECT INSULIN DAILY 100 Each 5 09/29/19 23 Active Insulin Roscoe, Disposable, (BD Ultra-Fine Short Pen Needle) 31 gauge x 5/16 Needle USE TO INJECT INSULIN DAILY 100 Each 2 09/29/19 23 Active mometasone (ELOCON) 0.1 % CreamIndications:Ro sacea Apply to affected area daily. 50 Gram 5 02/04/20 23 Active Additional Information Patient not taking.Reported on 07/16/2024 ketoconazole (NIZORAL) 2 % Shampoo Apply 10 mL to wet scalp and brow, lather, leave on 3 minutes, and rinse; apply twice weekly for 4 weeks. 120 mL 1 02/04/20 23 Active Additional Information Patient not taking.Reported on 08/27/2024 amLODIPine (NORVASC) 5 mg tabletIndications:E ssential hypertension Take 1 Tablet (5 mg) by mouth daily. 100 Tablet 2 05/16/19 25 Active isosorbide mononitrate (IMDUR) 30 mg Extended Release 24 hour tabletIndications:C oronary atherosclerosis due to lipid rich plaque Take 1 Tablet (30 mg) by mouth daily. 90 Tablet 3 05/16/19 25 Active blood sugar diagnostic (True Metrix Glucose Test Strip) StripIndications:Ty pe 2 diabetes mellitus with diabetic polyneuropathy, with long-term current use of insulin ([facility]) CHECK BLOOD SUGAR DAILY 300 Strip 4 05/22/19 Active Additional Information Patient not taking.Reported on 07/16/2024 ALPRAZolam (XANAX) 0.25 mg tabletIndications:G AD (generalized anxiety disorder) Take 1 Tablet (0.25 mg) by mouth 2 times daily as needed for Anxiety. Dose adjustment 60 Tablet 5 05/29/19 25 Active lovastatin (MEVACOR) 20 mg tabletIndications:T ype 2 diabetes mellitus with diabetic polyneuropathy, with long-term current use of insulin ([facility]),Coronary atherosclerosis due to lipid rich plaque,PVD (peripheral vascular disease) TAKE 1 TABLET(20 MG) BY MOUTH DAILY WITH SUPPER 90 Tablet 3 05/29/19 25 Active clopidogreL (PLAVIX) 75 mg TabletIndications:C oronary atherosclerosis due to lipid rich plaque Take 1 Tablet (75 mg) by mouth daily. 90 Tablet 3 05/29/19 25 Active meclizine (ANTIVERT) 25 mg tablet Take 1 Tablet by mouth 3 times daily. 06/28/19 25 Active cholecalciferol 1,250 mcg (50,000 unit) Capsule Take 1 Capsule (50,000 Units) by mouth every 7 days. 12 Capsule 3 07/21/19 25 Active insulin glargine-yfgn 100 unit/mL pen syringe ADMINISTER 24 UNITS UNDER THE SKIN EVERY NIGHT AT BEDTIME 06/26/19 25 Active tamsulosin (FLOMAX) 0.4 mg capsuleIndications: BPH associated with nocturia Take 1 Capsule (0.4 mg) by mouth daily. 90 Capsule 1 08/28/19 25 Active insulin degludec (Tresiba FlexTouch U-100) 100 unit/mL pen syringe Inject 12 Units by subcutaneous injection 2 times daily. 3 mL 08/28/19 25 Active Active Problems Problem Noted Date Diagnosed Date Vitamin D deficiency 07/16/2024 Moderate aortic stenosis 05/29/2024 Frail elderly 11/29/2023 Testosterone deficiency 08/03/2021 Dependence on other enabling machines and device s 08/03/2021 Renal artery stenosis 10/15/2020 PVD (peripheral vascular disease) 10/15/2020 Dizziness 05/13/2020 CVD (cerebrovascular disease) 12/27/2019 Vertebral basilar insufficiency 12/27/2019 Acquired ichthyosis 08/09/2017 Essential hypertension 07/28/2017 Lumbar stenosis 07/28/2017 Osteoarthritis of spine with radiculopathy, lumb ar region 01/14/2017 Primary osteoarthritis of both hips 01/14/2017 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 05/05/2016 TAVARES (generalized anxiety disorder) 06/03/2009 Cerebrovascular disease 02/27/2009 Overview (08/28/2020): MRI (02/07): 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 Type 2 diabetes mellitus wit h diabetic polyneuropathy, with long-term current use of insulin 08/21/2008 Overview (08/28/2020): A1: 5.6 (05/11); 5.1 (12/08); 5.5 (08/08) Microalbumin: 2/10 (Normal) Hypogonadism male 02/13/2008 Resolved Problems Problem Noted Date Diagnosed Date Resolved Date Preoperative general physical examination 07/28/2017 10/15/2020 Encounters Date Type Department Care Team Description 10/16/2024 External Device Data STL ABSTRACTION Provider, Abstract 10/09/2024 Abstract [facility] [address] [phone] Provider, Abstract 09/19/2024 10:57 AM CDT - 09/19/2024 11:59 PM CDT Hospital Encounter [facility] [address] [phone] Elaine Martinez FNP Discharge Disposition: Home or Self Care 08/29/2024 Results Follow-Up [facility] [address] [phone] Elaine Martinez FNP POC URINALYSIS DIPSTICK AUTOMATED, VITAMIN D 25 HYDROXY, MRI BRAIN W WO CONTRAST 08/27/2024 11:00 AM CDT Office Visit [facility] [address] [phone] Elaine Martinez, AN BPH associated with nocturia (Primary Dx); Confusion; Light headedness; Generalized muscle weakness; Lacunar infarction (CMS/HCC); Vitamin D deficiency from Last 3 Months Immunizations Immunization Administration Dates Next Due (PNEUMOVAX 23)(50 YRS UP) PN EUMOCOCCAL POLYSACCHARIDE (PPV23) 0.5 ML, IM 04/22/2009 (PREVNAR 13)(6 WKS UP) PNEUM OCOCCAL CONJUGATE (PCV13) 0.5 ML, IM 01/25/2017 INFLUENZA VACCINE HIGH DOSE QUADRIVALENT 65 YR UP PF IM 02/16/2024,02/25/2022,02/25/2021,02/12,02/01/2018,01/25/2017 INFLUENZA VACCINE QUADRIVALE NT ADJ 65 YR UP PF IM 02/03/2023 Influenza Seasonal Unspecifi ed Formulation IM 02/14/2020,01/30/2018,02/09/2016,01/30,01/30/2007,02/28/2006 Influenza Vaccine High Dose 65+ Yrs IM 9,02/04/2014 Influenza Vaccine Split 3+ Yrs IM 01/28/2009 Influenza Vaccine Tri Adjuva nted 65+ PF IM 02/01/2018 Family History Medical History Relation Name Comments Cancer Brother 1 Cancer Brother 2 Diabetes Brother 3 Healthy Brother 4 Aldo Diabetes Father Respiratory Disease Father smoking hx Hypertension Mother Other Sister fibromyalgia Relation Name Status Comments Brother 1 Brother 2 Brother 3 Alive Brother 4 Aldo Alive Brother 5 Alive Father Mother Sister Alive Social History Tobacco Use Types Packs/Day Years Used Date Smoking Tobacco: Never Smokeless Tobacco: Never Tobacco Cessation:Counseling Given: No Alcohol Use Standard Drinks/Week Comments No 0 [...] on file Legal 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 Gender Identity Not on file Sexual Orientation Not on file Last Filed Vital Signs Vital Sign Reading Time Taken Comments Blood Pressure 109/70 08/27/2024 10:55 AM CDT Pulse 87 08/27/2024 10:55 AM CDT Temperature 36.4 C (97.5 F) 08/27/2024 10:55 AM CDT Respiratory Rate 22 08/27/2024 10:55 AM CDT Oxygen Saturation 96% 08/27/2024 10:55 AM CDT Inhaled Oxygen Concentration - - Weight 79.5 kg (175 lb 3.2 oz) 08/27/2024 10:55 AM CDT Height 177.8 cm (5' 10 ) 08/27/2024 10:55 AM CDT Body Mass Index 25.14 08/27/2024 10:55 AM CDT Plan of Treatment Upcoming Encounters Date Type Department Care Team (Late st Contact Info) Description 02/26/2025 10:40 AM CDT Office Visit [facility] [address] [phone] Francisco Vargas MD [address] [phone] 05/30/2025 9:00 AM SOFTWARE PROJECT ENGINEER Office Visit [facility] [address] [place] [address] Francisco Vargas MD [address] [phone] Health Maintenance Due Date Last Done Comments DTAP/TDAP/TD VACCINES (1 - Tdap) 1957 ZOSTER VACCINE (1 of 2) 1988 RSV VACCINE (60+ or ) (1 - 1-dose 75+ series) 2013 DIABETES ANNUAL RETINAL EXAM 09/18/2021, 10/23/2018, 10/23/2018, Additional history exists COVID-19 Vaccine (4 - 2023-2 5 season) 2024 03/19/2021, 07/07/2020, 06/06/2020 DIABETES HBA1C Q 6 MONTHS 11/13/20242024, 03/08/2024, 11/21/2023, Additional history exists DIABETES MICROALBUMIN ANNUAL SCREEN 11/20/2024 11/21/2023, 12/06/2022, 07/07/2022, Additional history exists INFLUENZA VACCINE (#1) 2024 , 02/03/2023, 02/25/2022, Additional history exists DIABETES: A1C (Auto Order) 05/16/202505/16, 03/08/2024, 11/21/2023, Additional history exists LDL CHOLESTEROL ANNUAL 05/16/2025 , 12/06/2022, 08/03/2021, Additional history exists DIABETES ANNUAL FOOT EXAM 05/29/20252024, 11/21/2023, 06/24/2020, Additional history exists Traditional Medicare (ACO) A nnual Wellness Visit 05/30/2025 05/29/2024, 07/07/2022 PNEUMOCOCCAL VACCINE 50+ YEARS Completed 01/25/2017 , 04/22/2009 Medical Devices Implanted Type Area Project Inspector Device Identifier Shelf Expiration Date Model / Serial / Lot Hemostatic Gelfoam Powder 1gm [id number] - [id number] Implanted:Qty: 1 on 08/05/2017 by Mahin Sullivan MD Hemostatic N/A: Back [employer] 03/01/2020 [id number] / / [id number] Procedures Procedure Name Priority Date/Time Associated Diagnosis Comments MRI BRAIN W WO CONTRAST Routine 09/19/2024 11:20 AM CDT Confusion Light headedness Generalized muscle weakness Lacunar infarction (CMS/HCC) POC URINALYSIS DIPSTICK AUTOMATED Routine 08/27/2024 11:52 AM CDT Confusion Light headedness VITAMIN D 25 HYDROXY Routine 08/27/2024 11:45 AM CDT Vitamin D deficiency LIPID PANEL Routine 05/16/2024 12:00 PM SOFTWARE PROJECT ENGINEER Coronary atherosclerosis due to lipid rich plaque HEMOGLOBIN A1C Routine 05/16/2024 12:00 PM SOFTWARE PROJECT ENGINEER Type 2 diabetes mellitus with diabetic polyneuropathy, with long-term current use of insulin (CMS/HCC) MICROALBUMIN/CREAT ININE RATIO, RANDOM UR Routine 11/21/2023 2:42 PM CDT Type 2 diabetes mellitus with diabetic polyneuropathy, with long-term current use of insulin (CMS/HCC) DIABETES EYE EXAM Routine 09/18/2020 from Last 3 Months or Most Recently Relevant to Health Maintenance Results * MRI BRAIN W WO CONTRAST (09/19/2024 11:20 AM CDT) Anatomical Region Laterality Modality Head Magnetic Resonan ce 09/19/2024 11:2 0 AM CDT Impressions 09/19/2024 1:02 PM CDT IMPRESSION: Please see below. MRI of the Brain With and Without Contrast Date: 09/19/2024 11:20 AM Reason For Exam: Mental status change, unknown cause. Diagnosis: Confusion; Light headedness; Generalized muscle weakness; Lacunar infarction (CMS/HCC). Technique: Multiplanar, multisequence MR images were obtained through the brain prior to and following intravenous contrast (GADOBENATE DIMEGLUMINE 529 MG/ML(0.1 MMOL/0.2 ML) INTRAVENOUS SOLUTION Given:17 mL). Comparison: January 18, 2020. FINDINGS: Midline structures are stable. Mild diffuse corpus callosal thinning is present in association with moderate global volume loss. Low-grade leukoaraiosis and several chronic deep brain and brainstem lacunar infarcts again noted underlying. Also multiple tiny chronic embolic or social worker masters ischemic insults in the cerebelli. No diffusionopathy, hemorrhage or mass lesion. Major intracranial arterial flow voids are preserved. Orbits, paranasal sinuses and temporal bones grossly unremarkable. IMPRESSION: No acute pathology or structural lesion. Largely stable moderate volume loss and deep brain chronic ischemic changes as described. Narrative Procedure Note Dmitri Leon DO - 09/19/2024 IMPRESSION: Please see below. MRI of the Brain With and Without Contrast Date: 09/19/2024 11:20 AM Reason For Exam: Mental status change, unknown cause. Diagnosis: Confusion; Light headedness; Generalized muscle weakness; Lacunar infarction (CMS/HCC). Technique: Multiplanar, multisequence MR images were obtained through the brain prior to and following intravenous contrast (GADOBENATE DIMEGLUMINE 529 MG/ML(0.1 MMOL/0.2 ML) INTRAVENOUS SOLUTION Given:17 mL). Comparison: January 18, 2020. FINDINGS: Midline structures are stable. Mild diffuse corpus callosal thinning is present in association with moderate global volume loss. Low-grade leukoaraiosis and several chronic deep brain and brainstem lacunar infarcts again noted underlying. Also multiple tiny chronic embolic or social worker masters ischemic insults in the cerebelli. No diffusionopathy, hemorrhage or mass lesion. Major intracranial arterial flow voids are preserved. Orbits, paranasal sinuses and temporal bones grossly unremarkable. IMPRESSION: No acute pathology or structural lesion. Largely stable moderate volume loss and deep brain chronic ischemic changes as described. Elaine Martinez [facility] MR ORDERABLES Final Re sult * (ABNORMAL) POC URINALYSIS DIPSTICK AUTOMATED (08/27/2024 11:52 AM CDT) COLOR UA POC Yellow Pale to Dark Yellow [facility] CLARITY UA POC Clear Clear, Other [facility] GLUCOSE UA POC 2+(A) Negative, Normal [facility] BILIRUBIN UA POC Negative Negative [facility] KETONES UA POC Negative Negative [facility] SPECIFIC GRAVITY UA POC >=1.030 1.000 - 1.030 [facility] BLOOD UA POC Negative Negative [facility] PH UA POC 5.5 5.0 - 8.0 [facility] IC [facility] PROTEIN UA POC 1+(A) Negative [facility] UROBILINOGEN UA POC 0.2 <2.0 mg/dL [facility] NITRITE UA POC Negative Negative [facility] LEUKOCYTE ESTERASE UA POC Negative Negative [facility] KIT LOT NUMBER POC [phone] [facility] KIT EXP DATE POC [phone] [facility] Urine 08/27/2024 11:5 2 AM CDT Elaine Martinez R AND D LAB TECHNICIAN POINT OF CARE TESTING Fi nal Result [facility] CLIA# [id number] [address] [place] [address] * VITAMIN D 25 HYDROXY (08/27/2024 11:45 AM CDT) VITAMIN D, 25 OH, TOTAL 64 30 - 100 ng/mL [facility] Comment: Vitamin D Status 25-OH Vitamin D: Deficiency: <20 ng/mL Insufficiency: 20 - 29 ng/mL Optimal: > or = 30 ng/mL For 25-OH Vitamin D testing on patients on D2-supplementation and patients for whom quantitation of D2 and D3 fractions is required, the QuestAssureD() 25-OH VIT D, (D2,D3), LC/MS/MS is recommended: order code 03312 (patients >2yrs). See Note 1 Note 1 For additional information, please refer to http://education.Treatful.Pacific Ethanol/faq/MTB594 (This link is being provided for informational/ educational purposes only.) Test Performed at: [facility] [address] [place] [address] Mariah Montano MD Blood 08/27/2024 11:4 5 AM CDT 08/28/2024 4:01 AM CDT us Elaine Zita Martinez [facility] CHEMISTRY ORDERABLES Fin al Result Performing Organization Address [facility]/ZIP Co de Phone Number [facility] [phone] [facility] [address] [address] * (ABNORMAL) HEMOGLOBIN A1C (05/16/2024 12:00 PM SOFTWARE PROJECT ENGINEER) HEMOGLOBIN A1C 6.9(H) <5.7 % of total Hgb [facility] Comment: For someone without known diabetes, a hemoglobin A1c value of 6.5% or greater indicates that they may have diabetes and this should be confirmed with a follow-up test. For someone with known diabetes, a value <7% indicates that their diabetes is well controlled and a value greater than or equal to 7% indicates suboptimal control. A1c targets should be individualized based on duration of diabetes, age, comorbid conditions, and other considerations. Currently, no consensus exists regarding use of hemoglobin A1c for diagnosis of diabetes for children. ESTIMATED AVERAGE GLUCOSE (MG/DL) 151 mg/dL [facility] ESTIMATED AVERAGE GLUCOSE (MMOL/L) 8.4 mmol/L [facility] Comment: Test Performed at: [facility] [address] [place] [address] Mariah Montano MD Blood 05/16/2024 12:0 0 PM SOFTWARE PROJECT ENGINEER 05/17/2024 6:37 AM SOFTWARE PROJECT ENGINEER Elaine Zita Martinez [facility] CHEMISTRY ORDERABLES Fin al Result Performing Organization Address [facility] Co de Phone Number [facility] [phone] [facility] [address] [place] [address] * (ABNORMAL) LIPID PANEL (05/16/2024 12:00 PM SOFTWARE PROJECT ENGINEER) CHOLESTEROL 112 <200 mg/dL [facility] HDL 40 > OR = 40 mg/dL [facility] TRIGLYCERIDE 199(H) <150 mg/dL [facility] LDL CALCULATED 45 mg/dL (calc) [facility] Comment: Reference range: <100 Desirable range <100 mg/dL for primary prevention; <70 mg/dL for patients with CHD or diabetic patients with > or = 2 CHD risk factors. LDL-C is now calculated using the Chandra calculation, which is a validated novel method providing better accuracy than the Friedewald equation in the estimation of LDL-C. Eric EDOUARD et al. ALEXSANDRA. 2013;310(19): 8012-7910 (http://education.Sysomos/faq/WER798) CHOL/HDL RATIO 2.8 <5.0 (calc) [facility] NON-HDL CHOLESTEROL 72 <130 mg/dL (calc) [facility] Comment: For patients with diabetes plus 1 major ASCVD risk factor, treating to a non-HDL-C goal of <100 mg/dL (LDL-C of <70 mg/dL) is considered a therapeutic option. Test Performed at: [email or web address] [id number] [place] [phone] Mariah Montano MD Blood 05/16/2024 12:0 0 PM SOFTWARE PROJECT ENGINEER 05/17/2024 6:37 AM SOFTWARE PROJECT ENGINEER Elaine Martinez [facility] CHEMISTRY ORDERABLES Fin al Result [facility] [phone] [facility] [address] [place] [address] * MICROALBUMIN/CREATININE RATIO, RANDOM UR (11/21/2023 2:42 PM CDT) Creatinine, Urine 195 20 - 320 mg/dL [facility] MICROALBUMIN, URINE 1.9 See Note: mg/dL [facility] Comment: Reference Range: Reference Range Not established MICROALBUMIN/CREAT RATIO, UR 10 <30 mg/g creat [facility] Comment: The ADA defines abnormalities in albumin excretion as follows: Albuminuria Category Result (mg/g creatinine) Normal to Mildly increased <30 Moderately increased 30-299 Severely increased > OR = 300 The ADA recommends that at least two of three specimens collected within a 3-6 month period be abnormal before considering a patient to be within a diagnostic category. Test Performed at: [facility] [address] [place] [address] Mariah Montano MD Urine URINE SPECIMEN OBTAINED BY CLEAN CATCH PROCEDURE / Unknown 11/21/2023 2:42 PM CDT 11/22/2023 3:16 AM CDT Mirella Nuria Brownpps R AND D LAB TECHNICIAN URINE ORDERABLES Final R esult [facility] [phone] [facility] [address] [place] [address] * DIABETES EYE EXAM (09/18/2020) Abstract Provider HEALTH MAINTENANCE Final Resul t from Last 3 Months or Most Recently Relevant to Health Maintenance Insurance MEDICARE PART A AND B OLD [employer] SUPP * Guarantor: CLINTON DURAN Account Type Relation to Patient Date of Phone Billing Address Personal/Family [address] [place] [address] RX [facility] Medicare Part D Care Teams Ski Top Trimmer Relationship Specialty Start Date End Date Francisco Vargas MD [address] [address] PCP - General Family Practice 11/01/22
--- OUTSIDE RECORDS SUMMARY | 2024-11-05 15:49 | XMS_ITS | Clinical Summary ---
Author Organization [facility] Address [address] [place] [address] Care Team Providers Care Waist Cutter Name Role Phone Unavailable Primary Care Provider Unavailabl e Social History Tobacco Use Types Packs/Day Years Used Date Smoking Tobacco: Never Assessed Sex and Gender Information Value Date Recorded Sex Assigned at Not on file Legal Sex Male 8:16 PM CDT Gender Identity Not on file Sexual Orientation Not on file Plan of Treatment Not on file
--- OUTSIDE RECORDS SUMMARY | 2024-11-05 15:49 | XMS_ITS | Encounter Summary ---
Author Organization [facility] Address [address] 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 Gender Identity Not on file Sexual Orientation Not on file documented as of this encounter Plan of Treatment Not on file documented as of this encounter Procedures Procedure Name Priority Date/Time Associated Diagnosis Comments VITAMIN B12 AND FOLATE Routine 12/18/2007 11:30 AM CDT T4 TOTAL Routine 12/18/2007 11:30 AM CDT LYME AB IGG/IGM Routine 12/18/2007 11:30 AM CDT RHEUMATOID FACTOR Routine 12/18/2007 11: 30 AM CDT ROXY SCREEN W/REFLEX Routine 12/18/2007 1 1:30 AM CDT documented in this encounter Results * T4 TOTAL (12/18/2007 11:30 AM CDT) T4 TOTAL 8.0 4.5 - 10.9 mcg/dl [facility] Blood specimen (specimen) 12/18/2007 11:30 AM CDT 12/18/2007 10:13 PM CDT us Rafal Seth DO CHEMISTRY ORDERABLES Final Resu lt Performing Organization Address [facility] de Phone Number INTERFACE SYSTEM Refer to clinic/hospital department [facility] CLIA# [id number] [address] [place] [address] * LYME AB IGG/IGM (12/18/2007 11:30 AM CDT) LYME ANTIBODY (EIA) See Sep Report [facility] Blood specimen (specimen) 12/18/2007 11:30 AM CDT 12/19/2007 7:26 AM CDT Narrative INTERFACE SYSTEM - 12/25/2007 10:43 AM CDT fx to [phone] us Rafal Seth DO CHEMISTRY ORDERABLES COM Final Result Performing Organization Address [facility] Phone Number INTERFACE SYSTEM Refer to clinic/hospital department [facility] CLIA# [id number] [address] [place] [address] * RHEUMATOID FACTOR (12/18/2007 11:30 AM CDT) Pathologist [facility] RHEUMATOID FACTOR See Sep Report [facility] Blood specimen (specimen) 12/18/2007 11:30 AM CDT 12/19/2007 7:26 AM CDT Narrative INTERFACE SYSTEM - 12/25/2007 10:43 AM CDT fx to [phone] us Rafal Seth DO CHEMISTRY ORDERABLES Final Resu lt Performing Organization Address [facility] de Phone Number INTERFACE SYSTEM Refer to clinic/hospital department [facility] CLIA# [id number] [address] [place] [address] * ROXY (12/18/2007 11:30 AM CDT) ROXY Negative Negative [facility] Blood specimen (specimen) 12/18/2007 11:30 AM CDT 12/18/2007 10:11 PM CDT Rafal Seth DO CHEMISTRY ORDERABLES Final Resu lt Performing Organization Address City/[facility] de Phone Number INTERFACE SYSTEM Refer to clinic/hospital department [facility] CLIA# [id number] [address] [place] [address] * VITAMIN B12 AND FOLATE (12/18/2007 11:30 AM CDT) FOLATE, SERUM 17.26 >=5.38 ng/dL [facility] VITAMIN B12 699 211 - 911 pg/dL [facility] Blood specimen (specimen) 12/18/2007 11:30 AM CDT 12/18/2007 10:11 PM CDT Rafal Seth DO CHEMISTRY ORDERABLES Final Resu lt Performing Organization Address [facility] de Phone Number INTERFACE SYSTEM Refer to clinic/hospital department [facility] CLIA# [id number] [address] [place] [address] documented in this encounter Visit Diagnoses Not on filedocumented in this encounter Care Teams Machine Strap Buckler Relationship Specialty Start Date End Date Francisco Vargas MD [address] [address] PCP - General Family Practice 10/28/20 documented as of this encounter
--- OUTSIDE RECORDS SUMMARY | 2024-11-05 15:49 | XMS_ITS | Encounter Summary ---
Author Organization [facility] Address [address] [place] [address] Care Team Providers Care Chemical Preparer Name Role Phone Francisco Vargas MD Primary Care Provider +1 -[phone] Encounter Details Date Type Department Care Team (Latest Contact Info) Description 09/16/2004 Outpatient Historical 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
--- OUTSIDE RECORDS SUMMARY | 2024-11-05 15:49 | XMS_ITS | Encounter Summary ---
Author Organization [facility] Address [address] 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 Gender Identity Not on file Sexual Orientation Not on file documented as of this encounter Plan of Treatment Not on file documented as of this encounter Procedures Procedure Name Priority Date/Time Associated Diagnosis Comments TESTOSTERONE, TOTAL Routine 01/25/2008 3 :25 PM CDT documented in this encounter Results * TESTOSTERONE (01/25/2008 3:25 PM CDT) TESTOSTERONE See Sep Report [facility] Blood specimen (specimen) 01/25/2008 3:25 PM CDT 01/26/2008 8:30 AM CDT us Rafal Seth DO CHEMISTRY ORDERABLES Final Resu lt INTERFACE SYSTEM Refer to clinic/hospital department [facility] CLIA# [id number] [address] [place] [address] documented in this encounter Visit Diagnoses Not on filedocumented in this encounter Care Teams Health Director Relationship Specialty Start Date End Date Francisco Vargas MD [address] [address] PCP - General Family Practice 10/28/20 documented as of this encounter
--- OUTSIDE RECORDS SUMMARY | 2024-11-05 15:49 | XMS_ITS | Encounter Summary ---
Author Organization [facility] Address [address] [place] [address] Care Team Providers Care Executive Associate Name Role Phone Francisco Vargas MD Primary Care Provider +1 -[phone] Reason for Referral * Outpatient Services (Routine) - Closed Specialty Diagnoses / Procedures Referred By Contac t Referred To Contact Radiology Diagnoses Renal artery stenosis Procedures CTA ABD W WO CONTRAST Cat Ortega FNP [address] [place] [address] Phone: tel: fax: [facility] [place] [address] [place] [address] Phone: tel: fax: Referral ID Status Reason Start Date Expiration Date V isits Requested Visits Authorized [id number] Closed [place] [facility] CTS to Schedule (SGF) 09/25/2015 10/25/2016 1 1 Encounter Details Date Type Department Care Team (Latest Contact Info) Description 09/25/2015 Ancillary Orders [facility] Centralized Scheduling [address] [place] [address] Cat Ortega FNP [address], [place] [address] Renal artery stenosis (Primary Dx) Social History Tobacco Use Types Packs/Day Years Used Date Smoking Tobacco: Never Smokeless Tobacco: Never Alcohol Use Standard Drinks/Week Comments No 0 (1 standard drink = 0.6 oz pur e alcohol) Sex and Gender Information Value Date Recorded Sex Assigned at Not on file Legal Sex Male 7:05 AM INFUSION RN Gender Identity Not on file Sexual Orientation Not on file Occupation Industry Job Start Date Job End Date Not on file Not on file Not on file Not on file documented as of this encounter Plan of Treatment Not on file documented as of this encounter Results * CTA ABD W WO CONTRAST (09/30/2015 9:57 AM CDT) Anatomical Region Laterality Modality Abdomen Computed Tomogra phy 09/30/2015 9:58 AM CDT Impressions 09/30/2015 3:00 PM CDT IMPRESSION: 1. Moderate stenosis just distal to the origin of the left renal artery. Stenosis is approximately 50%. This is not hemodynamically significant but should be further assessed clinically or with additional Doppler studies. [id number] Narrative 09/30/2015 3:00 PM CDT Exam: CTA ABD W WO CONTRAST Date/Time of Exam: 09/30/2015 9:57 AM Reason For Exam: Renal artery stenosis. Findings: CTA of the abdomen and pelvis was performed following intravenous 100 mL Optiray 320 was utilized for intravenous contrast. Lung bases are clear and the heart size is normal. There is no evidence of aneurysm formation. Origin of the superior mesenteric and celiac axis appears to be normal. There is moderate narrowing to the proximal aspect of the left renal artery. Stenosis is at least 50% and may be slightly greater. Right renal artery appears to be normal. Iliac vessels are normal. There is no evidence of ascites. Kidneys are functionally and anatomically intact with a low-attenuation density along the lateral aspect of the right kidney probably representing a cyst. Liver is smooth and homogeneous. Gallbladder is present. Spleen is unremarkable. Pancreas is normal. Cat Ortega [facility] ORDERABLES Final Result documented in this encounter Visit Diagnoses Diagnosis Renal artery stenosis- Primary Atherosclerosis of renal artery Renal artery stenosis Atherosclerosis of renal artery documented in this encounter Care Teams Executive Associate Relationship Specialty Start Date End Date Francisco Vargas MD [address] [address] PCP - General Family Practice 10/28/20 documented as of this encounter
--- OUTSIDE RECORDS SUMMARY | 2024-11-05 15:49 | XMS_ITS | Encounter Summary ---
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
--- OUTSIDE RECORDS SUMMARY | 2024-11-05 15:49 | XMS_ITS | Encounter Summary ---
Author Organization [facility] Address [address] [place] [address] Care Team Providers Care Second Ride Fare Collector Name Role Phone Francisco Vargas MD Primary Care Provider +1 [phone] Encounter Details Date Type Department Care Team (Latest Contact Info) Description 09/09/2004 Outpatient Historical [facility]- [address] [address] Dung Benson MD [address] [phone] DEFICIENCY ANEMIA NOS (Primary Dx); SEBORRHEIC KERATOSIS NOS Social History Tobacco Use Types Packs/Day Years Used Date Smoking Tobacco: Never Assessed Sex and Gender Information Value Date Recorded Sex Assigned at Not on file Legal 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
--- OUTSIDE RECORDS SUMMARY | 2024-11-05 15:49 | XMS_ITS | Encounter Summary ---
Author Organization [facility] Address [address] [place] [address] Care Team Providers Care Hearing Dog Trainer Name Role Phone Francisco Vargas MD Primary Care Provider +1 [phone] Encounter Details Date Type Department Care Team (Latest Contact Info) Description 02/21/2007 Outpatient Historical [facility]- [address] [place] [address] Porter Mirza, [place] NO ADDRESS ON FILE Phlebitis and Thrombophlebitis of Unspecified Site (Primary Dx) Social History Tobacco Use Types Packs/Day Years Used Date Smoking Tobacco: Never Assessed Sex and Gender Information Value Date Recorded Sex Assigned at Not on file Legal Sex Male 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
--- OUTSIDE RECORDS SUMMARY | 2024-11-05 15:49 | XMS_ITS | Encounter Summary ---
Author Organization [facility] Address [address] [place] [address] Care Team Providers Care Pathology Laboratory Aide Name Role Phone Francisco Vargas MD Primary Care Provider +1 [phone] Encounter Details Date Type Department Care Team (Late st Contact Info) Description 02/08/2007 Outpatient Historical [facility] Medicine- [facility] [address] [place] [phone] Social History Tobacco Use Types Packs/Day Years Used Date Smoking Tobacco: Never Assessed Sex and Gender Information Value Date Recorded Sex Assigned at Not on file Legal Sex Male 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
--- OUTSIDE RECORDS SUMMARY | 2024-11-05 15:49 | XMS_ITS | Encounter Summary ---
Author Organization [facility] Address [address] [place] [address] Care Team Providers Care Knock Up Assembler Name Role Phone Francisco Vargas MD Primary Care Provider +1 -[phone] Encounter Details Date Type Department Care Team (Latest Contact Info) Description 01/04/2007 Outpatient Historical [facility]- [address] [phone] Rafal Seth DO NO ADDRESS ON FILE Actinic Keratosis (Primary Dx); Inflamed Seborr Keratos Social History Tobacco Use Types Packs/Day Years Used Date Smoking Tobacco: Never Assessed Sex and Gender Information Value Date Recorded Sex Assigned at Not on file Legal Sex Male 7: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
--- OUTSIDE RECORDS SUMMARY | 2024-11-05 15:49 | XMS_ITS | Encounter Summary ---
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
--- OUTSIDE RECORDS SUMMARY | 2024-11-05 15:49 | XMS_ITS | Encounter Summary ---
Author Organization [facility] Address [address] [place] [address] Care Team Providers Care District Representative Name Role Phone Francisco Vargas MD Primary Care Provider +1 -[phone] Encounter Details Date Type Department Care Team (Latest Contact Info) Description 02/19/1998 Outpatient Historical [facility] Medicine- [address] [phone] Dung Benson MD [address] [facility] [address] [place] [phone] Unspecified essential hypertension (Primary Dx); Dizziness and giddiness Social History Tobacco Use Types Packs/Day Years Used Date Smoking Tobacco: Never Assessed Sex and Gender Information Value Date Recorded Sex Assigned at Not on file Legal 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
--- OUTSIDE RECORDS SUMMARY | 2024-11-05 15:49 | XMS_ITS | Encounter Summary ---
Author Organization [facility] Address [address] [place] [address] Care Team Providers Care Permaculture Contractor Name Role Phone Francisco Vargas MD Primary Care Provider +1 [phone] Encounter Details Date Type Department Care Team (Latest Contact Info) Description 02/15/2007 Outpatient Historical [facility]- [address] [phone] Porter Mirza PA NO ADDRESS ON FILE Phlebitis and Thrombophlebitis of Unspecified Site (Primary Dx) Social History Tobacco Use Types Packs/Day Years Used Date Smoking Tobacco: Never Assessed Sex and Gender Information Value Date Recorded Sex Assigned at Not on file Legal Sex Male 7:05 AM LEDGE MAN Gender Identity Not on file Sexual Orientation Not on file documented as of this encounter Plan of Treatment Not on file documented as of this encounter Visit Diagnoses Diagnosis Phlebitis and thrombophlebitis of unspecified site- Primary documented in this encounter Care Teams Permaculture Contractor Relationship Specialty Start Date End Date Francisco Vargas MD [address] [facility] 60 [place] [address] PCP - General Family Practice 10/28/20 documented as of this encounter
--- OUTSIDE RECORDS SUMMARY | 2024-11-05 15:49 | XMS_ITS | Encounter Summary ---
Author Organization [facility] Address [address] [place] [address] Care Team Providers Care Clinical Informatics Strategist Name Role Phone Francisco Vargas MD Primary Care Provider +1 [phone] Reason for Referral * Outpatient Services (Routine) - Closed Specialty Diagnoses / Procedures Referred By Contac t Referred To Contact Radiology Diagnoses Renal artery stenosis Procedures US RENAL ARTERY IMAGING Cat Ortega FNP [address] [place] [address] Phone: tel: fax: [facility] [address] [place] [address] Phone: tel: fax: Referral ID Status Reason Start Date Expiration Date V isits Requested Visits Authorized [id number] Closed [place] View CTS to Schedule (SGF) 09/18/2015 10/18/2016 1 1 Encounter Details Date Type Department Care Team (Latest Contact Info) Description 09/18/2015 Ancillary Orders [facility] Centralized Scheduling [address] [place] [address] Cat Ortega FNP [address] [place] [address] Renal artery stenosis (Primary Dx) Social History Tobacco Use Types Packs/Day Years Used Date Smoking Tobacco: Never Smokeless Tobacco: Never Alcohol Use Standard Drinks/Week Comments No 0 (1 standard drink = 0.6 oz pur e alcohol) Sex and Gender Information Value Date Recorded Sex Assigned at Not on file Legal Sex Male 7:05 AM COMPLIANCE AND CONTROL ANALYST Gender Identity Not on file Sexual Orientation Not on file Occupation Industry Job Start Date Job End Date Not on file Not on file Not on file Not on file documented as of this encounter Plan of Treatment Not on file documented as of this encounter Results * US RENAL ARTERY IMAGING (09/22/2015 12:31 PM CDT) Anatomical Region Laterality Modality Abdomen Ultrasound 09/22/2015 12:3 1 PM CDT Impressions 09/22/2015 2:30 PM CDT IMPRESSION: 1. Three small right renal cysts that appear to be simple. 2. Renal artery stenosis is not apparent. [id number] Narrative 09/22/2015 2:30 PM CDT Exam: US RENAL ARTERY IMAGING Date/Time of Exam: 09/22/2015 12:31 PM Reason For Exam: Renal artery stenosis. Findings: Renal ultrasound demonstrates right kidney to measure 9.5 x 4.4 x 3.6 cm and the left kidney to measure 10.3 x 3.6 x 5.5 cm. Renal masses are not identified. There is no evidence of hydronephrosis. There are three small cortical cysts on the right kidney. These all appear to be simple. Resistive index on the right is 0.67 and on the left 0.69. Arcuate artery waveform is normal. Cat Ortega [facility] US ORDERABLES Final Result documented in this encounter Visit Diagnoses Diagnosis Renal artery stenosis- Primary Atherosclerosis of renal artery Renal artery stenosis Atherosclerosis of renal artery documented in this encounter Care Teams Clinical Informatics Strategist Relationship Specialty Start Date End Date Francisco Vargas MD [address] [facility] [place] [address] PCP - General Family Practice 10/28/20 documented as of this encounter
--- OUTSIDE RECORDS SUMMARY | 2024-11-05 15:49 | XMS_ITS | Encounter Summary ---
Author Organization 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
--- OUTSIDE RECORDS SUMMARY | 2024-11-05 15:49 | XMS_ITS | Encounter Summary ---
Author Organization [facility] Address [address] [place] [address] Care Team Providers Care Drapery Estimator Name Role Phone Francisco Vargas MD Primary Care Provider +1 -[phone] Encounter Details Date Type Department Care Team (Latest Contact Info) Description 10/06/1998 Outpatient Historical [facility] Medicine- [address] [phone] Rafal Seth DO NO ADDRESS ON FILE Hypotension, unspecified (Primary Dx); Other malaise and fatigue; Dizziness and giddiness Social History Tobacco Use Types Packs/Day Years Used Date Smoking Tobacco: Never Assessed Sex and Gender Information Value Date Recorded Sex Assigned at Not on file Legal 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
--- OUTSIDE RECORDS SUMMARY | 2024-11-05 15:50 | XMS_ITS | Encounter Summary ---
Author Organization [facility] Address [address] [place] [address] Care Team Providers Care Blender Helper Name Role Phone Francisco Vargas MD Primary Care Provider +1 -[phone] Encounter Details Date Type Department Care Team (Latest Contact Info) Description 04/29/2006 Outpatient Historical [facility] [address] [place] [address] Shawnee Todd, COMPLIANCE VICE PRESIDENT [address] [place] [address] Acute Upper Respiratory Infections of Unspecified Site (Primary Dx) Social History Tobacco Use Types Packs/Day Years Used Date Smoking Tobacco: Never Assessed Sex and Gender Information Value Date Recorded Sex Assigned at Not on file Legal 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
--- OUTSIDE RECORDS SUMMARY | 2024-11-05 15:50 | XMS_ITS | Encounter Summary ---
Author Organization [facility] Address [address] [place] [address] Care Team Providers Care Cutter Finisher Name Role Phone Francisco Vargas MD Primary Care Provider +1 -[phone] Encounter Details Date Type Department Care Team (Late st Contact Info) Description 06/18/2003 Outpatient Historical [facility] Medicine- [address] [phone] Dung Benson MD [address] [facility] 200 [place] [address] Social History Tobacco Use Types Packs/Day Years Used Date Smoking Tobacco: Never Assessed Sex and Gender Information Value Date Recorded Sex Assigned at Not on file Legal Sex Male 7:05 AM HEALTH TECHNICAL WRITER Gender Identity Not on file Sexual Orientation Not on file documented as of this encounter Plan of Treatment Not on file documented as of this encounter Visit Diagnoses Not on filedocumented in this encounter Care Teams Cutter Finisher Relationship Specialty Start Date End Date Francisco Vargas MD [address] [facility] 60 [place] [address] PCP - General Family Practice 10/28/20 documented as of this encounter
--- OUTSIDE RECORDS SUMMARY | 2024-11-05 15:50 | XMS_ITS | Encounter Summary ---
Author Organization [facility] Address [address] [place] [address] Care Team Providers Care Furnace Door Tender Name Role Phone Francisco Vargas MD Primary Care Provider +1 -[phone] Encounter Details Date Type Department Care Team (Late st Contact Info) Description 02/24/2005 Outpatient Historical [facility] OP Dung Benson MD [address] [facility] 200 [place] [address] Social History Tobacco Use Types Packs/Day Years Used Date Smoking Tobacco: Never Assessed Sex and Gender Information Value Date Recorded Sex Assigned at Not on file Legal Sex Male 7:05 AM EVP OPERATIONS Gender Identity Not on file Sexual Orientation Not on file documented as of this encounter Plan of Treatment Not on file documented as of this encounter Visit Diagnoses Not on filedocumented in this encounter Care Teams Furnace Door Tender Relationship Specialty Start Date End Date Francisco Vargas MD [address] [facility] 60 [place] [address] PCP - General Family Practice 10/28/20 documented as of this encounter
--- OUTSIDE RECORDS SUMMARY | 2024-11-05 15:50 | XMS_ITS | Encounter Summary ---
Author Organization [facility] Address [address] [place] [address] Care Team Providers Care Program Manager Rn Name Role Phone Francisco Vargas MD Primary Care Provider +1 -[phone] Encounter Details Date Type Department Care Team (Latest Contact Info) Description 04/29/1999 Outpatient Historical [facility] 19 [place] [address] Dung Benson MD [address] [facility] 200 [place] [address] Dysfunct eustachian tube (Primary Dx) Social History Tobacco Use Types Packs/Day Years Used Date Smoking Tobacco: Never Assessed Sex and Gender Information Value Date Recorded Sex Assigned at Not on file Legal 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
--- OUTSIDE RECORDS SUMMARY | 2024-11-05 15:50 | XMS_ITS | Encounter Summary ---
Author Organization [facility] Address [address] [place] [address] Care Team Providers Care Mower Mechanic Name Role Phone Francisco Vargas MD Primary Care Provider +1 [phone] Encounter Details Date Type Department Care Team (Late st Contact Info) Description 07/07/2005 Outpatient Historical [facility] Medicine- [facility] 19 [place] [address] Social History Tobacco Use Types Packs/Day Years Used Date Smoking Tobacco: Never Assessed Sex and Gender Information Value Date Recorded Sex Assigned at Not on file Legal Sex Male 7:05 AM RATING CLERK Gender Identity Not on file Sexual Orientation Not on file documented as of this encounter Plan of Treatment Not on file documented as of this encounter Visit Diagnoses Not on filedocumented in this encounter Care Teams Mower Mechanic Relationship Specialty Start Date End Date Francisco Vargas MD [address] [facility] 60 [place] [address] PCP - General Family Practice 10/28/20 documented as of this encounter
--- OUTSIDE RECORDS SUMMARY | 2024-11-05 15:50 | XMS_ITS | Encounter Summary ---
Author Organization [facility] Address [address] [place] [address] Care Team Providers Care Grades 7 And 8 Visiting Teacher Name Role Phone Francisco Vargas MD Primary Care Provider +1 -[phone] Encounter Details Date Type Department Care Team (Late st Contact Info) Description 12/16/2004 Outpatient Historical [facility] Medicine- [facility] 19 [place] [address] Social History Tobacco Use Types Packs/Day Years Used Date Smoking Tobacco: Never Assessed Sex and Gender Information Value Date Recorded Sex Assigned at Not on file 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
--- OUTSIDE RECORDS SUMMARY | 2024-11-05 15:50 | XMS_ITS | Encounter Summary ---
Author Organization [facility] Address [address] [place] [address] Care Team Providers Care Bar Machine Operator Name Role Phone Francisco Vargas MD Primary Care Provider +1 [phone] Encounter Details Date Type Department Care Team (Late st Contact Info) Description 04/21/2006 Outpatient Historical [facility] Podiatry-[facility] [place] [address] [place] [address] Social History Tobacco Use Types Packs/Day Years Used Date Smoking Tobacco: Never Assessed Sex and Gender Information Value Date Recorded Sex Assigned at Not on file Legal 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
--- OUTSIDE RECORDS SUMMARY | 2024-11-05 15:50 | XMS_ITS | Encounter Summary ---
Author Organization [facility] Address [address] [place] [address] Care Team Providers Care Dosier Operator Name Role Phone Francisco Vargas MD Primary Care Provider +1 [phone] Encounter Details Date Type Department Care Team (Latest Contact Info) Description 04/21/2006 Outpatient Historical [facility] Dermatology- [facility] [place] [address] [place] [address] oRd Cramer MD NO ADDRESS ON FILE Other Seborrheic Keratosis (Primary Dx); Actinic Keratosis Social History Tobacco Use Types Packs/Day Years Used Date Smoking Tobacco: Never Assessed Sex and Gender Information Value Date Recorded Sex Assigned at Not on file Legal Sex Male 7: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
--- OUTSIDE RECORDS SUMMARY | 2024-11-05 15:50 | XMS_ITS | Encounter Summary ---
Author Organization [facility] Address [address] [place] [address] Care Team Providers Care Airline Pilot Flight Instructor Name Role Phone Francisco Vargas MD Primary Care Provider +1 -[phone] Encounter Details Date Type Department Care Team (Latest Contact Info) Description 10/23/1999 Outpatient Historical [facility]- [address] [phone] Rafal Seth DO NO ADDRESS ON FILE Chest pain, unspecified (Primary Dx); Acute pharyngitis Social History Tobacco Use Types Packs/Day Years Used Date Smoking Tobacco: Never Assessed Sex and Gender Information Value Date Recorded Sex Assigned at Not on file Legal 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
--- OUTSIDE RECORDS SUMMARY | 2024-11-05 15:50 | XMS_ITS | Encounter Summary ---
Author Organization [employer] [facility] Address [address] [place] [address] Care Team Providers Care Content Specialist Name Role Phone Francisco Vargas MD Primary Care Provider +1 -[phone] Reason for Visit * Reason Comments Medication Refill Encounter Details Date Type Department Care Team (Late st Contact Info) Description 12/06/2016 Refill [facility] [address] [place] [address] Kimberly Cavazos MD [address] [address] Social History Tobacco Use Types Packs/Day Years Used Date Smoking Tobacco: Never Smokeless Tobacco: Never Alcohol Use Standard Drinks/Week Comments No 0 (1 standard drink = 0.6 oz pur e alcohol) Sex and Gender Information Value Date Recorded Sex Assigned at Not on file Legal Sex Male 7:[address] Gender Identity Not on file Sexual Orientation Not on file Occupation Industry Job Start Date Job End Date Not on file Not on file Not on file Not on file documented as of this encounter Plan of Treatment Not on file documented as of this encounter Visit Diagnoses Not on filedocumented in this encounter Care Teams Content Specialist Relationship Specialty Start Date End Date Francisco Vargas MD [address] [address] PCP - General Family Practice 10/28/20 documented as of this encounter
--- OUTSIDE RECORDS SUMMARY | 2024-11-05 15:50 | XMS_ITS | Encounter Summary ---
Author Organization [facility] Address [address] [place] [address] Care Team Providers Care Office Aide Name Role Phone Francisco Vargas MD Primary Care Provider +1 -[phone] Encounter Details Date Type Department Care Team (Latest Contact Info) Description 02/09/[address] 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
--- OUTSIDE RECORDS SUMMARY | 2024-11-05 15:50 | XMS_ITS | Encounter Summary ---
Author Organization [facility] Address [address] [place] [address] Care Team Providers Care Steel Die Press Set Up Operator Name Role Phone Francisco Vargas MD Primary Care Provider +1 -[phone] Encounter Details Date Type Department Care Team (Latest Contact Info) Description 12/18/2001 Outpatient Historical [facility] Medicine [place] [address] [phone] Dung Benson MD [address] [facility] 200 [place] [address] HYPERTENSION NOS (Primary Dx); ANXIETY STATE NOS Social History Tobacco Use Types Packs/Day Years Used Date Smoking Tobacco: Never Assessed Sex and Gender Information Value Date Recorded Sex Assigned at Not on file Legal Sex Male 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
--- OUTSIDE RECORDS SUMMARY | 2024-11-05 15:50 | XMS_ITS | Encounter Summary ---
Author Organization [facility] Address [address] [place] [address] Care Team Providers Care Senior Java Ui Developer Name Role Phone Francisco Vargas MD Primary Care Provider +1 -[phone] Encounter Details Date Type Department Care Team (Late st Contact Info) Description 02/03/2005 Outpatient Historical [facility] Medicine- 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
--- OUTSIDE RECORDS SUMMARY | 2024-11-05 15:50 | XMS_ITS | Encounter Summary ---
Author Organization [facility] Address [address] [place] [address] Care Team Providers Care Inventory Control Assistant Name Role Phone Francisco Vargas MD Primary Care Provider +1 -[phone] Encounter Details Date Type Department Care Team (Latest Contact Info) Description 05/30/2000 Outpatient Historical [facility] 19 [place] [address] Dung Benson MD [address] [facility] 200 [place] [address] Orchitis and epididymitis, unspecified (Primary Dx) Social History Tobacco Use Types Packs/Day Years Used Date Smoking Tobacco: Never Assessed Sex and Gender Information Value Date Recorded Sex Assigned at Not on file Legal Sex Male 7:05 AM ADDRESSER Gender Identity Not on file Sexual Orientation Not on file documented as of this encounter Plan of Treatment Not on file documented as of this encounter Visit Diagnoses Diagnosis Orchitis and epididymitis, unspecified- Primary documented in this encounter Care Teams Inventory Control Assistant Relationship Specialty Start Date End Date Francisco Vargas MD [address] [facility] 60 [place] [address] PCP - General Family Practice 10/28/20 documented as of this encounter
--- OUTSIDE RECORDS SUMMARY | 2024-11-05 15:50 | XMS_ITS | Encounter Summary ---
Author Organization [facility] Address [address] [place] [address] Care Team Providers Care Commercial Credit Specialist Name Role Phone Francisco Vargas MD Primary Care Provider +1 -[phone] Encounter Details Date Type Department Care Team (Latest Contact Info) Description 10/19/2000 Outpatient Historical [facility] 19 [place] [address] Dung Benson MD [address] [facility] 200 [place] [address] Throat pain (Primary Dx); Other malaise and fatigue; Special screening for malignant neoplasm of prostate Social History Tobacco Use Types Packs/Day Years Used Date Smoking Tobacco: Never Assessed Sex and Gender Information Value Date Recorded Sex Assigned at Not on file Legal 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
--- OUTSIDE RECORDS SUMMARY | 2024-11-05 15:50 | XMS_ITS | Encounter Summary ---
Author Organization [facility] Address [address] [place] [address] Care Team Providers Care Sand Screener Name Role Phone Francisco Vargas MD Primary Care Provider +1 -[phone] Encounter Details Date Type Department Care Team (Latest Contact Info) Description 07/03/2003 Outpatient Historical [facility]- [address] [phone] Dung Benson MD [address] [facility] 200 [place] [address] DIABETES UNCOMPL ADULT-TYPE II (CMS/HCC) (Primary Dx) Social History Tobacco Use Types Packs/Day Years Used Date Smoking Tobacco: Never Assessed Sex and Gender Information Value Date Recorded Sex Assigned at Not on file Legal Sex Male 7: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
--- OUTSIDE RECORDS SUMMARY | 2024-11-05 15:50 | XMS_ITS | Encounter Summary ---
Author Organization [facility] Address [address] [place] [address] Care Team Providers Care Tram Inspector Name Role Phone Francisco Vargas MD Primary Care Provider +1 -[phone] Encounter Details Date Type Department Care Team (Late st Contact Info) Description 01/05/2006 Outpatient Historical [facility] Medicine- [facility] 19 [place] [address] Social History Tobacco Use Types Packs/Day Years Used Date Smoking Tobacco: Never Assessed Sex and Gender Information Value Date Recorded Sex Assigned at Not on file Legal Sex Male 7:05 AM FINISHER COLD ROLLING Gender Identity Not on file Sexual Orientation Not on file documented as of this encounter Plan of Treatment Not on file documented as of this encounter Visit Diagnoses Not on filedocumented in this encounter Care Teams Tram Inspector Relationship Specialty Start Date End Date Francisco Vargas MD [address] [facility] 60 [place] [address] PCP - General Family Practice 10/28/20 documented as of this encounter
--- OUTSIDE RECORDS SUMMARY | 2024-11-05 15:50 | XMS_ITS | Encounter Summary ---
Author Organization [facility] Address [address] [place] [address] Care Team Providers Care Developer Advocate Name Role Phone Francisco Vargas MD Primary Care Provider +1 -[phone] Encounter Details Date Type Department Care Team (Latest Contact Info) Description 06/18/2003 Outpatient Historical [facility] Medicine- [address] [phone] Dung Benson MD [address] [facility] 200 [place] [address] HYPERTENSION NOS (Primary Dx) Social History Tobacco Use Types Packs/Day Years Used Date Smoking Tobacco: Never Assessed Sex and Gender Information Value Date Recorded Sex Assigned at Not on file Legal 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
--- OUTSIDE RECORDS SUMMARY | 2024-11-05 15:50 | XMS_ITS | Encounter Summary ---
Author Organization [facility] Address [address] [place] [address] Care Team Providers Care Lead Nuclear Medicine Technologist Name Role Phone Francisco Vargas MD Primary Care Provider +1 -[phone] Encounter Details Date Type Department Care Team (Late st Contact Info) Description 08/18/2005 Outpatient Historical [facility] Medicine- [address] [phone] Social History Tobacco Use Types Packs/Day Years Used Date Smoking Tobacco: Never Assessed Sex and Gender Information Value Date Recorded Sex Assigned at Not on file Legal Sex Male 7:05 AM RN HOME HEALTH Gender Identity Not on file Sexual Orientation Not on file documented as of this encounter Plan of Treatment Not on file documented as of this encounter Visit Diagnoses Not on filedocumented in this encounter Care Teams Lead Nuclear Medicine Technologist Relationship Specialty Start Date End Date Francisco Vargas MD [address] [facility] 60 [place] [address] PCP - General Family Practice 10/28/20 documented as of this encounter
--- OUTSIDE RECORDS SUMMARY | 2024-11-05 15:50 | XMS_ITS | Encounter Summary ---
Author Organization [facility] Address [address] [place] [address] Care Team Providers Care Ping Pong Table Assembler Name Role Phone Francisco Vargas MD Primary Care Provider +1 -[phone] Encounter Details Date Type Department Care Team (Latest Contact Info) Description 07/08/1999 Outpatient Historical [facility] [address] [place] [phone] Dung Benson MD [address] [facility] [address] [place] [address] Acute bronchitis (Primary Dx); Acute sinusitis, unspecified Social History Tobacco Use Types Packs/Day Years Used Date Smoking Tobacco: Never Assessed Sex and Gender Information Value Date Recorded Sex Assigned at Not on file Legal Sex Male 7:05 AM STYLE ADVISOR Gender Identity Not on file Sexual Orientation Not on file documented as of this encounter Plan of Treatment Not on file documented as of this encounter Visit Diagnoses Diagnosis Acute bronchitis- Primary Acute sinusitis, unspecified documented in this encounter Care Teams Ping Pong Table Assembler Relationship Specialty Start Date End Date Francisco Vargas MD [address] [facility] 60 [place] [address] PCP - General Family Practice 10/28/20 documented as of this encounter
--- OUTSIDE RECORDS SUMMARY | 2024-11-05 15:50 | XMS_ITS | Encounter Summary ---
Author Organization [facility] Address [address] [facility] [place] [address] Care Team Providers Care Video Manager Name Role Phone Francisco Vargas MD Primary Care Provider +1 [phone] Encounter Details Date Type Department Care Team (Latest Contact Info) Description 05/29/1999 Outpatient Historical [facility] Th[facility]at 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
--- OUTSIDE RECORDS SUMMARY | 2024-11-05 15:50 | XMS_ITS | Encounter Summary ---
Author Organization [facility] Address [address] [place] [address] Care Team Providers Care Personnel Coordinator Name Role Phone Francisco Vargas MD Primary Care Provider +1 [phone] Encounter Details Date Type Department Care Team (Late st Contact Info) Description 08/11/2005 Outpatient Historical [facility] Medicine- [facility] 19 [place] [phone] Social History Tobacco Use Types Packs/Day Years Used Date Smoking Tobacco: Never Assessed Sex and Gender Information Value Date Recorded Sex Assigned at Not on file Legal Sex Male 7:05 AM COLD ROLLING COORDINATOR Gender Identity Not on file Sexual Orientation Not on file documented as of this encounter Plan of Treatment Not on file documented as of this encounter Visit Diagnoses Not on filedocumented in this encounter Care Teams Personnel Coordinator Relationship Specialty Start Date End Date Francisco Vargas MD [address] [facility] 60 [place] [address] PCP - General Family Practice 10/28/20 documented as of this encounter
--- OUTSIDE RECORDS SUMMARY | 2024-11-05 15:50 | XMS_ITS | Encounter Summary ---
Author Organization [facility] Address [address] [place] [address] Care Team Providers Care Gas Appliance Servicer Helper Name Role Phone Francisco Vargas MD Primary Care Provider +1 [phone] Encounter Details Date Type Department Care Team (Late st Contact Info) Description 04/07/2005 Outpatient Historical [facility] Medicine- [facility] [address] [place] [phone] Social History Tobacco Use Types Packs/Day Years Used Date Smoking Tobacco: Never Assessed Sex and Gender Information Value Date Recorded Sex Assigned at Not on file Legal Sex Male 7: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
--- OUTSIDE RECORDS SUMMARY | 2024-11-05 15:50 | XMS_ITS | Encounter Summary ---
Author Organization [facility] Address [address] [place] [address] Care Team Providers Care Pearl Diver Name Role Phone Francisco Vargas MD Primary Care Provider +1 [phone] Encounter Details Date Type Department Care Team (Late st Contact Info) Description 01/10/2017 Ancillary Orders [facility] Medicine [address] [phone] Porter Mirza PA NO ADDRESS ON FILE Bilateral hip pain Social History Tobacco Use Types Packs/Day Years Used Date Smoking Tobacco: Never Smokeless Tobacco: Never Alcohol Use Standard Drinks/Week Comments No 0 (1 standard drink = 0.6 oz pur e alcohol) Sex and Gender Information Value Date Recorded Sex Assigned at Not on file Legal Sex Male 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 Exam: XR HIPS BILATERAL 3-4 VIEWS Date/Time of Exam: 01/10/2017 5:49 PM Reason For Exam: Bilateral hip pain,Bilateral hip pain. Findings: There are relatively mild degenerative changes within the bilateral hip joints with small osteophytes. The joint spaces appear maintained. No bone lesion identified. [id number] Narrative Procedure Note Lavelle Flor MD - 01/11/2017 IMPRESSION IMPRESSION: See below. Exam: XR HIPS BILATERAL 3-4 VIEWS Date/Time of Exam: 01/10/2017 5:49 PM Reason For Exam: Bilateral hip pain,Bilateral hip pain. Findings: There are relatively mild degenerative changes within the bilateral hip joints with small osteophytes. The joint spaces appear maintained. No bone lesion identified. [id number] Porter [facility] ORDERABLES Final Result documented in this encounter Visit Diagnoses Diagnosis Bilateral hip pain Pain in joint, pelvic region and thigh Bilateral hip pain Pain in joint, pelvic region and thigh documented in this encounter Care Teams Pearl Diver Relationship Specialty Start Date End Date Francisco Vargas MD [address] [facility] 60 [place] [address] PCP - General Family Practice 10/28/20 documented as of this encounter
--- OUTSIDE RECORDS SUMMARY | 2024-11-05 15:50 | XMS_ITS | Encounter Summary ---
Author Organization [facility] Address [address] [place] [address] Care Team Providers Care Glass Fitter Name Role Phone Francisco Vargas MD Primary Care Provider +1 [phone] Encounter Details Date Type Department Care Team (Latest Contact Info) Description 12/15/2005 Outpatient Historical [facility]- [address] [phone] Porter Mirza PA NO ADDRESS ON FILE Abdominal Pain, Unspecified Site (Primary Dx); Other Testicular Hypofunction; DM w/o Complication Type II (CMS/HCC); DM Neuro Manif Type II (CMS/HCC) Social History Tobacco Use Types Packs/Day Years Used Date Smoking Tobacco: Never Assessed Sex and Gender Information Value Date Recorded Sex Assigned at Not on file Legal Sex Male 7:05 AM GEOCHEMIST Gender Identity Not on file Sexual Orientation Not on file documented as of this encounter Plan of Treatment Not on file documented as of this encounter Visit Diagnoses Diagnosis Abdominal pain, unspecified site- Primary Other testicular hypofunction Type II or unspecified type diabetes mellitus without mention of complication, not stated as uncontrolled Type II or unspecified type diabetes mellitus with neurological manifestations, not stated as uncontrolled(250.60) (CMS/HCC) Type II or unspecified type diabetes mellitus with neurological manifestations, not stated as uncontrolled documented in this encounter Care Teams Glass Fitter Relationship Specialty Start Date End Date Francisco Vargas MD [address] [facility] 60 [place] [address] PCP - General Family Practice 6/29/21 documented as of this encounter
--- OUTSIDE RECORDS SUMMARY | 2024-11-05 15:50 | XMS_ITS | Encounter Summary ---
Author Organization 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
--- OUTSIDE RECORDS SUMMARY | 2024-11-05 15:50 | XMS_ITS | Encounter Summary ---
Author Organization [facility] Address [address] [place] [address] Care Team Providers Care Publisher Assistant Name Role Phone Francisco Vargas MD Primary Care Provider +1 [phone] Encounter Details Date Type Department Care Team (Latest Contact Info) Description 11/04/2004 Outpatient Historical [facility] 19 [place] [address] Dung Benson MD [address] [facility] 200 [place] [phone] TESTICULAR HYPOFUNC NEC (Primary Dx); DIABETES MELLITUS TYPE II-UNCOMPL (CMS/[facility]) Social History Tobacco Use Types Packs/Day Years Used Date Smoking Tobacco: Never Assessed Sex and Gender Information Value Date Recorded Sex Assigned at Not on file Legal Sex Male 7:05 AM CRACKER OFF Gender Identity Not on file Sexual Orientation Not on file documented as of this encounter Plan of Treatment Not on file documented as of this encounter Visit Diagnoses Diagnosis Other testicular hypofunction- Primary Type II or unspecified type diabetes mellitus without mention of complication, not stated as uncontrolled documented in this encounter Care Teams Publisher Assistant Relationship Specialty Start Date End Date Francisco Vargas MD [address] [facility] 60 [place] [address] PCP - General Family Practice 10/28/20 documented as of this encounter
--- OUTSIDE RECORDS SUMMARY | 2024-11-05 15:50 | XMS_ITS | Encounter Summary ---
Author Organization [facility] Address [address] [place] [address] Care Team Providers Care Diagnostic Radiologic Technologist Name Role Phone Francisco Vargas MD Primary Care Provider +1 [phone] Encounter Details Date Type Department Care Team (Latest Contact Info) Description 09/01/[address] 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 Gender Identity Not on file Sexual Orientation Not on file documented as of this encounter Plan of Treatment Not on file documented as of this encounter Procedures Procedure Name Priority Date/Time Associated Diagnosis Comments PSA MEDICARE SCREEN Routine 09/01/2004 9 :00 AM CDT CBC WITHOUT DIFFERENTIAL Routine 09/01/2004 9:00 AM CDT HEMOGLOBIN A1C Routine 09/01/2004 9:00 AM CDT documented in this encounter Results * HEMOGLOBIN A1C (09/01/2004 9:00 AM CDT) HEMOGLOBIN A1C 5.9 4.0 - 6.0 %A1C INTERFACE SYSTEM 09/01/2004 9:00 AM CDT Dung Benson MD CHEMISTRY ORDERABLES Final Result Performing Organization Address City/State/[facility] Co de Phone Number INTERFACE SYSTEM Refer to clinic/hospital department * (ABNORMAL) CBC WITHOUT DIFFERENTIAL (09/01/2004 9:00 AM CDT) WBC 6.2 4.8 - 10.8 K/ul INTERFACE SYSTEM RBC 3.83(L) 4.60 - 6.20 Mil/ul INTERFACE SYSTEM HEMOGLOBIN 15.0 14.0 - 18.0 g/dL INTERFACE SYSTEM HEMATOCRIT 40.2(L) 41.0 - 53.0 % INTERFACE SYSTEM MCV 105.0(H) 84.0 - 103.0 Fl INTERFACE SYSTEM MCH 39.2(H) 27.0 - 34.0 pg INTERFACE SYSTEM MCHC 37.3(H) 30.0 - 35.0 g/dL INTERFACE SYSTEM RDW 12.9 11.0 - 14.5 percent(in active) INTERFACE SYSTEM PLATELETS 189 140 - 440 K/ul INTERFACE SYSTEM MPV 10.8 8.9 - 12.8 Fl INTERFACE SYSTEM NEUTROPHILS 65.2 42.2 - 75.2 percent(in active) INTERFACE SYSTEM LYMPHOCYTES 25.0 24.0 - 44.0 percent(in active) INTERFACE SYSTEM MONOCYTES 7.3 2.0 - 10.0 percent(in active) INTERFACE SYSTEM EOSINOPHILS 2.3 0.0 - 7.0 % INTERFACE SYSTEM BASOPHILS 0.2 0.0 - 1.0 percent(in active) INTERFACE SYSTEM NEUTROPHIL ABSOLUTE 4.0 2.0 - 8.0 K/uL INTERFACE SYSTEM LYMPHOCYTE ABSOLUTE 1.5 1.2 - 4.0 K/ul INTERFACE SYSTEM MONOCYTE ABSOLUTE 0.5 0.1 - 0.6 K/ul INTERFACE SYSTEM EOSINOPHIL ABSOLUTE 0.1 0.0 - 0.7 K/ul INTERFACE SYSTEM BASOPHILS ABSOLUTE 0.0 0.0 - 0.2 K/ul INTERFACE SYSTEM 09/01/2004 9:00 AM CDT Dung Benson MD HEMATOLOGY ORDERABLES Final Result INTERFACE SYSTEM Refer to clinic/hospital department * PSA MEDICARE SCREEN (09/01/2004 9:00 AM CDT) PSA 0.3 0.0 - 4.0 ng/mL INTERFACE SYSTEM Comment: As of 04 at 12:00 p.m. [facility] has changed the methodology for PSA, but the reference range of 0-4 ng/ml has remained the same. 09/01/2004 9:00 AM CDT us Dung Benson MD CHEMISTRY ORDERABLES COM Fi nal Result INTERFACE SYSTEM Refer to clinic/hospital department documented in this encounter Visit Diagnoses Diagnosis Unspecified essential hypertension- Primary documented in this encounter Care Teams Diagnostic Radiologic Technologist Relationship Specialty Start Date End Date Francisco Vargas MD [address] [facility] 60 [place] [address] PCP - General Family Practice 10/28/20 documented as of this encounter
--- OUTSIDE RECORDS SUMMARY | 2024-11-05 15:50 | XMS_ITS | Encounter Summary ---
Author Organization [facility] Address [address] [place] [address] Care Team Providers Care Refining Machine Operator Name Role Phone Francisco Vargas MD Primary Care Provider +1 -[phone] Encounter Details Date Type Department Care Team (Late st Contact Info) Description 05/29/1999 Outpatient Historical [facility] Ear, Nose and Throat 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
--- OUTSIDE RECORDS SUMMARY | 2024-11-05 15:50 | XMS_ITS | Encounter Summary ---
Author Organization [facility] Address [address] [place] [address] Care Team Providers Care Jeeper Operator Name Role Phone Francisco Vargas MD Primary Care Provider +1 -[phone] Encounter Details Date Type Department Care Team (Latest Contact Info) Description 01/31/[address] [facility] Medicine [address] [phone] Nicole Ramos MD NO ADDRESS ON FILE Other Testicular Hypofunction (Primary Dx) Social History Tobacco Use Types Packs/Day Years Used Date Smoking Tobacco: Never Assessed Sex and Gender Information Value Date Recorded Sex Assigned at Not on file Legal Sex Male 7:05 AM VP SITE Gender Identity Not on file Sexual Orientation Not on file documented as of this encounter Plan of Treatment Not on file documented as of this encounter Visit Diagnoses Diagnosis Other testicular hypofunction- Primary documented in this encounter Care Teams Jeeper Operator Relationship Specialty Start Date End Date Francisco Vargas MD [address] [address] PCP - General Family Practice 10/28/20 documented as of this encounter
--- OUTSIDE RECORDS SUMMARY | 2024-11-05 15:50 | XMS_ITS | Encounter Summary ---
Author Organization [facility] Address [address] [place] [address] Care Team Providers Care Rotary Filter Operator Name Role Phone Francisco Vargas MD Primary Care Provider +1 -[phone] Encounter Details Date Type Department Care Team (Latest Contact Info) Description 07/03/2002 Outpatient Historical [facility] 19 [place] [address] Dung Benson MD [address] [facility] 200 [place] [address] ORCHITIS/EPIDIDYMIT NOS (Primary Dx) Social History Tobacco Use Types Packs/Day Years Used Date Smoking Tobacco: Never Assessed Sex and Gender Information Value Date Recorded Sex Assigned at Not on file Legal Sex Male 7:05 AM HHA Gender Identity Not on file Sexual Orientation Not on file documented as of this encounter Plan of Treatment Not on file documented as of this encounter Visit Diagnoses Diagnosis Orchitis and epididymitis, unspecified- Primary documented in this encounter Care Teams Rotary Filter Operator Relationship Specialty Start Date End Date Francisco Vargas MD [address] [facility] 60 [place] [address] PCP - General Family Practice 10/28/20 documented as of this encounter
--- OUTSIDE RECORDS SUMMARY | 2024-11-05 15:50 | XMS_ITS | Encounter Summary ---
Author Organization [facility] Address [address] [place] [address] Care Team Providers Care Meat Passer Name Role Phone Francisco Vargas MD Primary Care Provider +1 -[phone] Encounter Details Date Type Department Care Team (Latest Contact Info) Description 07/28/2005 Outpatient Historical [facility] Medicine- [facility] 19 [place] [phone] Dung Benson MD [address] [facility] 200 [place] [address] Acute Upper Respiratory Infections of Unspecified Site (Primary Dx) Social History Tobacco Use Types Packs/Day Years Used Date Smoking Tobacco: Never Assessed Sex and Gender Information Value Date Recorded Sex Assigned at Not on file Legal Sex Male 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
--- OUTSIDE RECORDS SUMMARY | 2024-11-05 15:50 | XMS_ITS | Encounter Summary ---
Author Organization [facility] Address [address] [place] [address] Care Team Providers Care Culvert Installer Name Role Phone Francisco Vargas MD Primary Care Provider +1 -[phone] Encounter Details Date Type Department Care Team (Latest Contact Info) Description 06/18/2003 Outpatient Historical [facility] 19 [place] [phone] Dung Benson MD [address] [facility] 200 [place] [address] HYPERTENSION NOS (Primary Dx); HYPERLIPIDEMIA NEC/NOS Social History Tobacco Use Types Packs/Day Years Used Date Smoking Tobacco: Never Assessed Sex and Gender Information Value Date Recorded Sex Assigned at Not on file Legal Sex Male 7:05 AM 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
--- OUTSIDE RECORDS SUMMARY | 2024-11-05 15:50 | XMS_ITS | Encounter Summary ---
Author Organization [facility] Address [address] [place] [address] Care Team Providers Care Mammalogist Name Role Phone Francisco Vargas MD Primary Care Provider +1 -[phone] Encounter Details Date Type Department Care Team (Latest Contact Info) Description 05/23/2006 Outpatient Historical [facility]- [address] [phone] Porter Mirza PA NO ADDRESS ON FILE Cough (Primary Dx); Other Malaise and Fatigue; DM w/o Complication Type II (CMS/HCC); Unspecified Essential Hypertension Social History Tobacco Use Types Packs/Day Years Used Date Smoking Tobacco: Never Assessed Sex and Gender Information Value Date Recorded Sex Assigned at Not on file Legal Sex Male 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 Gender Identity Not on file Sexual Orientation Not on file documented as of this encounter Plan of Treatment Not on file documented as of this encounter Visit Diagnoses Diagnosis Cough- Primary Other malaise and fatigue Type II or unspecified type diabetes mellitus without mention of complication, not stated as uncontrolled Unspecified essential hypertension documented in this encounter Care Teams Mammalogist Relationship Specialty Start Date End Date Francisco Vargas MD [address] [facility] 60 [place] [address] PCP - General Family Practice 10/28/20 documented as of this encounter
--- OUTSIDE RECORDS SUMMARY | 2024-11-05 15:50 | XMS_ITS | Encounter Summary ---
Author Organization [facility] Address [address] [place] [address] Care Team Providers Care Instrument And Control Technician Name Role Phone Francisco Vargas MD Primary Care Provider +1 [phone] Encounter Details Date Type Department Care Team (Late st Contact Info) Description 06/15/2005 Outpatient Historical [facility]- [facility] 19 [place] [phone] Social History Tobacco Use Types Packs/Day Years Used Date Smoking Tobacco: Never Assessed Sex and Gender Information Value Date Recorded Sex Assigned at Not on file Legal 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
--- OUTSIDE RECORDS SUMMARY | 2024-11-05 15:50 | XMS_ITS | Encounter Summary ---
Author Organization [facility] Address [address] [place] [address] Care Team Providers Care Fish Hatchery Man Name Role Phone Francisco Vargas MD Primary Care Provider +1 -[phone] Encounter Details Date Type Department Care Team (Latest Contact Info) Description 09/01/2004 Outpatient Historical [facility] 19 [place] [address] Dung Benson MD [address] [facility] 200 [place] [phone] MIXED HYPERLIPIDEMIA (Primary Dx); ANEMIA NOS; HYPERTENSION NOS; STRAIG SIEGEL-ACID MET NEC Social History Tobacco Use Types Packs/Day Years Used Date Smoking Tobacco: Never Assessed Sex and Gender Information Value Date Recorded Sex Assigned at Not on file Legal Sex Male 7:05 AM TYPE CUTTER Gender Identity Not on file Sexual Orientation Not on file documented as of this encounter Plan of Treatment Not on file documented as of this encounter Visit Diagnoses Diagnosis Mixed hyperlipidemia- Primary Anemia, unspecified Unspecified essential hypertension Other disturbances of straight-chain amino-acid metabolism documented in this encounter Care Teams Fish Hatchery Man Relationship Specialty Start Date End Date Francisco Vargas MD [address] [facility] [address] [place] [address] PCP - General Family Practice 10/28/20 documented as of this encounter
--- OUTSIDE RECORDS SUMMARY | 2024-11-05 15:50 | XMS_ITS | Encounter Summary ---
Author Organization [facility] Address [address] [place] [address] Care Team Providers Care Gang Sawyer Name Role Phone Francisco Vargas MD Primary Care Provider +1 -[phone] Encounter Details Date Type Department Care Team (Latest Contact Info) Description 06/29/1999 Outpatient Historical [facility] 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
--- OUTSIDE RECORDS SUMMARY | 2024-11-05 15:50 | XMS_ITS | Encounter Summary ---
Author Organization [facility] Address [address] [place] [address] Care Team Providers Care Bisque Ware Dipper Name Role Phone Francisco Vargas MD Primary Care Provider +1 -[phone] Encounter Details Date Type Department Care Team (Latest Contact Info) Description 05/04/2006 Outpatient Historical [facility]- [address] [address] Rafal Seth DO NO ADDRESS ON FILE Impacted Cerumen (Primary Dx); Acute Pharyngitis; Other Testicular Hypofunction Social History Tobacco Use Types Packs/Day Years Used Date Smoking Tobacco: Never Assessed Sex and Gender Information Value Date Recorded Sex Assigned at Not on file Legal Sex Male 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
--- OUTSIDE RECORDS SUMMARY | 2024-11-05 15:50 | XMS_ITS | Encounter Summary ---
Author Organization [facility] Address [address] [place] [address] Care Team Providers Care Supervisor Stave Cutting Name Role Phone Francisco Vargas MD Primary Care Provider +1 [phone] Encounter Details Date Type Department Care Team (Late st Contact Info) Description 11/18/2004 Outpatient Historical [facility] Medicine- [facility] 19 [place] [address] Social History Tobacco Use Types Packs/Day Years Used Date Smoking Tobacco: Never Assessed Sex and Gender Information Value Date Recorded Sex Assigned at Not on file Legal Sex Male 7:05 AM NUTRITION HELPER Gender Identity Not on file Sexual Orientation Not on file documented as of this encounter Plan of Treatment Not on file documented as of this encounter Visit Diagnoses Not on filedocumented in this encounter Care Teams Supervisor Stave Cutting Relationship Specialty Start Date End Date Francisco Vargas MD [address] [facility] 60 [place] [address] PCP - General Family Practice 10/28/20 documented as of this encounter
--- OUTSIDE RECORDS SUMMARY | 2024-11-05 15:50 | XMS_ITS | Encounter Summary ---
Author Organization [facility] Address [address] [place] [address] Care Team Providers Care Layout Technician Name Role Phone Francisco Vargas MD Primary Care Provider +1 [phone] Encounter Details Date Type Department Care Team (Latest Contact Info) Description 04/04/2006 Outpatient Historical [facility] Medicine- [address] [place] [address] Nicole Ramos MD NO ADDRESS ON FILE Pain in Joint, Ankle and Foot (Primary Dx); Other Testicular Hypofunction; DM w/o Complication Type II (CMS/HCC); DM Neuro Manif Type II (CMS/HCC) Social History Tobacco Use Types Packs/Day Years Used Date Smoking Tobacco: Never Assessed Sex and Gender Information Value Date Recorded Sex Assigned at Not on file 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 Gender Identity Not on file Sexual Orientation Not on file documented as of this encounter Plan of Treatment Not on file documented as of this encounter Visit Diagnoses Diagnosis Pain in joint, ankle and foot- Primary Other testicular hypofunction Type II or unspecified type diabetes mellitus without mention of complication, not stated as uncontrolled Type II or unspecified type diabetes mellitus with neurological manifestations, not stated as uncontrolled(250.60) (CMS/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
--- OUTSIDE RECORDS SUMMARY | 2024-11-05 15:50 | XMS_ITS | Encounter Summary ---
Author Organization [facility] Address [address] [place] [address] Care Team Providers Care Laborer Sawmill Name Role Phone Francisco Vargas MD Primary Care Provider +1 [phone] Encounter Details Date Type Department Care Team (Latest Contact Info) Description 10/02/[address] 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
--- OUTSIDE RECORDS SUMMARY | 2024-11-05 15:50 | XMS_ITS | Encounter Summary ---
Author Organization [facility] Address [address] [place] [address] Care Team Providers Care Recreation Officer Name Role Phone Francisco Vargas MD Primary Care Provider +1 -[phone] Encounter Details Date Type Department Care Team (Latest Contact Info) Description 12/02/2004 Outpatient Historical [facility] 19 [place] [address] Dung Benson MD [address] [facility] 200 [place] [address] TESTICULAR HYPOFUNC NEC (Primary Dx); DIABETES MELLITUS TYPE II-UNCOMPL (CMS/[facility]) Social History Tobacco Use Types Packs/Day Years Used Date Smoking Tobacco: Never Assessed Sex and Gender Information Value Date Recorded Sex Assigned at Not on file 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
--- OUTSIDE RECORDS SUMMARY | 2024-11-05 15:50 | XMS_ITS | Encounter Summary ---
Author Organization [facility] Address [address] [place] [address] Care Team Providers Care Baling Machine Tender Name Role Phone Francisco Vargas MD Primary Care Provider +1 [phone] Encounter Details Date Type Department Care Team (Late st Contact Info) Description 05/05/2004 Outpatient Historical [facility] Dung Benson MD [address] [facility] 200 [place] [address] Social History Tobacco Use Types Packs/Day Years Used Date Smoking Tobacco: Never Assessed Sex and Gender Information Value Date Recorded Sex Assigned at Not on file Legal 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
--- OUTSIDE RECORDS SUMMARY | 2024-11-05 15:50 | XMS_ITS | Encounter Summary ---
Author Organization [facility] Address [address] [place] [address] Care Team Providers Care Sheep Farmer Name Role Phone Francisco Vargas MD Primary Care Provider +1 -[phone] Encounter Details Date Type Department Care Team (Latest Contact Info) Description 09/19/2002 Outpatient Historical [facility] Medicine- [facility] 19 [place] [address] Dung Benson MD [address] [facility] 200 [place] [address] ALLERGY, UNSPECIFIED (Primary Dx); DISEASES OF LIPS Social History Tobacco Use Types Packs/Day Years Used Date Smoking Tobacco: Never Assessed Sex and Gender Information Value Date Recorded Sex Assigned at Not on file 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
--- OUTSIDE RECORDS SUMMARY | 2024-11-05 15:50 | XMS_ITS | Encounter Summary ---
Author Organization [facility] Address [address] [place] [address] Care Team Providers Care Supervisor Stave Finishing Name Role Phone Francisco Vargas MD Primary Care Provider +1 -[phone] Encounter Details Date Type Department Care Team (Latest Contact Info) Description 07/03/2003 Outpatient Historical [facility]- [address] [address] Dung Benson MD [address] [facility] 200 [place] [address] HYPOGLYCEMIA NOS (Primary Dx); RESPIRATORY ABNORM NEC; ACTINIC KERATOSIS Social History Tobacco Use Types Packs/Day Years Used Date Smoking Tobacco: Never Assessed Sex and Gender Information Value Date Recorded Sex Assigned at Not on file Legal Sex 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
--- OUTSIDE RECORDS SUMMARY | 2024-11-05 15:50 | XMS_ITS | Encounter Summary ---
Author Organization [facility] Address [address] [place] [address] Care Team Providers Care Director Of Product Management Name Role Phone Francisco Vargas MD Primary Care Provider +1 -[phone] Encounter Details Date Type Department Care Team (Latest Contact Info) Description 04/08/2004 Outpatient Historical [facility] Medicine- [address] [address] Dung Benson MD [address] [facility] 200 [place] [address] DIZZINESS AND GIDDINESS (Primary Dx) Social History Tobacco Use Types Packs/Day Years Used Date Smoking Tobacco: Never Assessed Sex and Gender Information Value Date Recorded Sex Assigned at Not on file Legal Sex Male 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
--- OUTSIDE RECORDS SUMMARY | 2024-11-05 15:50 | XMS_ITS | Encounter Summary ---
Author Organization [facility] Address [address] [place] [address] Care Team Providers Care Production Broaching Machine Operator Name Role Phone Francisco Vargas MD Primary Care Provider +1 -[phone] Encounter Details Date Type Department Care Team (Latest Contact Info) Description 07/21/2005 Outpatient Historical [facility]- [address] [phone] Dung Benson MD [address] [facility] 200 [place] [address] Dizziness and Giddiness (Primary Dx); Other Congenital Anomaly of Spine Social History Tobacco Use Types Packs/Day Years Used Date Smoking Tobacco: Never Assessed Sex and Gender Information Value Date Recorded Sex Assigned at Not on file Legal 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
--- OUTSIDE RECORDS SUMMARY | 2024-11-05 15:50 | XMS_ITS | Encounter Summary ---
Author Organization [facility] Address [address] [place] [address] Care Team Providers Care Centerpuncher Name Role Phone Francisco Vargas MD Primary Care Provider +1 -[phone] Encounter Details Date Type Department Care Team (Latest Contact Info) Description 05/12/2005 Outpatient Historical [facility] [address] [place] [address] Dung Benson MD [address] [facility] 200 [place] [address] DIABETES MELLITUS TYPE II-UNCOMPL (CMS/HCC) (Primary Dx); TESTICULAR HYPOFUNC NEC Social History Tobacco Use Types Packs/Day Years Used Date Smoking Tobacco: Never Assessed Sex and Gender Information Value Date Recorded Sex Assigned at Not on file Legal 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
--- OUTSIDE RECORDS SUMMARY | 2024-11-05 15:50 | XMS_ITS | Encounter Summary ---
Author Organization [facility] Address [address] [place] [address] Care Team Providers Care Senior Clinical Data Manager Name Role Phone Francisco Vargas MD Primary Care Provider +1 -[phone] Encounter Details Date Type Department Care Team (Late st Contact Info) Description 10/13/1998 Outpatient Historical [facility] Medicine- [facility] 19 [place] [phone] Social History Tobacco Use Types Packs/Day Years Used Date Smoking Tobacco: Never Assessed Sex and Gender Information Value Date Recorded Sex Assigned at Not on file Legal Sex Male 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
--- OUTSIDE RECORDS SUMMARY | 2024-11-05 15:51 | XMS_ITS | Encounter Summary ---
Author Organization [facility] Address [address] [place] [address] Care Team Providers Care Vascular Tech Name Role Phone Francisco Vargas MD Primary Care Provider +1 -[phone] Encounter Details Date Type Department Care Team (Latest Contact Info) Description 06/21/2006 Outpatient [facility] Podiat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
--- OUTSIDE RECORDS SUMMARY | 2024-11-05 15:51 | XMS_ITS | Encounter Summary ---
Author Organization [facility] Address [address] [place] [address] Care Team Providers Care Pug Machine Operator Name Role Phone Francisco Vargas MD Primary Care Provider +1 -[phone] Encounter Details Date Type Department Care Team (Late st Contact Info) Description 07/20/[address] 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
--- OUTSIDE RECORDS SUMMARY | 2024-11-05 15:51 | XMS_ITS | Encounter Summary ---
Author Organization [facility] Address [address] [place] [address] Care Team Providers Care Hot Stamp Operator Name Role Phone Francisco Vargas MD Primary Care Provider [phone] [phone] Encounter Details Date Type Department Care Team (Latest Contact Info) Description 06/01/2006 Outpatient Historical [facility]- [address] [phone] Rafal Seth DO NO ADDRESS ON FILE Other Testicular Hypofunction (Primary Dx); Acute Bronchitis Social History Tobacco Use Types Packs/Day Years Used Date Smoking Tobacco: Never Assessed Sex and Gender Information Value Date Recorded Sex Assigned at Not on file Legal Sex Male 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
--- OUTSIDE RECORDS SUMMARY | 2024-11-05 15:51 | XMS_ITS | Clinical Summary ---
Author Organization [facility] e Address [address] [place] [address] Care Team Providers Care Mud Mixer Helper Name Role Phone Francisco Vargas MD Primary Care Provider [phone] [phone] Allergies Active Allergy Reactions Criticality Noted Date Comments Gabapentin Abdominal Pain,Dizziness Low 07/21/2016 Pregabalin Dizziness Low 12/30/2017 Medications pyridoxine (VITAMIN B6) 100 mg Tablet Take 50 mg by mouth daily. Active aspirin (ECOTRIN EC) 81 mg Tablet, Delayed Release (E.C.) Take 81 mg by mouth daily. Dr. Soto Active glipiZIDE (Glucotrol XL) 10 mg Extended Release 24 hour tablet Take 1 Tablet (10 mg) by mouth 2 times daily. 180 Tablet 3 0 Active lovastatin (MEVACOR) 20 mg tablet Take 1 Tablet (20 mg) by mouth daily with supper. 90 Tablet 3 0 Active triamcinolone acetonide (KENALOG) 0.025 % Cream Apply to affected area 2 times daily. 30 Gram 0 Active clopidogreL (Plavix) 75 mg Tablet Take 1 Tablet (75 mg) by mouth daily. 90 Tablet 3 0 Active amLODIPine (NORVASC) 10 mg tablet TAKE ONE TABLET BY MOUTH DAILY 90 Tablet 1 Active ALPRAZolam (XANAX) 0.25 mg tabletIndicatio ns:TAVARES (generalized anxiety disorder) TAKE ONE-HALF TABLET BY MOUTH TWICE DAILY NEEDED FOR ANXIETY 40 Tablet 1 Active metroNIDAZOLE (METROGEL) 0.75 % GelIndications: Rosacea Apply to affected area 2 times daily. Apply to affected areas of the face and brow 45 Gram 1 1 Active insulin degludec (Tresiba FlexTouch U-100) 100 unit/mL pen syringeIndicati ons:Type 2 diabetes mellitus with diabetic polyneuropathy, with long-term current use of insulin ([facility]) Inject 20 Units by subcutaneous injection daily at bedtime. 18 mL 4 1 Active blood sugar diagnostic (Blood Glucose Test) Strip Freestyle lit blood glucose strips checks blood sugar daily E11.9 I [id number] 300 Strip 2 1 Active lancets Daily testing 100 Each 4 1 Active baclofen 5 mg Tablet Take 5 mg by mouth daily at bedtime. 10 Tablet 1 Active Hospital, Clinic, or Other Facility Administered Medication Ordered Dose Route Frequency Start Date End Date Status methylPREDNISolone acetate (DEPO-Medrol) injection 80 mgIndications:Recurrent acute serous otitis media of right ear 80 mg IM ONE TIME ONLY 11/17/2016 Active Active Problems Problem Noted Date Diagnosed Date Renal artery stenosis 10/15/2020 PVD (peripheral vascular disease) 10/15/2020 Dizziness 05/13/2020 CVD (cerebrovascular disease) 12/27/2019 Vertebral basilar insufficiency 12/27/2019 Acquired ichthyosis 08/09/2017 Essential hypertension 07/28/2017 Lumbar stenosis 07/28/2017 Primary osteoarthritis of both hips 01/14/2017 Osteoarthritis of spine with radiculopathy, lumb ar region 01/14/2017 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 05/05/2016 TAVARES (generalized anxiety disorder) 06/03/2009 Cerebrovasc disease 02/27/2009 Overview (02/27/2009): MRI (02/07): 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 Type 2 diabetes mellitus wit h diabetic polyneuropathy, with long-term current use of insulin 08/21/2008 Overview (01/15/2010): A1: 5.6 (05/11); 5.1 (12/08); 5.5 (08/08) Microalbumin: 2/10 (Normal) Hypogonadism male 02/13/2008 Resolved Problems Problem Noted Date Diagnosed Date Resolved Date Preoperative general physical examination 07/28/2017 10/15/2020 Immunizations Immunization Administration Dates Next Due (PNEUMOVAX 23)(50 YRS UP) PN EUMOCOCCAL POLYSACCHARIDE (PPV23) 0.5 ML, IM 04/22/2009 Influenza Seasonal Unspecifi ed Formulation IM 02/14/2020,01/30/2018,01/31/2008,01/30,02/28/2006 Influenza Vaccine High Dose 65+ Yrs IM [...] file 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 Gender Identity Not on file Sexual Orientation Not on file Occupation Industry Job Start Date Job End Date Not on file Not on file Not on file Not on file Last Filed Vital Signs Vital Sign Reading Time Taken Comments Blood Pressure 130/70 10/20/2020 9:57 AM CDT Pulse 99 10/20/2020 9:57 AM CDT Temperature 36.4 C (97.6 F) 10/20/2020 9:57 AM CDT Respiratory Rate 16 10/20/2020 9:57 AM CDT Oxygen Saturation 99% 10/20/2020 9:57 AM CDT Inhaled Oxygen Concentration - - Weight 81.6 kg (180 lb) 10/20/2020 9:57 AM CDT Height 177.8 cm (5' 10 ) 10/20/2020 9:57 AM CDT Body Mass Index 25.83 10/20/2020 9:57 AM CDT Plan of Treatment Health Maintenance Due Date Last Done Comments DTAP/TDAP/TD VACCINES (1 - Tdap) 1957 ZOSTER VACCINE (1 of 2) 1988 PNEUMOCOCCAL VACCINE 50+ YEA RS (2 of 2 - PCV) 04/22/2010 04/22/2009 RSV VACCINE (60+ or ) (1 - 1-dose 75+ series) 2013 Traditional Medicare (ACO) A nnual Wellness Visit 04/10/2015 04/09/2014 DIABETES MICROALBUMIN ANNUAL SCREEN 04/02/2020 04/02/2019, 07/19/2018, 04/09/2014, Additional history exists DIABETES HBA1C Q 6 MONTHS 04/21/20212020, 02/27/2020, 11/06/2019, Additional history exists DIABETES ANNUAL FOOT EXAM 06/24/20212020, 09/13/2019, 09/13/2019, Additional history exists DIABETES ANNUAL RETINAL EXAM 09/18/2021, 10/23/2018, 10/23/2018, Additional history exists LDL CHOLESTEROL ANNUAL 10/20/2021 1, 09/13/2019, 07/19/2018, Additional history exists INFLUENZA VACCINE (#1) 2024 0, 02/12/2019, 02/01/2018, Additional history exists Medical Devices Implanted Type Area Tire Layer Device Identifier Shelf Expiration Date Model / Serial / Lot Hemostatic Gelfoam Powder 1gm [id number] - [id number] Implanted:Qty: 1 on 08/05/2017 by Mahin Sullivan MD at [facility] Hemostatic N/A: Back PFIZER- PHARM 03/01/2020 [id number] / / [id number] Procedures Procedure Name Priority Date/Time Associated Diagnosis Comments LIPID PANEL Routine 10/20/2020 10:34 AM CDT Type 2 diabetes mellitus with diabetic polyneuropathy, with long-term current use of insulin ([facility]) HEMOGLOBIN A1C Routine 10/20/2020 10:34 AM CDT Type 2 diabetes mellitus with diabetic polyneuropathy, with long-term current use of insulin ([facility]) MICROALBUMIN/CREATI NINE RATIO, RANDOM UR Routine 04/02/2019 2:03 PM HEALTH COACH Diabetes mellitus with complication ([facility]) DIABETES EYE EXAM Routine 10/17/2018 from Last 3 Months or Most Recently Relevant to Health Maintenance Results * (ABNORMAL) HEMOGLOBIN A1C (10/20/2020 10:34 AM CDT) [facility] HEMOGLOBIN A1C 7.4(H) <5.7 % of total Hgb [facility] Comment: For someone without known diabetes, a [...] A1c for diagnosis of diabetes for children. Test Performed at: [facility] [address] [place] [address] Jose A Arellano D.O., MPH Blood 10/20/2020 10:3 4 AM CDT 10/21/2020 1:15 AM CDT Francisco Vargas MD CHEMISTRY ORDERABLES Gail post Result [facility] [address] [place] [address] * LIPID PANEL (10/20/2020 10:34 AM CDT) [facility] CHOLESTEROL 133 <200 mg/dL [facility] HDL 56 > OR = 40 mg/dL [facility] TRIGLYCERIDE 67 <150 mg/dL [facility] LDL CALCULATED 63 mg/dL (calc) [facility] Comment: Reference range: <100 Desirable range <100 mg/dL for primary prevention; <70 mg/dL for patients with CHD or diabetic patients with > or = 2 CHD risk factors. LDL-C is now calculated using the Chandra calculation, which is a validated novel method providing better accuracy than the Friedewald equation in the estimation of LDL-C. Eric EDOUARD et al. ALEXSANDRA. 2013;310(19): 9863-0462 (http://education.uFaber.MessageOne/faq/SUH278) CHOL/HDL RATIO 2.4 <5.0 (calc) [facility] TOTAL NON-HDL CHOL(LDL+VLDL) 77 <130 mg/dL (calc) [facility] Comment: For patients with diabetes plus 1 major ASCVD risk factor, treating to a non-HDL-C goal of <100 mg/dL (LDL-C of <70 mg/dL) is considered a therapeutic option. Test [facility]: [facility] [address] [place] [address] Jose A Arellano D.O., MPH Blood 10/20/2020 10:3 4 AM CDT 10/21/2020 1:15 AM CDT Francisco Vargas MD CHEMISTRY ORDERABLES Gail l Result [facility] [address] [place] [address] * MICROALBUMIN/CREATININE RATIO, RANDOM UR (04/02/2019 2:03 PM HEALTH COACH) MICROALBUMIN, URINE <1.2 No Reference Range mg/dL 04/02/2019 9:12 PM HEALTH COACH [facility] CREATININE, URINE 67.2 40.0 - 278.0 mg/dL 04/02/2019 9:12 PM [facility] Comment:Reference Range vari es with fluid intake and diet. Urine URINE SPECIMEN OBTAINED BY CLEAN CATCH PROCEDURE / Unknown Collection / Unknown 04/02/2019 2:03 PM HEALTH COACH 04/02/2019 7:35 PM HEALTH COACH Narrative [facility] - 04/02/2019 9:12 PM HEALTH COACH Condition Microalbumin/Creat ratio Normal Males <17 Normal Females <25 Microalbuminuria Males 17-299 Microalbuminuria Females 25-299 Overt proteinuria >=300 Unable to calculate urine microalbumin/creatinine ratio because urine microalbumin result is outside of reportable range. us Kimberly Cavazos MD URINE ORDERABLES Final Resu lt [facility]# [id number] [address] [place] [address] * DIABETES EYE EXAM (10/17/2018) us Abstract Spg Provider HEALTH MAINTENANCE Final R esult from Last 3 Months or Most Recently Relevant to Health Maintenance Insurance MEDICARE PART A AND B [employer]LD [employer] [facility] Medicare Part D Advance Directives For more information, please contact: [phone] * Full Code (Latest Code Status on File) Date Activated Date Inactivated Comments 08/05/2017 7:26 AM 08/05/2017 4:05 PM Care Teams Mud Mixer Helper Relationship Specialty Start Date End Date Francisco Vargas MD [address] [address] PCP - General Family Practice 10/28/20
--- OUTSIDE RECORDS SUMMARY | 2024-11-05 15:51 | XMS_ITS | Encounter Summary ---
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 Gender Identity Not on file Sexual Orientation Not on file documented as of this encounter Plan of Treatment Not on file documented as of this encounter Procedures Procedure Name Priority Date/Time Associated Diagnosis Comments VITAMIN B12 AND FOLATE Routine 08/01/2006 12:08 PM CDT documented in this encounter Results * (ABNORMAL) VITAMIN B12 AND FOLATE (08/01/2006 12:08 PM CDT) FOLATE, SERUM 35.62 >=5.38 ng/dL INTERFACE SYSTEM VITAMIN B12 1181(H) 211 - 911 pg/dL INTERFACE SYSTEM 08/01/2006 12:0 8 PM CDT us Rafal Seth DO CHEMISTRY ORDERABLES Edited INTERFACE SYSTEM Refer to clinic/hospital department documented in this encounter Visit Diagnoses Not on filedocumented in this encounter Care Teams Production Designer Relationship Specialty Start Date End Date Francisco Vargas MD [address] [phone] PCP - General Family Practice 10/28/20 documented as of this encounter
--- OUTSIDE RECORDS SUMMARY | 2024-11-05 15:51 | XMS_ITS | Encounter Summary ---
Author Organization [facility] Address [address] [place] [address] Care Team Providers Care Lapel Stitcher Name Role Phone Francisco Vargas MD Primary Care Provider [phone] [phone] Encounter Details Date Type Department Care Team (Latest Contact Info) Description 06/10/[address] 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
--- OUTSIDE RECORDS SUMMARY | 2024-11-05 15:51 | XMS_ITS | Encounter Summary ---
Author Organization [facility] Address [address] [place] [address] Care Team Providers Care Cheese Grader Name Role Phone Francisco Vargas MD Primary Care Provider +1 [phone] Encounter Details Date Type Department Care Team (Latest Contact Info) Description 08/10/2006 Outpatient Historical [facility]- [address] [phone] Rafal Seth DO NO ADDRESS ON FILE Other Malaise and Fatigue (Primary Dx); DM w/o Complication Type II (CMS/HCC); Insomnia, Unspecified; Acute Upper Respiratory Infections of Unspecified Site Social History Tobacco Use Types Packs/Day Years Used Date Smoking Tobacco: Never Assessed Sex and Gender Information Value Date Recorded Sex Assigned at Not on file Legal 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 [address] [place] [address] PCP - General Family Practice 10/28/20 documented as of this encounter
[2024-11-05 16:00] VITALS: BP 155/79; PULSE 72; TEMP 36.4; O2SAT 98
--- NOTE | 2024-11-05 16:05 | ECG_ITS ---
[employer] Test Date: 2024-11-05 Pat Name: Clinton Duran Department: Room: Gender: Male Cold Type Artist: : 1940 Requested By: Guero Aguirre Order Number: [id number] Hedy MD: Guillermo Cooper M.D. Measurements Intervals [place] Rate: 73 P: 64 HI: 202 QRS: -15 QRSD: 100 T: 31 QT: 384 QTc: 425 Interpretive Statements SINUS RHYTHM LOW QRS VOLTAGE IN PRECORDIAL LEADS [QRS DEFLECTION < 1.0 mV IN CHEST LEADS] INCOMPLETE RIGHT BUNDLE BRANCH BLOCK [90+ ms QRS DURATION, TERMINAL R IN V1/V2, 40+ ms S IN I/aVL/V4/V5/V6] POSSIBLE ANTERIOR MYOCARDIAL INFARCTION , PROBABLY OLD [30 ms Q WAVE IN V3/V4, OR R < 0.2 mV IN V4] Compared to ECG 06/11/2024 18:08:37 Myocardial infarct finding now present Sinus arrhythmia no longer present First degree AV block no longer present Electronically Signed On 11-06-2024 08:18:39 CDT by Guillermo Cooper M.D. [email or web address]
[2024-11-05 16:35] LABS: Hematocrit 41.6 % (37-53); Hemoglobin 14.10 g/dL (11.27-16.99); Mean Corpuscular HGB Conc 33.9 g/dL (30-55); Mean Corpuscular Hemoglobin 34.2 pg (27-33); Mean Corpuscular Volume 101.0 fl (82-101); Nucleated Red Blood Cells % 0 %; Platelet Count 150 10^3/cmm (157-399); Red Blood Count 4.12 10^6/uL (3.85-5.65); White Blood Count 6.15 10^3/uL (3.29-11.43)
[2024-11-05 16:47] LABS: INR 0.90 (0.8-1.2); Prothrombin Time 12.80 SECONDS (12.1-14.9)
[2024-11-05 17:03] LABS: Alanine Aminotransferase 16 U/L (0-41); Albumin Level 4.1 g/dL (3.5-5.2); Alkaline Phosphatase 128 U/L (40-130); Anion Gap 15.7 (5-19); Aspartate Amino Transferase 16 U/L (0-40); Blood Urea Nitrogen 21 mg/dL (8-23); Calcium 9.4 mg/dL (8.5-10.5); Carbon Dioxide 23 mmol/L (22-29); Chloride 104 mmol/L (98-107); Creatinine Clr Calc Pharmacy 51.5125; Globulin 2.8 g/dL (1.3-4.6); Glucose 270 mg/dL (65-115); Osmolality Calculated 299 mOsm/kg (285-295); Potassium 4.7 mmol/L (3.5-5.1); Sodium 138 mmol/L (136-145); Thyroid Stimulating Hormone 2.13 uIU/mL (0.27-4.20); Total Protein 6.9 g/dL (6.6-8.7)
--- NOTE | 2024-11-05 19:23 | CTR_ITS ---
PROCEDURE INFORMATION: Exam: CT Head Without Contrast Exam date and time: 11/05/2024 7:54 PM Age: 84 years old Clinical indication: Weakness, extremity; Bilateral TECHNIQUE: Imaging protocol: Computed tomography of the head without contrast. Radiation optimization: All CT scans at this facility use at least one of these dose optimization techniques: automated exposure control; mA and/or kV adjustment per patient size (includes targeted exams where dose is matched to clinical indication); or iterative reconstruction. COMPARISON: CT head wo con* [id number] 10/24/2018 2:02 PM RADIATION DOSE METRICS: Total DLP (mGy-cm): 1064.48 FINDINGS: Brain: No acute intra-axial hemorrhage. No masses. Normal arzate-white matter differentiation. No midline shift or mass effect. 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 This has progressed since the last exam. There are a few old lacunar infarcts in the basal ganglia bilaterally. Cerebral ventricles: No ventriculomegaly. Paranasal sinuses: Visualized sinuses are unremarkable. No fluid levels. Mastoid air cells: Visualized mastoid air cells are well aerated. Bones: Unremarkable. No acute fracture. Soft tissues: Unremarkable. CT/CT head wo con* [id number] IMPRESSION: No acute intracranial abnormality.
--- NOTE | 2024-11-05 19:23 | W.ED.WEAKNES ---
HPI - Weakness General: Chief complaint: Weakness Stated complaint: weak Time Seen by Provider: 11/05/24 19:16 Source: patient Mode of arrival: ambulatory Limitations: no limitations History of Present Illness: 84-year-old male states has been having some increasing weakness over the last few weeks states that today it got much worse states that he is not able to ambulate on his own and is feels extremely weak. He denies any fevers denies any vomiting or diarrhea denies any focal deficits denies headache. He denies any chest pain Associated symptoms: Denies chest pain, chills, fever(s), headache(s), nausea or vomiting Related Data Home Medications ?Medication ?Instructions ?Recorded ?Confirmed alprazolam 0.25 mg tablet 0.125 mg PO BID 07/04/19 06/26/24 clopidogrel 75 mg tablet 75 mg PO BEDTIME 07/04/19 06/26/24 Held on 03/19/24. Instructions: Resume on 03/21/24. lovastatin 20 mg tablet 20 mg PO BEDTIME 03/30/21 06/26/24 isosorbide mononitrate 30 mg 30 mg PO DAILY 03/13/24 06/26/24 tablet,extended release 24 hr pyridoxine (vitamin B6) 250 mg 250 mg PO DAILY 09/05/24 tablet tamsulosin 0.4 mg capsule 0.4 mg PO DAILY 09/05/24 Previous Rx's ?Medication ?Instructions ?Recorded meclizine 25 mg tablet 25 mg PO TID #270 tabs 06/26/24 Allergies Allergy/AdvReac Type Severity Reaction Status Date / Time lisinopril AdvReac Mild Rashes and Verified 11/05/24 16:09 Dizziness Review of Systems Const: Reports: fatigue and malaise; Denies: fever(s), chills, body aches or change in appetite ENMT: Denies: throat pain or dental pain Card: Denies: chest pain Resp: Denies: dyspnea GI: Denies: abdominal pain, nausea, vomiting or diarrhea Musc: Denies: neck pain or back pain Skin/Breast: Denies: rash Neuro: Denies: headache(s) PFSH ED PFSH: Medical History Renal insufficiency Dizziness Atherosclerotic heart disease of [place] coronary artery with other forms of angina pectoris EKG revealed on 12/26/2019 revealed a sinus rhythm with a normal ST-T's. No evidence of pericarditis or ischemia. Abnormal stress test Chest pain Hyperlipidemia CAD (coronary artery disease) Status post drug-eluting stent placement to mid circumflex and balloon angioplasty of jailed first obtuse marginal. Continue dual antiplatelet therapy and low-dose Crestor. Hypertension Well-controlled. Continue current medications. TIA (transient ischemic attack) Osteoarthritis Diabetes Surgical History History of back surgery H/O hernia repair Stented coronary artery H/O vein stripping Family History Brother Cancer Chronic kidney disease (CKD) Diabetes Mother Diabetes Father Diabetes Sister Diabetes Denies family history of CAD (coronary artery disease) Clotting disorder Dementia Suicide Anesthesia complication Bleeding disorder Lung disease Stroke Social History Smoking and tobacco/nicotine status: never used tobacco/nicotine Alcohol intake: never Substance/Drug Use: never Physical Exam Const: COMMON NORMALS: patient oriented x3 HENMT: COMMON NORMALS: normocephalic and atraumatic HEAD & SCALP: normocephalic and atraumatic Eye: COMMON NORMALS: Equal, round and reactive pupils present and EOMs intact bilaterally PUPIL: Yes Equal, round and reactive pupils present Neck/C-Spine: COMMON NORMALS: full ROM and supple Chest: COMMONS NORMALS: normal inspection of the chest and normal palpation of entire chest wall Resp: COMMON NORMALS: normal respiratory effort, No retractions, No use of accessory muscles and clear to auscultation bilaterally AUSCULTATION: clear to auscultation bilaterally Cardio: COMMON NORMALS: regular rate, regular rhythm and No murmurs present (Cardio) RATE: regular rate RHYTHM: regular rhythm GI: COMMON NORMALS: Normal to inspection, nondistended, normoactive bowel sounds present, Soft to palpation, non-tender and no masses PALPATION: Yes Soft to palpation Extremity: COMMON NORMALS: normal to inspection and full ROM Neuro: COMMON NORMALS: patient oriented x3, moves all extremities and no focal motor deficits Psych: COMMON NORMALS: mental status grossly normal, Normal thought process present and cooperative THOUGHT PROCESS: Normal thought process present Skin: COMMON NORMALS: no rashes or lesions noted and no wounds GENERAL SKIN EXAM: no rashes or lesions noted Course Vital Signs: Vital signs: Vital Signs Temperature 97.5 F L 11/05/24 16:00 Pulse Rate 104 H 11/05/24 19:30 Respiratory Rate 16 11/05/24 19:30 Blood Pressure 167/101 11/05/24 19:30 Pulse Oximetry 98 11/05/24 19:30 Oxygen Delivery Me thod Room Air 11/05/24 16:00 MDM - Weakness Medical Decision Making Patient presents for generalized weakness has been going on for months blood work head CT urinalysis are all normal here. He is able to ambulate to the bathroom here he stable for discharge follow-up with PCP return if worsening. Medical Records I reviewed the patient's medical records. Lab Data I reviewed the patient's lab results. 11/05/24 16:23 11/05/24 16:23 Radiology Impressions Chest X-Ray 11/05/24 15:46 IMPRESSION: No acute findings. Head CT 11/05/24 19:23 IMPRESSION: No acute intracranial abnormality. Laboratory Results WBC 6.15 10^3/uL (3.29-11.43) 11/05/24 16:23 RBC 4.12 10^6/uL (3.85-5.65) 11/05/24 16:23 Hgb 14.10 g/dL (11.27-16.99) 11/05/24 16:23 Hct 41.6 % (37-53) 11/05/24 16:23 MCV 101.0 fl (82-101) 11/05/24 16:23 MCH 34.2 pg (27-33) H 11/05/24 16:23 MCHC 33.9 g/dL (30-55) 11/05/24 16:23 RDW 12.2 % (12.1-15.1) 11/05/24 16:23 Plt Count 150 10^3/cmm (157-399) L 11/05/24 16:23 MPV 9.8 fL (7.4-10.4) 11/05/24 16:23 Neut % (Auto) 66.6 % 11/05/24 16:23 Lymph % (Auto) 21.3 % 11/05/24 16:23 [place] % (Auto) 10.1 % 11/05/24 16:23 Eos % (Auto) 1.6 % 11/05/24 16:23 Baso % (Auto) 0.2 % 11/05/24 16:23 Neut # (Auto) 4.10 10^3/uL (1.8-7.7) 11/05/24 16:23 Lymph # (Auto) 1.3 10^3/uL (0.8-4.8) 11/05/24 16:23 [place] # (Auto) 0.6 10^3/uL (0.2-0.9) 11/05/24 16:23 Eos # (Auto) 0.1 10^3/uL (0.0-0.8) 11/05/24 16:23 Baso # (Auto) 0.0 10^3/uL (0.0-0.1) 11/05/24 16:23 Nucleated RBC % (auto) 0 % 11/05/24 16:23 Nucleated RBCs # 0.0 /100WBC 11/05/24 16:23 PT 12.80 SECONDS (12.1-14.9) 11/05/24 16:23 INR 0.90 (0.8-1.2) 11/05/24 16:23 Sodium 138 mmol/L (136-145) 11/05/24 16:23 Potassium 4.7 mmol/L (3.5-5.1) 11/05/24 16:23 Chloride 104 mmol/L (98-107) 11/05/24 16:23 Carbon Dioxide 23 mmol/L (22-29) 11/05/24 16:23 Anion Gap 15.7 (5-19) 11/05/24 16:23 BUN 21 mg/dL (8-23) 11/05/24 16:23 Creatinine 1.1 mg/dL (0.7-1.2) 11/05/24 16:23 GFR Calculation Not Reportable 11/05/24 16:23 Glucose 270 mg/dL (65-115) H 11/05/24 16:23 Calculated Osmolality 299 mOsm/kg (285-295) H 11/05/24 16:23 Calcium 9.4 mg/dL (8.5-10.5) 11/05/24 16:23 Total Bilirubin 0.3 mg/dL (0.15-1.2) 11/05/24 16:23 AST 16 U/L (0-40) 11/05/24 16:23 ALT 16 U/L (0-41) 11/05/24 16:23 Alkaline Phosphatase 128 U/L (40-130) 11/05/24 16:23 Total Protein 6.9 g/dL (6.6-8.7) 11/05/24 16:23 Albumin 4.1 g/dL (3.5-5.2) 11/05/24 16:23 Globulin 2.8 g/dL (1.3-4.6) 11/05/24 16:23 TSH 2.13 uIU/mL (0.27-4.20) 11/05/24 16:23 Urine Color Yellow (Yellow) 11/05/24 19:37 Urine Appearance Clear (CLEAR) 11/05/24 19:37 Urine pH 6.0 (5-7) 11/05/24 19:37 Ur Specific [place] 1.021 (1.005-1.030) 11/05/24 19:37 Urine Protein 1+ (Negative) A 11/05/24 19:37 Urine Glucose (UA) 1+ (Normal) H 11/05/24 19:37 Urine Ketones Negative (Negative) 11/05/24 19:37 Urine Blood Negative (Negative) 11/05/24 19:37 Urine Nitrate Negative (Negative) 11/05/24 19:37 Urine Bilirubin Negative (Negative) 11/05/24 19:37 Urine Urobilinogen 1.0 mg/dL (Negative) 11/05/24 19:37 Ur Leukocyte Esterase Negative (Negative) 11/05/24 19:37 Urine RBC 0-2 /hpf (0-2) 11/05/24 19:37 Urine WBC 0-5 /hpf (0-5) 11/05/24 19:37 Ur Squamous Epith Cells 0-5 /hpf (0-5) 11/05/24 19:37 Amorphous Sediment Not Reportable 11/05/24 19:37 Urine Bacteria None seen /hpf (NONE) 11/05/24 19:37 Hyaline Casts 1.21 /lpf 11/05/24 19:37 All radiology interpretation(s) finalized by discharge Discharge Plan Discharge Patient Disposition: Home Clinical Impression: Generalized weakness Condition: Stable Prescriptions: No Action clopidogrel 75 mg tablet 75 mg PO BEDTIME alprazolam 0.25 mg tablet 0.125 mg PO BID isosorbide mononitrate 30 mg tablet extended release 24 hr 30 mg PO DAILY tamsulosin 0.4 mg capsule 0.4 mg PO DAILY pyridoxine (vitamin B6) 250 mg tablet 250 mg PO DAILY meclizine 25 mg tablet 25 mg PO TID Qty: 270 2RF lovastatin 20 mg tablet 20 mg PO BEDTIME Discharge Orders: Discharge ED (Routine); Ordered 11/05/24 Ordered By: Guero Aguirre Referrals: Francisco Vargas [Primary Care Provider, Family Practice] - 4-7 days Discharge Diet: Advance as tolerated Discharge Activity: Resume usual activity Patient Instructions: Weakness (ED) Print Language: Danish Coding Level of Care Code ED Prison Officer for Dawn Ho
[2024-11-05 19:30] VITALS: BP 167/101; PULSE 104; RESP 16; O2SAT 98
[2024-11-05 19:50] LABS: Glucose Urine UA 1+ (Normal); Nitrate Urine Negative (Negative); Specific Gravity, Urine 1.021 (1.005-1.030)
[2024-11-05 19:52] LABS: Add Urine Microscopic? YES
[2024-11-05 20:36] VITALS: BP 177/98; PULSE 71; RESP 16; O2SAT 100
== END 2024-11-05 20:37 | disposition home or self-care (01) ==
PROVIDERS: Emergency Provider Emergency Medicine; PCP Family Medicine
DX: R53.1 Weakness (principal); Z79.02 Long term (current) use of antithrombotics/antiplatelets; E11.9 Type 2 diabetes mellitus without complications; Z86.73 Personal history of transient ischemic attack (TIA), and cerebral infarction without residual deficits; I25.10 Atherosclerotic heart disease of native coronary artery without angina pectoris; I10 Essential (primary) hypertension
CPT/HCPCS: 36415; 70450; 71045; 80053; 81001; 84443; 85025; 85610; 93005; 99285